=== PATIENT | female | born 1965 | race Caucasian/White ===

== ENCOUNTER 2018-01-09 17:49 | Inpatient (IN) | payer OTHER ==
--- NOTE | 2018-01-09 17:59 | PDOC ---
Rapid Medical Evaluation Chief Complaint: Dialysis Shunt Problem Time Seen by Provider: 01/09/18 17:56 Medical Evaluation: 01/09/18 17:56 patient came from [facility] yesterday on dialysis there reports missing one day of dialysis. patient reports feels dizzy and nausea, chest pain. history CRF, HTN, diabetes. PE: patient alert ox3. breath sounds clear, b/l pedal edema A: missed dialysis; chest pain P; labs EKG patient to the Er for further management of care. 01/09/18 18:00 Discharge Disposition - Diagnosis Missed dialysis Chest pain Qualifiers: Chest pain type: unspecified Qualified Code(s): R07.9 - Chest pain, unspecified - Referrals - Patient Instructions - Post Discharge Activity
[2018-01-09 18:49] LABS: BASO % 0.5 % (0-2.0); EOS % 0.8 % (0-4.5); HEMOGLOBIN 9.2 GM/dL (10.7-15.3); LYMPH % 12.5 % (8-40); MCH 27.2 pg (25.7-33.7); MCHC 32.7 g/dl (32.0-36.0); MEAN PLT VOLUME 9.1 fl (7.5-11.1); MONO % 5.4 % (3.8-10.2); NEUT % 80.8 % (42.8-82.8); PLATELET COUNT 187 K/MM3 (134-434); RBC 3.37 M/mm3 (3.60-5.2); RDW 16.2 % (11.6-15.6); WHITE BLOOD COUNT 7.3 K/mm3 (4.0-10.0)
--- NOTE | 2018-01-09 19:00 | PDOC ---
History of Present Illness - General Chief Complaint: Blood Pressure Problem Stated Complaint: Weakness Time Seen by Provider: 01/09/18 17:56 - History of Present Illness Initial Comments: 01/09/18 18:48 52 yo F with h/o HTN, ESRD ( dialysis M, ), CAD, who p/w fatigue, and chest tightness. Patient reports non pleuritic, chest tightness at rest, SOB, non productive cough, fatigue, and wheezing beginning this AM. Patient recently arrives from [facility] yesterday following 8 year residence. States that she missed dialysis yesterday, and is concerned because her symptoms are typical of her missed dialysis. Able to produce urine. Patient denies N/V, F,C, Leg pain/swelling, Palpitations, Orthopnea, PND, urinary complaints, abdominal pain, diarrhea, constipation, lightheadedness, sensory changes. PMHx: as noted above ROS: as noted SHx: 1/2 ppd x 20 years. Denies Etoh, IVDA. Allergies: NKDA PMD: None Past History - Past Medical History Allergies/Adverse Reactions: Allergies Allergy/AdvReac Type Severity Reaction Status Date / Time No Known Allergies Allergy Verified 01/09/18 18:00 Home Medications: Ambulatory Orders Calcium Carbonate/Vitamin D3 [Calcium 500 + Vit D3 400 Tab] 1 each PO DAILY 03/17 Esomeprazole Magnesium 40 mg PO ASDIR 01/09/18 Folic Acid 5 mg PO DAILY 01/09/18 Isosorbide Mononitrate [Ismo -] 20 mg PO ASDIR 01/09/18 COPD: No Dialysis: Yes (friday and ) HTN: Yes - Suicide/Smoking/Psychosocial Hx Smoking History: Never smoked Review of Systems - Review of Systems Comments:: 01/09/18 19:00 GENERAL/CONSTITUTIONAL: No fever or chills. No weakness. HEAD, EYES, EARS, NOSE AND THROAT: No change in vision. No ear pain or discharge. No sore throat. CARDIOVASCULAR: +chest pain and shortness of breath RESPIRATORY: + cough, wheezing. No hemoptysis. GASTROINTESTINAL: No nausea, vomiting, diarrhea or constipation. GENITOURINARY: No dysuria, frequency, or change in urination. MUSCULOSKELETAL: No joint or muscle swelling or pain. No neck or back pain. SKIN: No rash NEUROLOGIC: No headache, vertigo, loss of consciousness, or change in strength/ sensation. ENDOCRINE: No increased thirst. No abnormal weight change HEMATOLOGIC/LYMPHATIC: No anemia, easy bleeding, or history of blood clots. ALLERGIC/IMMUNOLOGIC: No hives or skin allergy. *Physical Exam - Vital Signs Last Vital Signs Temp Pulse Resp BP Pulse Ox 98.5 F 91 H 22 H 201/102 H 99 01/09/18 18:06 10 18:06 01/09/18 18:06 01/09/18 18:06 01/09/18 18:06 - Physical Exam Comments: 01/09/18 19:00 GENERAL: Awake, alert, and fully oriented, in no acute distress HEAD: No signs of trauma, normocephalic, atraumatic EYES: PERRLA, EOMI, sclera anicteric, conjunctiva clear ENT: + Dry mucous membranes. Hearing grossly normal, nares patent, oropharynx clear without exudates. Moist mucosa NECK: Normal ROM, supple, no lymphadenopathy, JVD, or masses LUNGS: No distress, speaks full sentences, clear to auscultation bilaterally HEART: Regular rate and rhythm, normal S1 and S2, no murmurs, rubs or gallops, peripheral pulses normal and equal bilaterally. ABDOMEN: Soft, nontender, normoactive bowel sounds. No guarding, no rebound. No masses EXTREMITIES : Normal inspection, Normal range of motion, no edema. No clubbing or cyanosis. NEUROLOGICAL: Cranial nerves II through XII grossly intact. Normal speech, normal gait, no focal sensorimotor deficits SKIN: Warm, Dry, normal turgor, no rashes or lesions noted Heart Score/ECG Review - History History: Slightly suspicious - Electrocardiogram EKG: Non specific repolarization disturbance - Age Age: 45-65 - Risk Factors Risk Factors Heart Score: Yes Hx Hypercholesterolemia, Yes Hx Hypertension, Yes Smoking History, Yes Positive family hx of cardiac disease Based on the list above the patient has:: >/=3 risk factors or Hx atherosclerotic disease - Troponin Troponin: 1-3x normal limit - Score Heart Score - Total: 5 ED Treatment Course - LABORATORY CBC & Chemistry Diagram: 01/09/18 18:24 01/09/18 18:24 Medical Decision Making - Medical Decision Making 01/09/18 19:38 52 yo F with h/o HTN, ESRD ( dialysis M, Th), CAD, who p/w fatigue, and chest tightness. BP 201/102, Hr 91, RR 22, AF. ACS/VT r/o. Missed dialysis. Will evaluate for volume overload, cardiac dyssarythmias, electrolyte abnml, metabolic and toxic derangements, acid-base disturbances, infection. ED Course: 01/09/18 19:43 BUN/Cr: 70/8.2 Glu: 392 01/09/18 19:44 Trop: 0.08 01/09/18 19:49 EKG: Ectopic atrial rhythm, LVH. TWI lateral leads. Absent TERESA. Elevated heart score: 5 Plan to admit to inpt. 01/09/18 19:[address] Garcia. 01/09/18 21:[address] Banuelos. Agrees with dispo. Patient to receive dialysis in AM. *DC/Admit/Observation/Transfer Diagnosis at time of Disposition: Missed dialysis Chest pain Qualifiers: Chest pain type: unspecified Qualified Code(s): R07.9 - Chest pain, unspecified HTN (hypertension) Qualifiers: Hypertension type: unspecified secondary hypertension Qualified Code(s): I15.9 - Secondary hypertension, unspecified - Discharge Dispostion Decision to Admit order: Yes - Referrals - Patient Instructions - Post Discharge Activity
[2018-01-09 19:07] LABS: INR 1.14 (0.83-1.09); PROTHROMBIN TIME (PATIENT) 13.5 SEC (9.7-13.0)
[2018-01-09 19:30] LABS: ALBUMIN 2.8 g/dl (3.4-5.0); ALK PHOS 280 U/L (45-117); ANION GAP 13 MMOL/L (8-16); BILIRUBIN,TOTAL 0.4 mg/dL (0.2-1); BLOOD UREA NITROGEN 70 mg/dL (7-18); CALCIUM 8.9 mg/dL (8.5-10.1); CHLORIDE 100 mmol/L (98-107); CO2 22 mmol/L (21-32); MAGNESIUM 2.4 mg/dL (1.8-2.4); POTASSIUM 4.5 mmol/L (3.5-5.1); SGOT/AST 17 U/L (15-37); SGPT/ALT 21 U/L (13-61); SODIUM 134 mmol/L (136-145); TOT PROT 6.1 g/dl (6.4-8.2)
[2018-01-09 19:32] LABS: CREATININE 8.2 mg/dL (0.55-1.3); GLUCOSE,RANDOM 392 mg/dL (74-106)
--- NOTE | 2018-01-09 20:01 | PDOC ---
Attending Attestation - Resident Resident Name: JostinAndrewMiguel - ED Attending Attestation I have performed the following: I have examined & evaluated the patient, The case was reviewed & discussed with the resident, I agree w/resident's findings & plan, Exceptions are as noted - HPI HPI: 52y F hx of IDDM, CAD, htn, ESRD, CAD, presents with malaise and chest tightness. pt endorses some sob, nonprodctive cough, generalized weakness. Recent travel for [facility], had missed dialysis yesterday. PT notes her sx is cw her sypmtoms when she misses dialysis. pt noted hypertensive on arrival - Physicial Exam PE: 01/10/18 02:47 GENERAL: Awake, alert, and fully oriented, in no acute distress. HEAD: Normal with no signs of trauma. LUNGS: Breath sounds equal, clear to auscultation bilaterally. No wheezes, and no crackles. No accessory muscle use. HEART: Regular rate and rhythm, normal S1 and S2 with diastolic decrescendo murmur. ABDOMEN: Soft, nondistended EXT: b/l le edema - Medical Decision Making 01/10/18 02:48 esrd, kenny llikely need dialysis trop 0.08 will admit for further mangaement Heart Score/ECG Review - ECG Impressions Comment:: 01/09/18 22:23 Twelve-lead EKG was performed and reviewed by me. There is normal sinus rhythm with a normal rate. rate of 83 LVH, TWI in lateral leads
--- NOTE | 2018-01-09 21:18 | PN ---
Teaching Attending Note Name of Resident: Vincent Camara ATTENDING PHYSICIAN STATEMENT I saw and evaluated the patient. I reviewed the resident's note and discussed the case with the resident. I agree with the resident's findings and plan as documented. SUBJECTIVE: Patient is 52 year old woman with history of HTN, ESRD (dialysis M, Th), insulin -treated DM, CAD, who p/w fatigue, and chest tightness. Patient reports non pleuritic, chest tightness at rest, SOB, non productive cough, fatigue, and wheezing beginning this AM. Patient recently arrived on a long airline flight from [facility] yesterday following 8 year residence. States that she missed dialysis yesterday, and is concerned because her symptoms are typical of her missed dialysis. Able to produce urine. She vomited twice but had no diarrhea. Patient denies leg pain, palpitations, orthopnea, PND, urinary complaints or lightheadedness. OBJECTIVE: Alert, Pale and Weak Vital Signs Period Temp Pulse Resp BP Sys/Shields Pulse Ox Last 24 Hr 98.5 F 88-91 17-22 176-201/90-102 95-99 HEENT: No Jaundice, eye redness or discharge, PERRLA, EOMI. Normocephalic, atraumatic. External ears are normal and hearing is grossly intact. No nasal discharge. Neck: Supple, nontender. No palpable adenopathy or thyromegaly. No JVD Chest: Good effort. Clear to auscultation and percussion. Heart: Regular. No S3, rub or murmur Abdomen: Not distended, soft, nontender and no HSM. No rebound or guarding. Normoactive bowel sounds. Ext: Peripheral pulses intact. Leg edema. Left forearm AVF. Skin: Warm and dry. No petechiae, rash or ecchymosis. Neuro: Alert. Oriented x3. CN 2-12 grossly intact. Sensation grossly intact in all four extremities and DTR are symmetric. Home Medications Medication Instructions Recorded Calcium Carbonate/Vitamin D3 1 each PO DAILY 01/09/18 [Calcium 500 + Vit D3 400 Tab] Esomeprazole Magnesium 40 mg PO ASDIR 01/09/18 Folic Acid 5 mg PO DAILY 01/09/18 Isosorbide Mononitrate [Ismo -] 20 mg PO ASDIR 01/09/18 Abnormal Lab Results 01/09/18 01/09/1801/09/18 18:24 18:24 18:24 RBC 3.37 L Hgb 9.2 L Hct 28.0 L RDW 16.2 H PT with INR 13.50 H INR 1.14 H Sodium 134 L BUN 70 H Creatinine 8.2 H* Random Glucose 392 H* Alkaline Phosphatase 280 H Troponin I 0.08 H Total Protein 6.1 L Albumin 2.8 L ASSESSMENT AND PLAN: 1. Chest pain - Mildly elevated troponin may be due to demand ischemia but she also has T wave inversion in lateral leads. Repeat troponin is unchanged and EKG changes are fixed. Admit to telemetry. Get ECHO. Will rule out PE/DVT with ( VQ scan, doppler scan) in view of long flight from [facility]. Abdominal findings may be due to uremic gastritis. Will get CT scan of chest, abd/pelvis and treat with IV protonix. ESRD - consult nephrology for dialysis. Check HbA1c. Restart home antihypertensive drugs. 2. Hypoalbuminemia - Possibly due to combined effects of malnutrition and inflammation associated with comorbid chronic conditions. Will ensure adequate dietary protein intake and also consult strategic analyst. Ensure adequate dialysis. 3. Anemia - Likely chiefly due to ESRD. Do basic anemia work up including serial stool guaiacs, reticulocyte count and iron studies. Would benefit from Procrit therapy once iron replete. 4. Tobacco Use We will provide patient all the necessary assistance to facilitate smoking cessation and prescribe Nicotine patch. 5. DVT prophylaxis - Heparin 5000u sq tid. 6. Advance directives - Full code
--- NOTE | 2018-01-09 21:37 | HP ---
CHIEF COMPLAINT: chest pain, abdominal pain PCP: HISTORY OF PRESENT ILLNESS: Patient is a 52 year old female history of ESRD (HD ) hypertension, CAD, diabetes mellitus, presents with complaint of chest pain and abdominal pain. States this is due to her missing last hemodialysis appointment due to recent travel (over 13 hour flight) from [facility] yesterday. Last HD this Friday. Chest pain described as constant, sharp, and pressure-like over center of chest, nonradiating to back, arm, or jaw. Worsened when lying flat. Denies palliative features. Abdominal pain is diffuse, but worst at epigastrum, nonradiating. Also described as sharp, and associated with two episodes of nonbloody, nonbillious vomiting. Today she ate half a can of corn, and slice of wheat bread. Denies fevers, chills, shortness of breath, cough, palpitations, lightheadedness, trauma, fall, loss of consciousness. ER course was notable for: (1) Troponins 0.08 X2. EKG shows normal sinus rhythm at 83 bpm. (2) CT chest, abdomen, pelvis. Duplex US lower extremities negative for DVT (3) BUN 70, Creatinine 8.2 Recent Travel: Arrived to [facility] from [facility] earlier this week. PAST MEDICAL HISTORY: ESRD (HD Fri, ) hypertension, CAD, diabetes mellitus PAST SURGICAL HISTORY: Cholecystectomy approx. 15 years ago Social History: Smoking: smokes 1/2 pack a day for past 20 years Alcohol: denies Drugs: denies Family History: Allergies No Known Allergies Allergy (Verified 01/09/18 18:00) HOME MEDICATIONS: Home Medications Medication Instructions Recorded Calcium Carbonate/Vitamin D3 1 each PO DAILY 01/09/18 [Calcium 500 + Vit D3 400 Tab] Esomeprazole Magnesium 40 mg PO ASDIR 01/09/18 Folic Acid 5 mg PO DAILY 01/09/18 Isosorbide Mononitrate [Ismo -] 20 mg PO ASDIR 01/09/18 REVIEW OF SYSTEMS CONSTITUTIONAL: Admits: generalized weakness. Absent: fever, chills, diaphoresis HEENT: Absent: rhinorrhea, nasal congestion, throat pain, throat swelling, difficulty swallowing, CARDIOVASCULAR: Admits: chest pain. Denies: syncope, palpitations, irregular heart rate, lightheadedness RESPIRATORY: Absent: cough, shortness of breath, dyspnea with exertion, orthopnea, wheezing, GASTROINTESTINAL: Admits: abdominal pain, abdominal distension, nausea, vomiting Denies: diarrhea , constipation, melena, hematochezia GENITOURINARY: Absent: dysuria, frequency, urgency, hesitancy, hematuria, NEUROLOGIC: Absent: headache, focal weakness or paresthesias, dizziness, unsteady gait, bladder or bowel incontinence PHYSICAL EXAMINATION Vital Signs - 24 hr 01/09/18 01/09/18 18:06 20:02 Temperature 98.5 F Pulse Rate 91 H 88 Pulse Rate [ 88 Right Radial] Respiratory 22 H 17 Rate Blood Pressure 201/102 H Blood Pressure 176/90 H [Right Arm] O2 Sat by Pulse 99 95 Oximetry (%) GENERAL: Awake, alert, and fully oriented, in no acute distress. HEAD: Normal with no signs of trauma. EYES: Pupils equal, round and reactive to light, extraocular movements intact, sclera anicteric, conjunctiva clear. EARS, NOSE, THROAT: Ears normal, nares patent, oropharynx clear without exudates. Moist mucous membranes. NECK: Normal range of motion, supple without lymphadenopathy, JVD. LUNGS: Breath sounds equal, clear to auscultation bilaterally. No wheezes, and no crackles. No accessory muscle use. HEART: Regular rate and rhythm, normal S1 and S2 with diastolic decrescendo murmur. ABDOMEN: Soft, diffusely tender to palpation, worst in epigastrum and RUQ not distended. Normoactive bowel sounds X4 quadrants. No guarding, no rebound tendernes. No hepatomegaly or splenomegaly. MUSCULOSKELETAL: Normal range of motion at all joints. No bony deformities or tenderness. UPPER EXTREMITIES: 2+ radial pulses b/l, warm, well-perfused. No cyanosis. LOWER EXTREMITIES: 2+ dorsalis pedis pulses. B/L calf tenderness (patient states this is not new finding), nonpitting edema of b/l lower extremeties. NEUROLOGICAL: Cranial nerves II-XII intact. Normal speech. Normal gait. PSYCHIATRIC: Cooperative. Good eye contact. Appropriate mood and affect. SKIN: Warm, dry, normal turgor, no rashes or lesions noted, normal capillary refill. Laboratory Results - last 24 hr 01/09/18 01/09/18 01/09/18 18:24 18:24 18:24 WBC 7.3 RBC 3.37 L Hgb 9.2 L Hct 28.0 L MCV 83.0 MCH 27.2 MCHC 32.7 RDW 16.2 H Plt Count 187 MPV 9.1 Absolute Neuts (auto) 5.9 Neutrophils % 80.8 Lymphocytes % 12.5 Monocytes % 5.4 Eosinophils % 0.8 Basophils % 0.5 Nucleated RBC % 0 PT with INR 13.50 H INR 1.14 H Sodium 134 L Potassium 4.5 Chloride 100 Carbon Dioxide 22 Anion Gap 13 BUN 70 H Creatinine 8.2 H* Creat Clearance w eGFR 5.12 Random Glucose 392 H* Calcium 8.9 Magnesium 2.4 Total Bilirubin 0.4 AST 17 ALT 21 Alkaline Phosphatase 280 H Creatine Kinase 129 Troponin I 0.08 H Total Protein 6.1 L Albumin 2.8 L ASSESSMENT/PLAN: Patient is a 52 year old female history of ESRD (HD Fri, ) hypertension, CAD, diabetes mellitus, presents with complaint of chest pain and abdominal pain that began today. Chest pain -May be secondary to myocardial infarction vs pulmonary embolism -EKG shows normal sinus rhythm at 83 bpm. Repeat EKG is unchanged. -Troponins 0.08 X2. Will continue to trend. -F/U noncontrast CT chest. Unable to perform CTA to rule out PE as her Creatinine is 8.2 -Duplex lower extremities negative for DVT b/l -F/U cardiac echo -F/U cardiology consult Abdominal pain -Unclear etiology. Potentially uremic gastritis -F/U CT abdomen, pelvis without contrast -IV protonix 40mg IV stat -Protonix 40mg PO daily -F/U GI consult (Dr. Gonzalez) ESRD -Patient's last HD was Friday01/05/2018 -Nephrology consult (Dr. Banuelos). ED has discussed with Dr. Banuelos, patient for HD tomorrow HTN -Reinstate home dosage Carvedilol 6.25mg daily DM -ISS ACHS -BGM ACHS -F/U A1c FEN -No IV fluids -Follow CMP -Diabetic, salt controlled diet Prophylaxis -Heparin 500usubq TID Disposition -Admit to telemetry Visit type - Emergency Visit Emergency Visit: Yes ED Registration Date: 01/09/18 Care time: The patient presented to the Emergency Department on the above date and was hospitalized for further evaluation of their emergent condition. - New Patient This patient is new to me today: Yes Date on this admission: 01/10/18 - Critical Care Critical Care patient: No
[2018-01-09] MEDS ORDERED: PANTOPRAZOLE SODIUM 40 MG VIAL IVPUSH ONE (21:59)
[2018-01-09] MEDS ORDERED: CARVEDILOL 6.25 MG TABLET (FP) PO SCH (22:00)
[2018-01-09] MEDS ORDERED: PANTOPRAZOLE SODIUM 40 MG/100 ML BAG IVPB ONE (22:07)
[2018-01-09] MEDS ORDERED: CARVEDILOL 3.125 MG TABLET (FP) ONE (22:27)
[2018-01-09] MEDS ORDERED: HEPARIN NA (PORCINE) 5,000 UNITS/ML 1ML VIAL ONE (22:27)
[2018-01-09] MEDS: HEPARIN NA (PORCINE) 5,000 UNITS/ML 1ML VIAL SQ SCH (22:30)
[2018-01-10] MEDS: HEPARIN NA (PORCINE) 5,000 UNITS/ML 1ML VIAL SQ SCH ×3 (07:20→21:13)
[2018-01-10] MEDS: INSULIN SLIDING SCALE (NOVOLOG) 1 VIAL SQ SCH ×4 (07:21→21:14)
[2018-01-10] MEDS ORDERED: SODIUM CHLORIDE 250 ML IV PRN (08:45)
[2018-01-10] MEDS ORDERED: EPOETIN ALFA 20,000 UNIT/1 ML VIAL IVPUSH ONE (08:45)
--- NOTE | 2018-01-10 08:45 | CONSULT ---
Consult - text type - Consultation Consultation Note: Renal Consult for ESRD on HD This is a 52 year old woman with history of ESRD on HD (x 7 months), Hypertension, CAD, DM who presented with complaints of abd pain and weakness. Last dialysis was Friday. Pt was getting dialysis twice a week in [facility]. History obtained from nephew who is unsure of the etiology of her ESRD. [place] any sob, or cp at the present time. No N/V/D. No fever or chills. PMhx: as above Allergies: NKDA Family Hx: NC Social Hx: No T/A/D ROS: as per HPI, limited because of language barrier Home Medications Medication Instructions Recorded Calcium Carbonate/Vitamin D3 1 each PO DAILY 01/09/18 [Calcium 500 + Vit D3 400 Tab] Esomeprazole Magnesium 40 mg PO ASDIR 01/09/18 Folic Acid 5 mg PO DAILY 01/09/18 Isosorbide Mononitrate [Ismo -] 20 mg PO ASDIR 01/09/18 Vital Signs Temperature 97.9 F 01/10/18 05:32 Pulse Rate 79 01/10/18 05:32 Respiratory Rate 18 01/10/18 05:32 Blood Pressure 159/82 01/10/18 05:32 O2 Sat by Pulse Oximetry (%) 98 01/10/18 05:32 Intake & Output 01/07/18 01/08/18 01/09/18 01/10/18 23:59 23:59 23:59 23:59 Weight 57.606 kg 58.287 kg NAD, appears uncomfortable Neck supple no JVD, MMM RRR, no M/R CTA, dec bs at lung bases soft NT/ND trace LE edema, no clubbing or cyanosis Left arm AVF CBC, BMP 01/09/18 18:24 01/09/18 18:24 Current Medications Carvedilol (Coreg -) 6.25 mg PO BID [facility] Heparin Sodium (Porcine) (Heparin -) 5,000 unit SQ TID [facility] Last Admin: 01/10/18 07:20 Dose: Not Given Insulin Aspart (Novolog Vial Sliding Scale -) 1 vial SQ ACHS [facility]; Protocol Last Admin: 01/10/18 07:21 Dose: Not Given Pantoprazole Sodium (Protonix -) 40 mg PO DAILY [facility] 52 year old woman with history of ESRD on HD (x 7 months), Hypertension, CAD, DM who presented with complaints of abd pain and weakness. #ESRD on HD with missed treatment #Abd pain #Hypertension #Anemia #Hypertension #DM Will plan for HD today as inpatient, 3.5 hour hd with 2-2.5L UF as tolerated informed conset obtained from nephew and is in the chart as per family pt is going to move to [place] to live with her son, outpatient dialysis would be needed in [place] continue work up for Abd pain continue coreg, trend BP following HD and fluid removal Will give EMMA with HD, check iron profile continue insulin sliding scale Thank you Will follow Joshua Banuelos DO
[2018-01-10] MEDS ORDERED: NICOTINE 21 MG/24 HOURS TOPICAL PATCH TD STA (11:12)
--- NOTE | 2018-01-10 13:08 | PN ---
Progress Note (short form) - Note Progress Note: patient is doing well she has no issues overnight, her chest discomfort is atypical in nature. Chest pain - resolved -Duplex lower extremities negative for DVT b/l -F/U echocardiogram friday -F/U cardiology consult Abdominal pain -Unclear etiology. Potentially uremic gastritis -F/U CT abdomen, pelvis without contrast -protonix 40mg po daily -F/U GI consult (Dr. Gonzalez) ESRD -Patient's last HD was Friday01/05/2018 -Nephrology consult (Dr. Banuelos). ED has discussed with Dr. Banuelos, patient for HD tomorrow - social work on board for the evaluation of the patient for dialysis, HTN -Reinstate home dosage Carvedilol 6.25mg daily DM -ISS ACHS -BGM ACHS -F/U A1c FEN -No IV fluids -Follow CMP -Diabetic, salt controlled diet Prophylaxis -Heparin 500usubq TID
[2018-01-10 13:09] LABS: HEMATOCRIT 25.9 % (32.4-45.2); HEMOGLOBIN 8.7 GM/dL (10.7-15.3); MCH 27.7 pg (25.7-33.7); MCHC 33.5 g/dl (32.0-36.0); MEAN CELL VOLUME 82.7 fl (80-96); MEAN PLT VOLUME 9.2 fl (7.5-11.1); PLATELET COUNT 178 K/MM3 (134-434); RBC 3.13 M/mm3 (3.60-5.2); RDW 16.8 % (11.6-15.6); WHITE BLOOD COUNT 5.9 K/mm3 (4.0-10.0)
[2018-01-10 14:26] LABS: ALBUMIN 2.5 g/dl (3.4-5.0); ALK PHOS 257 U/L (45-117); ANION GAP 12 MMOL/L (8-16); BILIRUBIN,TOTAL 0.4 mg/dL (0.2-1); BLOOD UREA NITROGEN 74 mg/dL (7-18); CALCIUM 8.1 mg/dL (8.5-10.1); CHLORIDE 103 mmol/L (98-107); CO2 19 mmol/L (21-32); MAGNESIUM 2.4 mg/dL (1.8-2.4); PHOSPHOROUS 5.5 mg/dL (2.5-4.9); POTASSIUM 4.3 mmol/L (3.5-5.1); SGOT/AST 19 U/L (15-37); SGPT/ALT 19 U/L (13-61); SODIUM 134 mmol/L (136-145); TOT PROT 5.6 g/dl (6.4-8.2)
[2018-01-10 14:30] LABS: CREATININE 8.4 mg/dL (0.55-1.3); GLUCOSE,RANDOM 372 mg/dL (74-106)
[2018-01-10] MEDS: PANTOPRAZOLE 40 MG TABLET (FP) PO SCH (14:31)
[2018-01-10] MEDS: CARVEDILOL 6.25 MG TABLET (FP) PO SCH ×2 (14:31→21:13)
--- NOTE | 2018-01-10 15:14 | CON.CARD ---
Consult Consult Specialty:: Cardiology Referred by:: Hospitalist Reason for Consultation:: Chest pain, elevated troponin - History of Present Illness Chief Complaint: chest pain, sob History of Present Illness: 52 year old woman pmh HTN, ESRD on HD, DMII, CAD unknown details admitted with chest pain and abdominal pain and a missed HD session after traveling from [facility]. Pts brother acted as refinery operator helper cracking unit. pt was seen and examined today in [facility]. she is currently on HD. denies any current complaints. denies any chest pain, sob, palpitations. no pnd, orthopnea, or LE edema. - History Source History Provided By: Patient, Family Member Limitations to Obtaining History: Language Barrier - Past Medical History Cardio/Vascular: Yes: HTN Renal/: Yes: Renal Failure, Hemodialysis ...: No - Alcohol/Substance Use Hx Alcohol Use: No - Smoking History Smoking history: Current every day smoker Have you smoked in the past 12 months: Yes Aproximately how many cigarettes per day: 20 - Social History ADL: Independent History of Recent Travel: No Home Medications - Allergies Allergies/Adverse Reactions: Allergies Allergy/AdvReac Type Severity Reaction Status Date / Time No Known Allergies Allergy Verified 01/09/18 18:00 - Home Medications Home Medications: Ambulatory Orders Calcium Carbonate/Vitamin D3 [Calcium 500 + Vit D3 400 Tab] 1 each PO DAILY 03/17 Esomeprazole Magnesium 40 mg PO ASDIR 01/09/18 Folic Acid 5 mg PO DAILY 01/09/18 Isosorbide Mononitrate [Ismo -] 20 mg PO ASDIR 01/09/18 Family Disease History - Family Disease History Family History: Denies Review of Systems - Review of Systems Constitutional: denies: No Symptoms, Chills, Diaphoresis, Fever, Lethargy, Loss of Appetite, Malaise, Night Sweats, Unintentional Wgt. Loss, Weakness, Other Eyes: denies: No Symptoms, Blind Spots, Blurred Vision, Double Vision, Eye Pain , Floaters, Photophobia, Recent Change in Vision, Other HENT: denies: No Symptoms, Difficult Swallowing, Ear Discharge, Ear Pain, Epistaxis, Gingival Bleeding, Hearing Loss, Mouth Swelling, Nasal Congestion, Ocular Prosthesis, Throat Pain, Toothache, Ringing in Ears, Other Neck: denies: No Symptoms, Decreased ROM, Lumps, Pain on Movement, Stiffness, Swollen Glands, Tenderness, Other Cardiovascular: reports: Chest Pain. denies: No Symptoms, Edema, Palpitations, Shortness of Breath, Other Respiratory: denies: No Symptoms, Cough, Exercise Intolerance, Hemoptysis, Orthopnea, PND, Snoring, SOB, SOB on Exertion, Wheezing, Other Gastrointestinal: reports: Abdominal Pain. denies: No Symptoms, Bloating, Constipation, Diarrhea, Dysphagia, Indigestion, Melena, Nausea, Rectal Bleeding , Vomiting, Vomiting Blood, Other Genitourinary: denies: No Symptoms, Burning, Discharge, Dysuria, Flank Pain, Frequency, Hematuria, Incontinence, Lesions, Menses, Pain, Testicular Mass, Testicular Pain, Testicular Swelling, Urgency, Vaginal Bleeding, Other Breasts: denies: No Symptoms Reported, See HPI, Breast Implants, Discharge from Nipple, Lumps, Pain, Skin Changes, Other Musculoskeletal: denies: No Symptoms, Back Pain, Crepitus, Decreased ROM, Extremity Pain, Joint Pain, Joint Swelling, Muscle Pain, Muscle Cramps, Muscle Weakness, Other Integumentary: denies: No Symptoms, Blister, Bruising, Change in Color, Eczema, Erythema, Incision, Lesions, Lump, Pallor, Pruritis, Rash, Wound, Other Neurological: denies: No Symptoms, Change in LOC, Change in Speech, Confusion, Dizziness, Headache, Incoordination, Numbness, Parasthesia, Pre-Existing Deficit , Seizure, Syncope, Tremors, Unsteady Gait, Weakness, Other Endocrine: denies: No Symptoms, Excessive Sweating, Flushing, Increased Hunger, Increased Thirst, Intolerance to Cold, Intolerance to Heat, Unexplained Weight Gain, Unexplained Weight Loss, Other Hematology/Lymphatic: denies: No Symptoms, Easily Bruised, Excessive Bleeding, Swollen Glands, Other Psychiatric: denies: No Symptoms, Altered Sleep Pattern, Anxiety, Depression, Hallucinations, Panic, Paranoia, Suicidal, Other Vital Signs: Vital Signs Temperature 98.8 F 01/10/18 12:15 Pulse Rate 80 01/10/18 14:50 Respiratory Rate 18 01/10/18 14:50 Blood Pressure 172/105 H 01/10/18 14:50 O2 Sat by Pulse Oximetry (%) 98 01/10/18 09:00 Constitutional: Yes: Well Nourished, No Distress, Calm Eyes: Yes: WNL, Conjunctiva Clear, EOM Intact HENT: Yes: WNL, Atraumatic, Normocephalic Neck: Yes: WNL, Supple, Trachea Midline Respiratory: Yes: WNL, Regular, CTA Bilaterally. No: Rales, Rhonchi, Wheezes Gastrointestinal: Yes: Normal Bowel Sounds, Soft. No: Distention, Tenderness Cardiovascular: Yes: Regular Rate and Rhythm. No: Bradycardia, Tachycardia, Pulse Irregular, Gallop, Rub, Varicosities JVD: No Carotid Bruit: No PMI: Non-Displaced Heart Sounds: Yes: S1, S2. No: Split S2, S3, S4, Clicks, Gallop, Rub, Bruit Murmur: No: Systolic Murmur, Diastolic Murmur Musculoskeletal: Yes: WNL Extremities: Yes: WNL Edema: No Peripheral Pulses WNL: Yes Peripheral Pulses: 2+ Left Doralis Pedis, 2+ Right Dorsalis Pedis Integumentary: Yes: WNL Neurological: Yes: WNL, Alert, Oriented Psychiatric: Yes: Alert, Oriented - Other Data Labs, Other Data: CBC, BMP 01/10/18 12:20 01/10/18 12:20 INR, PTT INR 1.14 (0.83-1.09) H 01/09/18 18:24 Troponin, BNP 01/09/18 01/09/18 01/10/18 18:24 21:20 01:11 Troponin I 0.08 H 0.08 H 0.08 H Troponin, BNP 01/09/18 01/09/18 01/10/18 18:24 21:20 01:11 Troponin I 0.08 H 0.08 H 0.08 H ekg-nsr, lvh 83bpm, possible lateral ischemia Echo: Pending Imaging - Results Chest X-ray: Report Reviewed, Image Reviewed EKG: Report Reviewed, Image Reviewed Other: Report Reviewed, Image Reviewed (tele-nsr, sinus tach) Assessment/Plan 52 year old woman pmh HTN, ESRD on HD, DMII, CAD unknown details admitted with chest pain and abdominal pain and a missed HD session after traveling from [facility]. Pts brother acted as refinery operator helper cracking unit. pt was seen and examined today in [facility]. she is currently on HD. denies any current complaints. denies any chest pain, sob, palpitations. no pnd, orthopnea, or LE edema. Chest pain-atypical but with multiple cardiac risk factors, chest discomfort may be related to volume overload due to missing HD -ischemia on ekg -cardiac enzymes mildly elevated but did not trend up -cont tele for now -recc echo and pharm nuclear stress test to further evaluate for ischemia -cont coreg -start ASA if no contraindication -cont volume removal with HD as needed
--- NOTE | 2018-01-10 16:05 | CONS ---
DATE OF CONSULTATION: DATE OF DICTATION: 01/10/2018 HISTORY OF PRESENT ILLNESS: The patient is a 52-year-old female with a past medical history of end-stage renal disease on hemodialysis, hypertension, coronary artery disease, diabetes. She presented to the hospital with complaints of chest and abdominal pain which began suddenly, has been constant and sharp; also, with associated pressure-like chest pain. She states her pain is located in the epigastrium. She admits to two episodes of vomiting earlier. She was recently in [facility] earlier this week. She denies any melena, hematochezia, hematemesis, fevers, chills, culprit foods. She has not had a recent endoscopic evaluation. PAST MEDICAL HISTORY AND SURGICAL HISTORY: As listed in the HPI with the addition of a cholecystectomy 15 years ago. ALLERGIES: No known drug allergies. SOCIAL HISTORY: Smoked cigarettes for 20 years. Does not drink or use drugs. REVIEW OF SYSTEMS: Negative, except for pertinent positives listed in the HPI. HOME MEDICATIONS: Include calcium, esomeprazole, folic acid, and isosorbide. PHYSICAL EXAMINATION: Vital signs: Temperature is not recorded, pulse 80, blood pressure 170/105, respiratory rate 18. General: In no acute distress. HEENT: Anicteric sclerae. Cardiovascular: S1, S2. Regular rate and rhythm. Lungs: Bilaterally clear to auscultation. Abdomen: Soft. Her abdominal exam was significant for tenderness in the epigastrium and right upper quadrant without any rebound or guarding. Bowel sounds were present. EXT: edema LABORATORIES: White blood cell count 5.9, hemoglobin and hematocrit 8.7 over 25 , MCV 82, platelet count 178. INR 1.1. Sodium 134, potassium 4.3, BUN over creatinine 74 over 8.4, glucose 372. Hemoglobin A1c 8.4. Troponin 0.08. Total bilirubin 0.4 , AST 19, ALT 19, alkaline phosphatase 257. Hepatitis panel is pending. CT results of the abdomen are pending at this time. IMPRESSION: Nausea, vomiting, and epigastric abdominal pain. Differential diagnosis includes abdominal pathology/ peptic ulcer disease/ biliary etiology/ infectious / uremia. However, considering her multiple risk factors for coronary artery disease, cardiac etiology cannot be completely excluded at this time. PLAN: Clear liquid diet. Follow up CT scan of the abdomen and pelvis results. Start her on Protonix 40 mg IV daily. Followup Cardiology consultation. Trend troponin. Further recommendations pending CT scan findings. Would also recommend a Nephrology consultation on this patient. DO ZIYAD HARVEY/[id number] MTDD
[2018-01-10] MEDS: NICOTINE 21 MG/24 HOURS TOPICAL PATCH TD SCH (18:39)
[2018-01-11] MEDS: HEPARIN NA (PORCINE) 5,000 UNITS/ML 1ML VIAL SQ SCH ×3 (06:14→21:10)
[2018-01-11] MEDS: INSULIN SLIDING SCALE (NOVOLOG) 1 VIAL SQ SCH ×4 (06:14→21:10)
[2018-01-11 06:37] LABS: SERUM IRON SATURATION 14 % (15-55); TOTAL IRON BINDING CAPACITY 250 ug/dL (250-450); UIBC 215 ug/dL (131-425)
--- NOTE | 2018-01-11 07:32 | PN ---
Progress Note, Physician Chief Complaint: pt states she is feeling much better today - (eating doritos with her family ) ( brewing technician was used during the visit) - Current Medication List Current Medications: Active Medications Carvedilol (Coreg -) 6.25 mg PO BID [facility] Last Admin: 01/10/18 21:13 Dose: 6.25 mg Heparin Sodium (Porcine) (Heparin -) 5,000 unit SQ TID [facility] Last Admin: 01/11/18 06:14 Dose: 5,000 unit Sodium Chloride (Normal Saline -) 250 mls @ 3,000 mls/hr IV PRN PRN PRN Reason: Hypotension during Dialysis Stop: 01/11/18 08:45 Insulin Aspart (Novolog Vial Sliding Scale -) 1 vial SQ ACHS [facility]; Protocol Last Admin: 01/11/18 06:14 Dose: 4 units Nicotine (Nicoderm Patch -) 21 mg TD DAILY [facility] Last Admin: 01/10/18 18:39 Dose: 21 mg Pantoprazole Sodium (Protonix -) 40 mg PO DAILY [facility] Last Admin: 01/10/18 14:31 Dose: 40 mg - Objective Vital Signs: Vital Signs Temperature 98.5 F 01/11/18 05:00 Pulse Rate 71 01/11/18 05:00 Respiratory Rate 18 01/11/18 05:00 Blood Pressure 154/75 01/11/18 05:00 O2 Sat by Pulse Oximetry (%) 98 01/10/18 21:00 Constitutional: Yes: Well Nourished, No Distress, Calm Eyes: Yes: WNL HENT: Yes: WNL Neck: Yes: WNL Cardiovascular: Yes: WNL Respiratory: Yes: WNL (epigastric tenderness without rebound or guarding , nml bs,) Musculoskeletal: Yes: WNL Extremities: Yes: WNL Edema: No Labs: CBC, BMP 01/10/18 12:20 01/10/18 12:20 INR, PTT INR 1.14 (0.83-1.09) H 01/09/18 18:24 Problem List - Problems (1) Abdominal pain Assessment/Plan: CT scan reviewed (non- contrast ) ? nodular liver and some nonspecific lymph notes - advance diet as tolerated - PPI therapy - cardiac evaluation in progress - Once she is cleared from a cardiac perspective she would benefit from an endoscopic evaluation to exclude PUD as an etiology of her discomfort. I will order a mri to further evaluate the biliary tree as well as the lymphadenopathy . Code(s): R10.9 - UNSPECIFIED ABDOMINAL PAIN (2) Chest pain Code(s): R07.9 - CHEST PAIN, UNSPECIFIED Qualifiers: Chest pain type: unspecified Qualified Code(s): R07.9 - Chest pain, unspecified
[2018-01-11] MEDS: PANTOPRAZOLE 40 MG TABLET (FP) PO SCH (09:18)
[2018-01-11] MEDS: CARVEDILOL 6.25 MG TABLET (FP) PO SCH ×2 (09:18→21:15)
[2018-01-11] MEDS: NICOTINE 21 MG/24 HOURS TOPICAL PATCH TD SCH (09:19)
--- NOTE | 2018-01-11 09:27 | PN ---
Progress Note (short form) - Note Progress Note: patient is doing well she has no issues overnight, her chest discomfort is atypical in nature. PE: AAOx3 s1 and S2 rrr abdomen soft non-tender no edema Chest pain - resolved -Duplex lower extremities negative for DVT b/l -F/U echocardiogram friday -F/U cardiology consult - nuclear stress test friday due to ST segment depression in the lateral leads Abdominal pain -Unclear etiology. Potentially uremic gastritis -F/U CT abdomen, pelvis without contrast -protonix 40mg po daily -F/U GI consult (Dr. Gonzalez) ESRD -Patient's last HD was Friday01/05/2018 -Nephrology consult (Dr. Banuelos). ED has discussed with Dr. Banuelos, patient for HD tomorrow - social work on board for the evaluation of the patient for dialysis, HTN -Reinstate home dosage Carvedilol 6.25mg daily DM -ISS ACHS -BGM ACHS -F/U A1c FEN -No IV fluids -Follow CMP -Diabetic, salt controlled diet Prophylaxis -Heparin 500usubq TID
--- NOTE | 2018-01-11 10:58 | EKG ---
Test Reason : Blood Pressure : / mmHG Vent. Rate : 083 BPM Atrial Rate : 083 BPM P-R Int : 152 ms QRS Dur : 098 ms QT Int : 402 ms P-R-T Axes : 055 -18 141 degrees QTc Int : 472 ms NORMAL SINUS RHYTHM POSSIBLE LEFT ATRIAL ENLARGEMENT LEFT VENTRICULAR HYPERTROPHY PROLONGED QT ABNORMAL ECG WHEN COMPARED WITH ECG OF 09-JAN-2018 18:24, SINUS RHYTHM HAS REPLACED ECTOPIC ATRIAL RHYTHM Confirmed by HUNG WEBSTER MD ([id number]) on 01/11/2018 10:58:18 AM Referred By: Confirmed By:HUNG WEBSTER MD
--- NOTE | 2018-01-11 10:59 | EKG ---
Test Reason : Blood Pressure : / mmHG Vent. Rate : 085 BPM Atrial Rate : 085 BPM P-R Int : 142 ms QRS Dur : 096 ms QT Int : 398 ms P-R-T Axes : 147 -18 180 degrees QTc Int : 473 ms NORMAL SINUS RHYTHM VOLTAGE CRITERIA FOR LEFT VENTRICULAR HYPERTROPHY PROLONGED QT ABNORMAL ECG NO PREVIOUS ECGS AVAILABLE Confirmed by HUNG WEBSTER MD ([id number]) on 01/11/2018 10:59:07 AM Referred By: Confirmed By:HUNG WEBSTER MD
[2018-01-11 14:12] VITALS: BMI 20.6
--- NOTE | 2018-01-11 15:00 | PN ---
Progress Note, Physician History of Present Illness: seen and examined today in [facility]. no overnight events. no new complaints. - Current Medication List Current Medications: Active Medications Carvedilol (Coreg -) 6.25 mg PO BID [facility] Last Admin: 01/11/18 09:18 Dose: 6.25 mg Heparin Sodium (Porcine) (Heparin -) 5,000 unit SQ TID [facility] Last Admin: 01/11/18 06:14 Dose: 5,000 unit Insulin Aspart (Novolog Vial Sliding Scale -) 1 vial SQ ACHS [facility]; Protocol Last Admin: 01/11/18 11:54 Dose: 4 units Nicotine (Nicoderm Patch -) 21 mg TD DAILY [facility] Last Admin: 01/11/18 09:19 Dose: 21 mg Pantoprazole Sodium (Protonix -) 40 mg PO DAILY [facility] Last Admin: 01/11/18 09:18 Dose: 40 mg - Objective Vital Signs: Vital Signs Temperature 99.2 F 01/11/18 10:00 Pulse Rate 75 01/11/18 10:00 Respiratory Rate 20 01/11/18 10:00 Blood Pressure 158/79 01/11/18 10:00 O2 Sat by Pulse Oximetry (%) 98 01/11/18 09:00 Constitutional: Yes: Well Nourished, No Distress, Calm Eyes: Yes: WNL, Conjunctiva Clear, EOM Intact, PERRL HENT: Yes: WNL, Atraumatic, Normocephalic Neck: Yes: WNL, Supple, Trachea Midline Cardiovascular: Yes: WNL, Regular Rate and Rhythm, S1, S2. No: Bradycardia, Tachycardia, Pulse Irregular, Bruit, JVD, Gallop, Murmur, Rub, S3, S4, Varicosities Respiratory: Yes: Regular, CTA Bilaterally. No: Rales, Rhonchi, SOB, Wheezes Gastrointestinal: Yes: Normal Bowel Sounds, Soft. No: Distention, Tenderness Musculoskeletal: Yes: WNL Extremities: Yes: WNL Edema: No Peripheral Pulses WNL: Yes Neurological: Yes: Alert, Oriented Psychiatric: Yes: Alert, Oriented Labs: CBC, BMP 01/10/18 12:20 01/10/18 12:20 INR, PTT INR 1.14 (0.83-1.09) H 01/09/18 18:24 - ....Imaging Chest X-ray: Report Reviewed, Image Reviewed EKG: Report Reviewed, Image Reviewed Other: Report Reviewed, Image Reviewed (tele-nsr, sinus tach) Assessment/Plan 52 year old woman pmh HTN, ESRD on HD, DMII, CAD unknown details admitted with chest pain and abdominal pain and a missed HD session after traveling from [facility]. Chest pain-atypical but with multiple cardiac risk factors, chest discomfort may be related to volume overload due to missing HD -no further chest pain -ischemia on ekg -cardiac enzymes mildly elevated but did not trend up -cont tele for now -echo and nuclear stress test friday01/12/18 to further evaluate for ischemia, keep npo except meds after midnight tonight for stress test -cont coreg -start ASA if no contraindication -cont volume removal with HD as needed
[2018-01-11] MEDS ORDERED: INSULIN (NOVOLOG) ASPART 100 UNITS/ML 10ML VIAL ONE (20:32)
[2018-01-12] MEDS: INSULIN SLIDING SCALE (NOVOLOG) 1 VIAL SQ SCH ×4 (06:15→22:29)
[2018-01-12] MEDS: HEPARIN NA (PORCINE) 5,000 UNITS/ML 1ML VIAL SQ SCH ×3 (07:17→22:28)
--- NOTE | 2018-01-12 10:07 | ECHO ---
Name: NARCISO CUTLER Exam:Adult Echocardiogram Study Date: 01/12/2018 08:54 AM Age: 52 yrs Reason For Study: Chest pain Height: 65 in Weight: 127 lb BSA: 1.6 m2 MMode/2D Measurements & Calculations IVSd: 1.1 cm Ao root diam: 2.6 cm LVIDd: 5.7 cm LA dimension: 3.5 cm LVIDs: 4.9 cm LVPWd: 0.97 cm EDV(Teich): 160.1 ml MV Diam: 2.4 cm ESV(Teich): 115.4 ml LVOT diam: 2.0 cm TAPSE: 1.6 cm RV S Marco A: 11.1 cm/sec Doppler Measurements & Calculations MV E max marco a: 103.0 cm/sec MV area (1 diam): 4.7 cm2 MV A max marco a: 34.0 cm/sec MV Flow area(1diam): 4.7 cm2 MV E/A: 3.0 MV dec time: 0.18 sec AI P1/2t: 491.9 msec AI max marco a: 464.0 cm/sec AI max P.1 mmHg AI dec slope: 276.3 cm/sec2 MR max marco a: 499.5 cm/sec TR max marco a: 315.7 cm/sec MR max P.8 mmHg TR max P.9 mmHg PI end-d marco a: 153.4 cm/sec Med Peak E' Marco A: 4.5 cm/sec Med E/e': 23.1 Lat Peak E' Marco A: 5.1 cm/sec Lat E/e': 20.3 Procedure A complete two-dimensional transthoracic echocardiogram was performed (2D, M-mode, Doppler and color flow Doppler). Left Ventricle The left ventricle is normal in size. Left ventricular systolic function is severely reduced. Ejectio n Fraction = 25-30%. Mitral inflow reveals restrictive physiology with elevated filling pressure on TDI (E/E' 23). There is severe global hypokinesis of the left ventricle. Right Ventricle The right ventricle is normal size. The right ventricular systolic function is normal. RV systolic TD I is 11 cm/s. Atria The left atrial size is normal. Right atrial size is normal. Mitral Valve There is mild mitral annular calcification. There is mild to moderate mitral regurgitation. Tricuspid Valve The tricuspid valve is normal in structure and function. There is moderate to severe tricuspid regurg itation. The tricuspid regurgitant jet is eccentrically directed. Pulmonary artery systolic pressure is at elena st 55 mmHg assuming RA pressure of 15 mmHg (dilated IVC with <50% collapse). Aortic Valve There is mild aortic sclerosis.;. Mild aortic regurgitation. Pulmonic Valve The pulmonic valve is not well visualized. Mild pulmonic valvular regurgitation. Great Vessels The aortic root is normal size. Pericardium/Pleura There is no pericardial effusion. Interpretation Summary The left ventricle is normal in size. Left ventricular systolic function is severely reduced. There is severe global hypokinesis of the left ventricle. Ejection Fraction = 25-30%. Mitral inflow reveals restrictive physiology with elevated filling pressure on TDI (E/E' 23) The right ventricular systolic function is normal. The left atrial size is normal. Right atrial size is normal. There is mild mitral annular calcification. There is mild to moderate mitral regurgitation. There is moderate to severe tricuspid regurgitation. The tricuspid regurgitant jet is eccentrically directed. Pulmonary artery systolic pressure is at least 55 mmHg assuming RA pressure of 15 mmHg (dilated IVC w ith <50% collapse) There is mild aortic sclerosis. Mild aortic regurgitation. Mild pulmonic valvular regurgitation. There is no pericardial effusion. Previous study is not available for comparison Jcaky Mejia MD 01/12/2018 10:06 AM
[2018-01-12] MEDS ORDERED: REGADENOSON 0.4 MG/5 ML PRE-FILLED SYRINGE IVPUSH ONE ×2 (10:33→10:45)
[2018-01-12] MEDS: ASPIRIN COATED 81 MG TABLET.EC PO SCH (13:11)
[2018-01-12] MEDS: CARVEDILOL 6.25 MG TABLET (FP) PO SCH ×2 (13:12→22:29)
[2018-01-12] MEDS: PANTOPRAZOLE 40 MG TABLET (FP) PO SCH (13:12)
[2018-01-12] MEDS: NICOTINE 21 MG/24 HOURS TOPICAL PATCH TD SCH (13:13)
--- NOTE | 2018-01-12 13:53 | PN ---
GI Progress Note Subjective: No acute events Denies abdominal pain and states that she wants to go home "right now" - Objective Vital Signs: Vital Signs Temperature 98.2 F 01/12/18 11:00 Pulse Rate 78 01/12/18 11:00 Respiratory Rate 18 01/12/18 11:00 Blood Pressure 176/81 H 01/12/18 11:00 O2 Sat by Pulse Oximetry (%) 99 01/12/18 08:15 Constitutional: Calm Eyes: No: Sclera Icterus Cardiovascular: Yes: Regular Rate and Rhythm Respiratory: Yes: CTA Bilaterally Gastrointestinal Inspection: No: Distention ...Auscultate: Yes: Normoactive Bowel Sounds ...Palpate: No: Hepatomegaly, Splenomegaly, Tenderness ...Percussion: No: Tympanitic Edema: No (No LE edema) Neurological: Yes: Alert Labs: CBC, BMP 01/10/18 12:20 INR, PTT INR 1.14 (0.83-1.09) H 01/09/18 18:24 Hepatic Panel Total Bilirubin 0.4 mg/dL (0.2-1) 01/10/18 12:20 AST 19 U/L (15-37) 01/10/18 12:20 ALT 19 U/L (13-61) 01/10/18 12:20 Alkaline Phosphatase 257 U/L (45-117) H 01/10/18 12:20 Albumin 2.5 g/dl (3.4-5.0) L 01/10/18 12:20 Problem List - Problems (1) Abdominal pain Assessment/Plan: Resolved and tolerating PO.? if related to uncontrolled diabetes leading to gastroparesis: Renal/Diabetic diet: small portioned meals Elevated ALP: can f/u with MRCP: already ordered. check GGT F/U with Dr. Gonzalez as outpatient Code(s): R10.9 - UNSPECIFIED ABDOMINAL PAIN
[2018-01-12] MEDS ORDERED: EPOETIN ALFA 10,000 UNIT/1 ML VIAL IVPUSH ONE ×2 (14:30→16:00)
[2018-01-12 14:55] LABS: ALBUMIN 2.6 g/dl (3.4-5.0); ALK PHOS 247 U/L (45-117); ANION GAP 10 MMOL/L (8-16); BILIRUBIN,TOTAL 0.4 mg/dL (0.2-1); BLOOD UREA NITROGEN 42 mg/dL (7-18); CHLORIDE 103 mmol/L (98-107); CO2 27 mmol/L (21-32); CREATININE 5.9 mg/dL (0.55-1.3); GLUCOSE,RANDOM 153 mg/dL (74-106); MAGNESIUM 2.2 mg/dL (1.8-2.4); PHOSPHOROUS 4.4 mg/dL (2.5-4.9); POTASSIUM 3.7 mmol/L (3.5-5.1); SGOT/AST 14 U/L (15-37); SGPT/ALT 17 U/L (13-61); SODIUM 141 mmol/L (136-145); TOT PROT 5.9 g/dl (6.4-8.2)
[2018-01-12] MEDS ORDERED: SODIUM CHLORIDE 250 ML IV PRN (15:00)
--- NOTE | 2018-01-12 16:10 | PN ---
Physical Exam: SUBJECTIVE: Patient seen and examined at bedside this morning. Tolerating potato chips and sips of water without abdominal pain, nausea, or vomiting. Denies headaches, fevers, chills, shortness of breath, chest pain, palpitations. OBJECTIVE: Vital Signs Temperature 98.2 F 01/12/18 11:00 Pulse Rate 78 01/12/18 11:00 Respiratory Rate 18 01/12/18 11:00 Blood Pressure 176/81 H 01/12/18 11:00 O2 Sat by Pulse Oximetry (%) 99 01/12/18 08:15 GENERAL: Awake, alert, and fully oriented, in no acute distress. HEAD: Normal with no signs of trauma. EYES: Pupils equal, round and reactive to light, extraocular movements intact without nystagmus b/l, sclera anicteric, conjunctiva clear. EARS, NOSE, THROAT: Oropharynx clear without exudates. Moist mucous membranes. NECK: Normal range of motion, supple without lymphadenopathy, JVD. LUNGS: Breath sounds equal, clear to auscultation bilaterally. No wheezes, and no crackles. No accessory muscle use. HEART: Regular rate and rhythm, normal S1 and S2 with diastolic decrescendo murmur. ABDOMEN: Soft, nontender to palpation, not distended. Normoactive bowel sounds X4 quadrants. No guarding, no rebound tendernes. No hepatomegaly or splenomegaly appreciated. MUSCULOSKELETAL: Normal range of motion at all joints. No bony deformities or tenderness. UPPER EXTREMITIES: 2+ radial pulses b/l, warm, well-perfused. No cyanosis. Left upper extremity AVF noted. LOWER EXTREMITIES: 2+ dorsalis pedis pulses. B/L calf tenderness (patient states this is not new finding), nonpitting edema of b/l lower extremeties. NEUROLOGICAL: Cranial nerves II-XII intact. Normal speech. Normal gait. PSYCHIATRIC: Cooperative. Appropriate mood and affect upon my encounter today. SKIN: Warm, dry, Laboratory Results - last 24 hr 01/12/18 01/12/18 12:48 12:50 Sodium 141 Potassium 3.7 Chloride 103 Carbon Dioxide 27 Anion Gap 10 BUN 42 H Creatinine 5.9 H Creat Clearance w eGFR 7.48 POC Glucometer 156 Random Glucose 153 H Calcium 9.0 Phosphorus 4.4 Magnesium 2.2 Total Bilirubin 0.4 AST 14 L ALT 17 Alkaline Phosphatase 247 H Total Protein 5.9 L Albumin 2.6 L Active Medications Generic Name Dose Route Start Last Admin Trade Name Freq PRN Reason Stop Dose Admin Aspirin 81 mg 01/12/18 12:15 01/12/18 13:11 Ecotrin - PO 81 mg DAILY [facility]EN Administration Carvedilol 6.25 mg 01/10/18 10:00 01/12/18 13:12 Coreg - PO 6.25 mg BID CHEN Administration Epoetin Jordan 10,000 unit 01/12/18 16:00 Procrit - IVPUSH 01/12/18 16:01 ONCE ONE Heparin Sodium (Porcine) 5,000 unit 01/09/18 22:00 01/12/18 13:11 Heparin - SQ 5,000 unit TID [facility] Administration Sodium Chloride 250 mls @ 3,000 mls/hr 01/12/18 15:00 Normal Saline - IV 01/13/18 14:59 PRN PRN Hypotension during Dialysis Insulin Aspart 1 vial 01/10/18 07:00 01/12/18 13:12 Novolog Vial Sliding Scale - SQ Not Given ACHS [facility] Protocol Nicotine 21 mg 01/10/18 16:30 01/12/18 13:13 Nicoderm Patch - TD 21 mg DAILY [facility] Administration Pantoprazole Sodium 40 mg 01/10/18 10:00 01/12/18 13:12 Protonix - PO 40 mg DAILY [facility]EN Administration ASSESSMENT/PLAN: Patient is a 52 year old female history of ESRD (HD ) hypertension, CAD, diabetes mellitus, presents with complaint of chest pain and abdominal pain that began today. Chest pain -May be due to volume overload secondary to missed hemodialysis. -Cardiac echo: LV normal in size, global hypokinesis left ventricle. Systolic function severely reduced EF 25-30%. Mitral inflow restrictive physiology. -Nuclear stress test: Overall negative pharmacologic nuclear stress test. Small apical fixed defect (small tissue attenuation). Severely reduced left ventricular EF 22% -Cardiology consult (Dr. Crane) appreciated. Abdominal pain -Unclear etiology. Potentially uremic gastritis -CT abdomen, pelvis without contrast noted distended inferior vena cava (likely secondary to cardiac dysfunction), hepatic surface irregularity, likely cirrhosis with mild heptomegaly and splenomegaly. She is s/p cholecsytectomy. Prominent retroperitoneal lymph nodes to be followed up with future CT scan outpatient. -Protonix 40mg PO daily -GI consult (Dr. Gonzalez, [facility]) appreciated: Will advance diet (small portions) as tolerated. F/U MRCP, GGT for elevated alkaline phosphatase ESRD -Patient's last HD was Friday01/05/2018 -Nephrology consult (Dr. Banuelos). Patient had last HD 01/10/2018. 2.5kg weight removed. For HD today. HTN -Reinstate home dosage Carvedilol 6.25mg daily DM -ISS ACHS -BGM ACHS -A1c 8.4% FEN -No IV fluids -Follow CMP -Diabetic, salt controlled diet Prophylaxis -Heparin 500usubq TID -Pantoprazole 40mg PO daily Disposition -Continue care in telemetry floor. Visit type - Emergency Visit Emergency Visit: Yes ED Registration Date: 01/09/18 Care time: The patient presented to the Emergency Department on the above date and was hospitalized for further evaluation of their emergent condition. - New Patient This patient is new to me today: No - Critical Care Critical Care patient: No - Discharge Referral Referred to [facility] Med P.C.: No
--- NOTE | 2018-01-12 17:18 | PN ---
Progress Note (short form) - Note Progress Note: Came to see pt at the bedside earlier today. Away at stress test. For dialysis today with UF as tolerated. Joshua Banuelos DO
--- NOTE | 2018-01-12 19:30 | PN ---
Teaching Attending Note Name of Resident: Vannesa Reardon ATTENDING PHYSICIAN STATEMENT I saw and evaluated the patient. I reviewed the resident's note and discussed the case with the resident. I agree with the resident's findings and plan as documented. SUBJECTIVE: No complaints; seen with resident during HD and attempted to see earlier in day. No complaints. Doing well. 2.5 taken off last session. No CP, SOB. No edema. Negative stress test today, echo 25-30% LVEF with global LV hypokinesis , severe TR and other less severe valvular pathology noted. PAP at least 55mmHg OBJECTIVE: No edema, no JVD/HJR VSS, labs reviewed RRR, S1/2 Minor scattered crackles ASSESSMENT AND PLAN: 1) ESRD on HD: per nephrology with fluid removal, etc. 2) Severe cardiomyopathy (EF <30%): Followup with CV, fluid removal in HD, continue current meds. Eval if device would be appropriate. No cardiogenic shock, etc. Etiology is unclear 3) Severe TR 4) Chest Pain: negative stress test. 5) DMII 6) HTN 7) Pulmonary HTN: No [facility] records Full Code
--- NOTE | 2018-01-12 21:20 | PN ---
Progress Note, Physician Chief Complaint: Patient appears comfortable. She reports no SOB at rest, chest pain or palpitation. Tele shows sinus rhythm at 75 BPM with rare VPCs. History of Present Illness: 52 year old woman pmh HTN, ESRD on HD, DMII, CAD unknown details admitted with chest pain and abdominal pain and a missed HD session after traveling from [facility]. Echocardiogram 01/12/2018: Normal LV size with severe global LV systolic dysfunction. LVEF = 25-30%. Normal RV. Mild to moderate MR. Moderate to severe TR. Mild AI. Moderate pulm HTN. PASP = 55 mmHg. Regadenoson nuclear stress test 01/12/2018: Fixed apical defect, likely soft tissue attenuation. Severe LV systolic dysfunction. LVEF = 22%. - Current Medication List Current Medications: Active Medications Aspirin (Ecotrin -) 81 mg PO DAILY [facility] Last Admin: 01/12/18 13:11 Dose: 81 mg Carvedilol (Coreg -) 6.25 mg PO BID [facility] Last Admin: 01/12/18 13:12 Dose: 6.25 mg Heparin Sodium (Porcine) (Heparin -) 5,000 unit SQ TID [facility] Last Admin: 01/12/18 13:11 Dose: 5,000 unit Sodium Chloride (Normal Saline -) 250 mls @ 3,000 mls/hr IV PRN PRN PRN Reason: Hypotension during Dialysis Stop: 01/13/18 14:59 Insulin Aspart (Novolog Vial Sliding Scale -) 1 vial SQ ACHS [facility]; Protocol Last Admin: 01/12/18 16:49 Dose: 10 units Nicotine (Nicoderm Patch -) 21 mg TD DAILY [facility] Last Admin: 01/12/18 13:13 Dose: 21 mg Pantoprazole Sodium (Protonix -) 40 mg PO DAILY [facility] Last Admin: 01/12/18 13:12 Dose: 40 mg - Objective Vital Signs: Vital Signs Temperature 97.5 F L 01/12/18 17:00 Pulse Rate 62 01/12/18 21:00 Respiratory Rate 18 01/12/18 21:00 Blood Pressure 148/72 01/12/18 21:00 O2 Sat by Pulse Oximetry (%) 99 01/12/18 08:15 General: Well developed. Well nourished. No acute distress. Head: Normocephalic. Atraumatic, Eyes: PERRLA, EOMI. Sclerae anicteric. Conjunctivae clear. Neck: Supple. No JVD. No bruits. Heart: Normal S1, S2: Regular rhythm and rate. No murmur. No gallop or rub. Lungs: Symmetrical air entry. Clear to auscultation. No crackle. No wheezing or rhonchi. Abdomen: Soft. Bowel sound positive. Non tender. No masses. Extremities: No edema. No clubbing or cyanosis. PD 2+, equal bilaterally. Labs: CBC, BMP 01/10/18 12:20 01/12/18 12:48 INR, PTT INR 1.14 (0.83-1.09) H 01/09/18 18:24 Assessment/Plan 52 year old woman pmh HTN, ESRD on HD, DMII, CAD unknown details admitted with chest pain and abdominal pain and a missed HD session after traveling from [facility]. Echocardiogram 01/12/2018: Normal LV size with severe global LV systolic dysfunction. LVEF = 25-30%. Normal RV. Mild to moderate MR. Moderate to severe TR. Mild AI. Moderate pulm HTN. PASP = 55 mmHg. Regadenoson nuclear stress test 01/12/2018: Fixed apical defect, likely soft tissue attenuation. Severe LV systolic dysfunction. LVEF = 22%. 1) Systolic CHF, non-ischemic cardiomyopathy, chronic. No physical signs of fluid overload. -Continue carvedilol 6.25 mg BID. -Start Losartan 50 mg daily. -Start Aldactone 25 mg daily. -Hemodialysis to prevent fluid overload. -May need AICD if LV systolic function remains poor in 2-3 months. 2) Chest pain-atypical. Regadenoson nuclear stress test 01/12/2018 showed no evidence of stress induced ischemia. -Continue aspirin 81 mg daily. Close out-patient cardiac follow up. Please call us for reconsult as needed.
[2018-01-12] MEDS ORDERED: INSULIN (NOVOLOG) ASPART 100 UNITS/ML 10ML VIAL ONE (22:22)
[2018-01-13] MEDS: HEPARIN NA (PORCINE) 5,000 UNITS/ML 1ML VIAL SQ SCH ×3 (05:34→21:08)
[2018-01-13 06:06] LABS: HBSAG SCREEN Negative (Negative); HEP A AB, IGM Negative (Negative); HEP B CORE AB, TOT Positive (Negative)
[2018-01-13] MEDS: INSULIN SLIDING SCALE (NOVOLOG) 1 VIAL SQ SCH ×4 (06:10→21:12)
[2018-01-13 06:54] LABS: BASO % 0.6 % (0-2.0); EOS % 1.2 % (0-4.5); HEMATOCRIT 26.4 % (32.4-45.2); HEMOGLOBIN 8.7 GM/dL (10.7-15.3); LYMPH % 19.8 % (8-40); MCH 27.5 pg (25.7-33.7); MCHC 33.2 g/dl (32.0-36.0); MEAN PLT VOLUME 9.3 fl (7.5-11.1); MONO % 8.7 % (3.8-10.2); NEUT % 69.7 % (42.8-82.8); PLATELET COUNT 151 K/MM3 (134-434); RBC 3.18 M/mm3 (3.60-5.2); RDW 16.9 % (11.6-15.6); WHITE BLOOD COUNT 4.3 K/mm3 (4.0-10.0)
[2018-01-13 07:24] LABS: ALBUMIN 2.3 g/dl (3.4-5.0); ALK PHOS 245 U/L (45-117); ANION GAP 8 MMOL/L (8-16); BILIRUBIN,TOTAL 0.4 mg/dL (0.2-1); BLOOD UREA NITROGEN 19 mg/dL (7-18); CALCIUM 8.2 mg/dL (8.5-10.1); CHLORIDE 103 mmol/L (98-107); CO2 30 mmol/L (21-32); CREATININE 3.4 mg/dL (0.55-1.3); GAMMA GLUTAMYL TRANSPEPTIDASE 52 U/L (5-85); GLUCOSE,RANDOM 233 mg/dL (74-106); MAGNESIUM 1.8 mg/dL (1.8-2.4); PHOSPHOROUS 3.2 mg/dL (2.5-4.9); POTASSIUM 3.7 mmol/L (3.5-5.1); SGOT/AST 32 U/L (15-37); SGPT/ALT 27 U/L (13-61); SODIUM 142 mmol/L (136-145); TOT PROT 5.3 g/dl (6.4-8.2)
[2018-01-13] MEDS: NICOTINE 21 MG/24 HOURS TOPICAL PATCH TD SCH (10:18)
[2018-01-13] MEDS: ASPIRIN COATED 81 MG TABLET.EC PO SCH (10:19)
[2018-01-13] MEDS: CARVEDILOL 6.25 MG TABLET (FP) PO SCH ×2 (10:19→21:08)
[2018-01-13] MEDS: PANTOPRAZOLE 40 MG TABLET (FP) PO SCH (10:19)
--- NOTE | 2018-01-13 15:20 | PN ---
Progress Note (short form) - Note Progress Note: Renal follow up for ESRD on HD Pt seen and examined at the bedside no acute complaints no sob, cp,abd pain, N/V/D s/p HD yesterday s/p stress test yesterday Vital Signs Temperature 98.9 F 01/13/18 14:08 Pulse Rate 71 01/13/18 14:08 Respiratory Rate 20 01/13/18 14:08 Blood Pressure 150/74 01/13/18 14:08 O2 Sat by Pulse Oximetry (%) 96 01/13/18 09:00 Intake & Output 01/10/18 01/11/18 01/12/18 01/13/18 23:59 23:59 23:59 23:59 Intake Total 750 610 850 120 Balance 750 610 850 120 Weight 58.287 kg 56.245 kg 57.606 kg 57.425 kg NAD, appears uncomfortable Neck supple no JVD, MMM RRR, no M/R CTA, dec bs at lung bases soft NT/ND trace LE edema, no clubbing or cyanosis Left arm AVF CBC, BMP 01/13/18 05:30 01/13/18 05:30 Current Medications Aspirin (Ecotrin -) 81 mg PO DAILY [facility] Last Admin: 01/13/18 10:19 Dose: 81 mg Carvedilol (Coreg -) 6.25 mg PO BID [facility] Last Admin: 01/13/18 10:19 Dose: 6.25 mg Heparin Sodium (Porcine) (Heparin -) 5,000 unit SQ TID [facility] Last Admin: 01/13/18 05:34 Dose: 5,000 unit Insulin Aspart (Novolog Vial Sliding Scale -) 1 vial SQ ACHS [facility]; Protocol Last Admin: 01/13/18 14:47 Dose: Not Given Nicotine (Nicoderm Patch -) 21 mg TD DAILY [facility] Last Admin: 01/13/18 10:18 Dose: 21 mg Pantoprazole Sodium (Protonix -) 40 mg PO DAILY [facility] Last Admin: 01/13/18 10:19 Dose: 40 mg 52 year old woman with history of ESRD on HD (x 7 months), Hypertension, CAD, DM who presented with complaints of abd pain and weakness. #ESRD on HD with missed treatment #Abd pain #Hypertension #Anemia #Hypertension #DM no acute indication for [employer] today next treatment planned for tomorrow continue coreg as per cardiology can start ARB if needed per cardiology renal diet, 1.2L fluid restriction social work regarding outpatient HD placement Joshua Banuelos DO
--- NOTE | 2018-01-13 16:35 | PN ---
GI Progress Note Subjective: Laying in bed in no distress Denies abdominal pain - Objective Vital Signs: Vital Signs Temperature 98.9 F 01/13/18 14:08 Pulse Rate 71 01/13/18 14:08 Respiratory Rate 20 01/13/18 14:08 Blood Pressure 150/74 01/13/18 14:08 O2 Sat by Pulse Oximetry (%) 96 01/13/18 09:00 Constitutional: Calm Eyes: No: Sclera Icterus Cardiovascular: Yes: Regular Rate and Rhythm, Murmur Respiratory: Yes: CTA Bilaterally Gastrointestinal Inspection: No: Distention ...Auscultate: Yes: Normoactive Bowel Sounds ...Palpate: No: Tenderness Edema: No (No LE edema) Neurological: Yes: Alert Labs: CBC, BMP 01/13/18 05:30 01/13/18 05:30 INR, PTT INR 1.14 (0.83-1.09) H 01/09/18 18:24 Laboratory Tests 01/13/18 05:30 GGT 52 Problem List - Problems (1) Abdominal pain Assessment/Plan: Resolved Await MRCP to evaluate elevated ALP. ? secondary to pasive congestion from cardiac dysfunction ? if alternate source as GGT is wnl. W/U of alternate source of elevated ALP per primary team Code(s): R10.9 - UNSPECIFIED ABDOMINAL PAIN
--- NOTE | 2018-01-13 18:50 | PN ---
Teaching Attending Note Name of Resident: Vannesa Reardon ATTENDING PHYSICIAN STATEMENT I saw and evaluated the patient. I reviewed the resident's note and discussed the case with the resident. I agree with the resident's findings and plan as documented. SUBJECTIVE: Seen and examined; no new complaints. Denies abdominal pain, bone pain, diarrheal sx. She is hemodynamically stable. 1.8 off yesterday at HD. CV added ARB due to underlying issues with heart. HD per nephrology. Will need to plan for OP HD but she may be moving to [place]. Awaiting MRCP OBJECTIVE: VSS, labs reviewed AAOx3, NAD, spoke to using family to translate RRR s1/2; no change in murmur Lungs without acute findings, sym expansion NT ND +BS no HSM ASSESSMENT AND PLAN: 1) ESRD on HD: Continue management as per nephrology; scheduled HD with followup to be arranged. Monitor lytes. 2) CHF: Added ARB; severe systolic and some diastolic dysfn with some valvular abnormalities. Likely needs further OP workup. Potential for device eval in future. 3) Elevated Alkaline Phosphatase: GGT wnl, MRCP pending. Etiology unclear; can likely be worked up as outpatient. Ddx is broad. 4) Severe TR: Followup with CV regarding ongoing management; no new issues 5) Chest Pain: negative stress test. 6) DMII: Continue current management 7) HTN: Added ARB today watching pressures 8) Pulmonary HTN: No [facility] records
--- NOTE | 2018-01-13 19:02 | PN ---
Physical Exam: SUBJECTIVE: Patient seen and examined at bedside this morning. Denies any acute complaints. Tolerating renal diet without abdominal pain, nausea, vomiting. Denies headaches, fevers, chills, shortness of breath, chest pain, palpitations. OBJECTIVE: Vital Signs Temperature 98.9 F 01/13/18 14:08 Pulse Rate 71 01/13/18 14:08 Respiratory Rate 20 01/13/18 14:08 Blood Pressure 150/74 01/13/18 14:08 O2 Sat by Pulse Oximetry (%) 96 01/13/18 09:00 GENERAL: Awake, alert, and fully oriented, in no acute distress. HEAD: Normal with no signs of trauma. EYES: Pupils equal, round and reactive to light, extraocular movements intact without nystagmus b/l, sclera anicteric, conjunctiva clear. EARS, NOSE, THROAT: Oropharynx clear without exudates. Moist mucous membranes. NECK: Normal range of motion, supple without lymphadenopathy, JVD. LUNGS: Breath sounds equal, clear to auscultation bilaterally. No wheezes, and no crackles. No accessory muscle use. HEART: Regular rate and rhythm, normal S1 and S2 with diastolic decrescendo murmur. ABDOMEN: Soft, nontender to palpation, not distended. Normoactive bowel sounds X4 quadrants. No guarding, no rebound tendernes. No hepatomegaly or splenomegaly appreciated. MUSCULOSKELETAL: Normal range of motion at all joints. No bony deformities or tenderness. UPPER EXTREMITIES: 2+ radial pulses b/l, warm, well-perfused. No cyanosis. Left upper extremity AVF noted. LOWER EXTREMITIES: 2+ dorsalis pedis pulses. B/L calf tenderness (patient states this is not new finding), nonpitting edema of b/l lower extremeties. NEUROLOGICAL: Cranial nerves II-XII intact. Normal speech. Normal gait. PSYCHIATRIC: Cooperative. Appropriate mood and affect upon my encounter today. SKIN: Warm, dry, Laboratory Results - last 24 hr 01/13/18 01/13/18 01/13/18 05:30 05:30 05:36 WBC 4.3 RBC 3.18 L Hgb 8.7 L Hct 26.4 L MCV 83.0 MCH 27.5 MCHC 33.2 RDW 16.9 H Plt Count 151 MPV 9.3 Absolute Neuts (auto) 3.0 Neutrophils % 69.7 Lymphocytes % 19.8 D Monocytes % 8.7 Eosinophils % 1.2 Basophils % 0.6 Nucleated RBC % 1 H Sodium 142 Potassium 3.7 Chloride 103 Carbon Dioxide 30 Anion Gap 8 BUN 19 H Creatinine 3.4 H Creat Clearance w eGFR 14.13 POC Glucometer 248 Random Glucose 233 H Calcium 8.2 L Phosphorus 3.2 Magnesium 1.8 Total Bilirubin 0.4 GGT 52 AST 32 ALT 27 Alkaline Phosphatase 245 H Total Protein 5.3 L Albumin 2.3 L Hep A IgM Ab Confirm Hepatitis A Ab Total Hep Bs Antigen Hep Bs Antibody Hep B Core Total Ab Hep C Ab Diagnostic Liver Fibrosis Interp Active Medications Generic Name Dose Route Start Last Admin Trade Name Freq PRN Reason Stop Dose Admin Aspirin 81 mg 01/12/18 12:15 01/13/18 10:19 Ecotrin - PO 81 mg DAILY [facility] Administration Carvedilol 6.25 mg 01/10/18 10:00 01/13/18 10:19 Coreg - PO 6.25 mg BID [facility]EN Administration Heparin Sodium (Porcine) 5,000 unit 01/09/18 22:00 01/13/18 16:06 Heparin - SQ Not Given TID [facility]EN Insulin Aspart 1 vial 01/10/18 07:00 01/13/18 18:28 Novolog Vial Sliding Scale - SQ 6 units ACHS [facility] Administration Protocol Nicotine 21 mg 01/10/18 16:30 01/13/18 10:18 Nicoderm Patch - TD 21 mg DAILY [facility] Administration Pantoprazole Sodium 40 mg 01/10/18 10:00 01/13/18 10:19 Protonix - PO 40 mg DAILY [facility] Administration ASSESSMENT/PLAN: Patient is a 52 year old female history of ESRD (HD ) hypertension, CAD, diabetes mellitus, presents with complaint of chest pain and abdominal pain that began today. Chest pain -May be due to volume overload secondary to missed hemodialysis. -Cardiac echo: LV normal in size, global hypokinesis left ventricle. Systolic function severely reduced EF 25-30%. Mitral inflow restrictive physiology. -Nuclear stress test: Overall negative pharmacologic nuclear stress test. Small apical fixed defect (small tissue attenuation). Severely reduced left ventricular EF 22% -Cardiology consult (Dr. Crane) appreciated. Abdominal pain -Unclear etiology. Potentially uremic gastritis -CT abdomen, pelvis without contrast noted distended inferior vena cava (likely secondary to cardiac dysfunction), hepatic surface irregularity, likely cirrhosis with mild heptomegaly and splenomegaly. She is s/p cholecsytectomy. Prominent retroperitoneal lymph nodes to be followed up with future CT scan outpatient. -Protonix 40mg PO daily -GI consult (Dr. Gonzalez, [facility]) appreciated: Will advance diet (small portions) as tolerated. F/U MRCP, GGT for elevated alkaline phosphatase ESRD -Patient's last HD was Friday01/05/2018 -Nephrology consult (Dr. Banuelos). Patient had last HD 01/12/2018. 1.8kg fluid weight removed. HTN -Reinstate home dosage Carvedilol 6.25mg daily DM -ISS ACHS -BGM ACHS -A1c 8.4% FEN -No IV fluids -Follow CMP -Diabetic, salt controlled diet Prophylaxis -Heparin 500usubq TID -Pantoprazole 40mg PO daily Disposition -Continue care in telemetry floor. Visit type - Emergency Visit Emergency Visit: Yes ED Registration Date: 01/09/18 Care time: The patient presented to the Emergency Department on the above date and was hospitalized for further evaluation of their emergent condition. - New Patient This patient is new to me today: No - Critical Care Critical Care patient: No - Discharge Referral Referred to [facility] Med [facility].C.: No
[2018-01-14] MEDS ORDERED: INSULIN (NOVOLOG) ASPART 100 UNITS/ML 10ML VIAL ONE (05:59)
[2018-01-14] MEDS: INSULIN SLIDING SCALE (NOVOLOG) 1 VIAL SQ SCH ×4 (06:02→22:40)
[2018-01-14] MEDS: HEPARIN NA (PORCINE) 5,000 UNITS/ML 1ML VIAL SQ SCH ×3 (06:02→22:35)
[2018-01-14] MEDS: NICOTINE 21 MG/24 HOURS TOPICAL PATCH TD SCH (09:43)
[2018-01-14] MEDS: PANTOPRAZOLE 40 MG TABLET (FP) PO SCH (09:43)
[2018-01-14] MEDS: CARVEDILOL 6.25 MG TABLET (FP) PO SCH ×2 (09:43→22:35)
[2018-01-14] MEDS: ASPIRIN COATED 81 MG TABLET.EC PO SCH (09:43)
[2018-01-14] MEDS ORDERED: EPOETIN ALFA 10,000 UNIT/1 ML VIAL IVPUSH ONE (10:15)
[2018-01-14] MEDS ORDERED: SODIUM CHLORIDE 250 ML IV PRN (10:16)
[2018-01-14] MEDS ORDERED: LOSARTAN POTASSIUM 50 MG TABLET (FP) PO SCH (14:30)
--- NOTE | 2018-01-14 14:47 | PN ---
Teaching Attending Note Name of Resident: Vincent Camara ATTENDING PHYSICIAN STATEMENT I saw and evaluated the patient. I reviewed the resident's note and discussed the case with the resident. I agree with the resident's findings and plan as documented with exceptions below. SUBJECTIVE: Patient seen and examined, no complaints, eager to go home. OBJECTIVE: Vital Signs Period Temp Pulse Resp BP Sys/Shields Pulse Ox Last 24 Hr 98 F-98.7 F 70-73 16-20 152-169/60-82 98-98 Intake & Output 01/11/18 01/12/18 01/13/18 01/14/18 23:59 23:59 23:59 23:59 Intake Total 610 850 600 130 Balance 610 850 600 130 Weight 124 lb 127 lb 126 lb 9.6 oz 129 lb 12.8 oz General: sitting in bed in no acute distress Chest: no rales or wheezing, good air entry Abdomen:soft, NT, ND, positive bowel sounds Extremities: no edema Home Medications Medication Instructions Recorded Calcium Carbonate/Vitamin D3 1 each PO DAILY 01/09/18 [Calcium 500-Vit D3 400 Tablet] Esomeprazole Magnesium 40 mg PO ASDIR 01/09/18 Folic Acid 5 mg PO DAILY 01/09/18 Isosorbide Mononitrate [Monoket -] 20 mg PO ASDIR 01/09/18 Aspirin Coated [Ecotrin -] 81 mg PO DAILY tablet.ec 01/13/18 Carvedilol [Coreg -] 6.25 mg PO BID tablet 01/13/18 Active Medications Aspirin (Ecotrin -) 81 mg PO DAILY [facility] Last Admin: 01/14/18 09:43 Dose: 81 mg Carvedilol (Coreg -) 6.25 mg PO BID [facility] Last Admin: 01/14/18 09:43 Dose: 6.25 mg Glipizide (Glucotrol -) 2.5 mg PO DAILY@0700 [facility] Heparin Sodium (Porcine) (Heparin -) 5,000 unit SQ TID [facility] Last Admin: 01/14/18 14:07 Dose: Not Given Sodium Chloride (Normal Saline -) 250 mls @ 3,000 mls/hr IV PRN PRN PRN Reason: Hypotension during Dialysis Stop: 01/15/18 10:15 Insulin Aspart (Novolog Vial Sliding Scale -) 1 vial SQ ACHS [facility]; Protocol Last Admin: 01/14/18 11:08 Dose: 2 units Losartan Potassium (Cozaar -) 50 mg PO DAILY [facility] Nicotine (Nicoderm Patch -) 21 mg TD DAILY [facility] Last Admin: 01/14/18 09:43 Dose: 21 mg Pantoprazole Sodium (Protonix -) 40 mg PO DAILY [facility] Last Admin: 01/14/18 09:43 Dose: 40 mg Laboratory Results - last 24 hr 01/13/18 01/13/18 01/14/18 17:27 21:07 05:58 POC Glucometer 277 151 208 01/14/18 10:50 POC Glucometer 186 ASSESSMENT AND PLAN: 52 yof with PMhx of ESRD (HD Fri, ) hypertension, CAD, diabetes mellitus admitted with chest/abdominal pain, found with acute on chronic systolic heart failure exacerbation from missing her HD. -Chest pain -Acute on chronic systolic heart failure exacerbation -Cardiomyopathy, likely ischemia -ESRD on HD -CAD -NIDDM, A1c 8.4 -Elevated Alk phos Plan: ACS ruled out, no events on telemetry. 2D echo/stress test noted. Cardiology input noted. Continue ASA/coreg/losartan. Fluid management with HD. Salt/fluid restriction, strict I/os, daily weights. Start low dose glipizide 2.5 mg daily, short acting. DVTPPX with heparin Transfer to med surg. D/c home when clinically improved and disposition arranged.
--- NOTE | 2018-01-14 15:14 | PN ---
Physical Exam: SUBJECTIVE: Patient seen and examined at bedside this morning. Denies any acute complaints. Her last hemodialysis was 01/12/2018. She is tolerating renal diet, in addition to meat with rice that her family has brought in without abdominal pain, nausea, vomiting. Denies headaches, fevers, chills, shortness of breath, chest pain, palpitations. OBJECTIVE: Vital Signs Temperature 98.7 F 01/14/18 14:12 Pulse Rate 73 01/14/18 14:12 Respiratory Rate 20 01/14/18 14:12 Blood Pressure 155/73 01/14/18 14:12 O2 Sat by Pulse Oximetry (%) 98 01/14/18 08:43 GENERAL: Awake, alert, and fully oriented, in no acute distress. HEAD: Normal with no signs of trauma. EYES: Pupils equal, round and reactive to light, extraocular movements intact without nystagmus b/l, sclera anicteric, conjunctiva clear. EARS, NOSE, THROAT: Oropharynx clear without exudates. Moist mucous membranes. NECK: Normal range of motion, supple without lymphadenopathy, JVD. LUNGS: Breath sounds equal, clear to auscultation bilaterally. No wheezes, and no crackles. No accessory muscle use. HEART: Regular rate and rhythm, normal S1 and S2 with diastolic decrescendo murmur. ABDOMEN: Soft, nontender to palpation, not distended. Normoactive bowel sounds X4 quadrants. No guarding, no rebound tendernes. No hepatomegaly or splenomegaly appreciated. MUSCULOSKELETAL: Normal range of motion at all joints. No bony deformities or tenderness. UPPER EXTREMITIES: 2+ radial pulses b/l, warm, well-perfused. No cyanosis. Left upper extremity AVF noted. LOWER EXTREMITIES: 2+ dorsalis pedis pulses. B/L calf tenderness (patient states this is not new finding), nonpitting edema of b/l lower extremeties. NEUROLOGICAL: Cranial nerves II-XII intact. Normal speech. Normal gait. PSYCHIATRIC: Cooperative. Appropriate mood and affect upon my encounter today. SKIN: Warm, dry, Laboratory Results - last 24 hr Laboratory Last Values WBC 4.3 K/mm3 (4.0-10.0) 01/13/18 05:30 RBC 3.18 M/mm3 (3.60-5.2) L 01/13/18 05:30 Hgb 8.7 GM/dL (10.7-15.3) L 01/13/18 05:30 Hct 26.4 % (32.4-45.2) L 01/13/18 05:30 MCV 83.0 fl (80-96) 01/13/18 05:30 MCH 27.5 pg (25.7-33.7) 01/13/18 05:30 MCHC 33.2 g/dl (32.0-36.0) 01/13/18 05:30 RDW 16.9 % (11.6-15.6) H 01/13/18 05:30 Plt Count 151 K/MM3 (134-434) 01/13/18 05:30 MPV 9.3 fl (7.5-11.1) 01/13/18 05:30 Absolute Neuts (auto) 3.0 K/mm3 (1.5-8.0) 01/13/18 05:30 Neutrophils % 69.7 % (42.8-82.8) 01/13/18 05:30 Lymphocytes % 19.8 % (8-40) D 01/13/18 05:30 Monocytes % 8.7 % (3.8-10.2) 01/13/18 05:30 Eosinophils % 1.2 % (0-4.5) 01/13/18 05:30 Basophils % 0.6 % (0-2.0) 01/13/18 05:30 Nucleated RBC % 1 % (0-0) H 01/13/18 05:30 Retic Count 3.08 % (0.5-1.5) H 01/10/18 12:20 PT with INR 13.50 SEC (9.7-13.0) H 01/09/18 18:24 INR 1.14 (0.83-1.09) H 01/09/18 18:24 Sodium 142 mmol/L (136-145) 01/13/18 05:30 Potassium 3.7 mmol/L (3.5-5.1) 01/13/18 05:30 Chloride 103 mmol/L (98-107) 01/13/18 05:30 Carbon Dioxide 30 mmol/L (21-32) 01/13/18 05:30 Anion Gap 8 MMOL/L (8-16) 01/13/18 05:30 BUN 19 mg/dL (7-18) H 01/13/18 05:30 Creatinine 3.4 mg/dL (0.55-1.3) H 01/13/18 05:30 Creat Clearance w eGFR 14.13 (>60) 01/13/18 05:30 POC Glucometer 186 UNITS (80-120) 01/14/18 10:50 Random Glucose 233 mg/dL (74-106) H 01/13/18 05:30 Hemoglobin A1c % 8.4 % (4.2-6.3) H 01/10/18 12:20 Calcium 8.2 mg/dL (8.5-10.1) L 01/13/18 05:30 Phosphorus 3.2 mg/dL (2.5-4.9) 01/13/18 05:30 Magnesium 1.8 mg/dL (1.8-2.4) 01/13/18 05:30 Iron 35 ug/dL (27-159) 01/10/18 12:20 TIBC 250 ug/dL (250-450) 01/10/18 12:20 Iron Saturation 14 % (15-55) L 01/10/18 12:20 Transferrin 191 mg/dL (200-370) L 01/10/18 12:20 Ferritin 127.7 ng/ml (8-388) 01/10/18 12:20 Total Bilirubin 0.4 mg/dL (0.2-1) 01/13/18 05:30 GGT 52 U/L (5-85) 01/13/18 05:30 AST 32 U/L (15-37) 01/13/18 05:30 ALT 27 U/L (13-61) 01/13/18 05:30 Alkaline Phosphatase 245 U/L (45-117) H 01/13/18 05:30 Creatine Kinase 129 IU/L (26-192) 01/09/18 18:24 Troponin I 0.08 ng/ml (0.00-0.05) H 01/10/18 01:11 Total Protein 5.3 g/dl (6.4-8.2) L 01/13/18 05:30 Albumin 2.3 g/dl (3.4-5.0) L 01/13/18 05:30 Hep A IgM Ab Confirm Negative (Negative) 01/10/18 12:20 Hepatitis A Ab Total Positive (Negative) H 01/10/18 12:20 Hep Bs Antigen Negative (Negative) 01/10/18 12:20 Hep Bs Antibody Non reactive (.) 01/10/18 12:20 Hep B Core Total Ab Positive (Negative) H 01/10/18 12:20 Hep C Ab Diagnostic <0.1 s/co ratio (0.0-0.9) 01/10/18 10:48 Liver Fibrosis Interp (.) 01/10/18 10:48 Active Medications Generic Name Dose Route Start Last Admin Trade Name Freq PRN Reason Stop Dose Admin Aspirin 81 mg 01/12/18 12:15 01/14/18 09:43 Ecotrin - PO 81 mg DAILY CHEN Administration Carvedilol 6.25 mg 01/10/18 10:00 01/14/18 09:43 Coreg - PO 6.25 mg BID CHEN Administration Glipizide 2.5 mg 01/15/18 07:00 Glucotrol - PO DAILY@0700 [facility] Heparin Sodium (Porcine) 5,000 unit 01/09/18 22:00 01/14/18 14:07 Heparin - SQ Not Given TID [facility] Sodium Chloride 250 mls @ 3,000 mls/hr 01/14/18 10:16 Normal Saline - IV 01/15/18 10:15 PRN PRN Hypotension during Dialysis Insulin Aspart 1 vial 01/10/18 07:00 01/14/18 11:08 Novolog Vial Sliding Scale - SQ 2 units ACHS CHEN Administration Protocol Losartan Potassium 50 mg 01/14/18 14:30 Cozaar - PO DAILY [facility]EN Nicotine 21 mg 01/10/18 16:30 01/14/18 09:43 Nicoderm Patch - TD 21 mg DAILY [facility] Administration Pantoprazole Sodium 40 mg 01/10/18 10:00 01/14/18 09:43 Protonix - PO 40 mg DAILY CHEN Administration ASSESSMENT/PLAN: Patient is a 52 year old female history of ESRD (HD ) hypertension, CAD, diabetes mellitus, presents with complaint of chest pain and abdominal pain that began today. Chest pain -May be due to volume overload secondary to missed hemodialysis. -Cardiac echo: LV normal in size, global hypokinesis left ventricle. Systolic function severely reduced EF 25-30%. Mitral inflow restrictive physiology. -Nuclear stress test: Overall negative pharmacologic nuclear stress test. Small apical fixed defect (small tissue attenuation). Severely reduced left ventricular EF 22% -Cardiology consult (Dr. Crane) appreciated. Abdominal pain -Unclear etiology. Potentially uremic gastritis -CT abdomen, pelvis without contrast noted distended inferior vena cava (likely secondary to cardiac dysfunction), hepatic surface irregularity, likely cirrhosis with mild heptomegaly and splenomegaly. She is s/p cholecsytectomy. Prominent retroperitoneal lymph nodes to be followed up with future CT scan outpatient. -Protonix 40mg PO daily -GI consult (Dr. Gonzalez, [facility]) appreciated: Will advance diet (small portions) as tolerated. -MRCP shows no choledocholithiasis, or pancreaticobiliary ductal dilation. Enlarged right hepatic lobe noted at 22.5cm length. Atrophic kidneys b/l. Peritoneal lymph nodes will need outpatient follow up. -Alkaline phosphatase trending down. GGT 52. No transaminitis. Uncertain etiology. ESRD Patient had last HD 01/12/2018. 1.8kg fluid weight removed. -Nephrology consult (Dr. Banuelos) appreciated. -Patient for HD today HTN -Reinstate home dosage Carvedilol 6.25mg daily DM -ISS ACHS -BGM ACHS -HbA1c 8.4% FEN -No IV fluids -Follow CMP -Diabetic, salt controlled diet Prophylaxis -Heparin 500usubq TID -Pantoprazole 40mg PO daily Disposition -Continue care in medical-surgical floor. Patient is pending medical insurance for outpatient hemodialysis. Visit type - Emergency Visit Emergency Visit: Yes ED Registration Date: 01/09/18 Care time: The patient presented to the Emergency Department on the above date and was hospitalized for further evaluation of their emergent condition. - New Patient This patient is new to me today: No - Critical Care Critical Care patient: No - Discharge Referral Referred to [facility] Med P.C.: No
[2018-01-14 16:10] LABS: HEMATOCRIT 26.7 % (32.4-45.2); HEMOGLOBIN 8.5 GM/dL (10.7-15.3); MCHC 32.1 g/dl (32.0-36.0); MEAN CELL VOLUME 84.2 fl (80-96); MEAN PLT VOLUME 9.3 fl (7.5-11.1); PLATELET COUNT 176 K/MM3 (134-434); RBC 3.17 M/mm3 (3.60-5.2); RDW 17.8 % (11.6-15.6); WHITE BLOOD COUNT 3.5 K/mm3 (4.0-10.0)
[2018-01-14 16:33] LABS: ALBUMIN 2.3 g/dl (3.4-5.0); ALK PHOS 242 U/L (45-117); ANION GAP 6 MMOL/L (8-16); BILIRUBIN,TOTAL 0.3 mg/dL (0.2-1); BLOOD UREA NITROGEN 23 mg/dL (7-18); CALCIUM 8.5 mg/dL (8.5-10.1); CHLORIDE 107 mmol/L (98-107); CO2 29 mmol/L (21-32); CREATININE 3.7 mg/dL (0.55-1.3); GLUCOSE,RANDOM 194 mg/dL (74-106); PHOSPHOROUS 2.5 mg/dL (2.5-4.9); POTASSIUM 3.3 mmol/L (3.5-5.1); SGOT/AST 22 U/L (15-37); SGPT/ALT 27 U/L (13-61); SODIUM 142 mmol/L (136-145); TOT PROT 5.2 g/dl (6.4-8.2)
--- NOTE | 2018-01-14 17:47 | PN ---
Progress Note (short form) - Note Progress Note: Renal follow up for ESRD on HD Pt seen and examined at the bedside feels good and wants to go home denies any sob, cp, abd pain for dialysis today Vital Signs Temperature 98.2 F 01/14/18 15:10 Pulse Rate 70 01/14/18 17:15 Respiratory Rate 18 01/14/18 17:15 Blood Pressure 166/77 01/14/18 17:15 O2 Sat by Pulse Oximetry (%) 98 01/14/18 08:43 Intake & Output 01/11/18 01/12/18 01/13/18 01/14/18 23:59 23:59 23:59 23:59 Intake Total 610 850 600 140 Balance 610 850 600 140 Weight 56.245 kg 57.606 kg 57.425 kg 58.876 kg NAD, appears uncomfortable Neck supple no JVD, MMM RRR, no M/R CTA, dec bs at lung bases soft NT/ND trace LE edema, no clubbing or cyanosis Left arm AVF CBC, BMP 01/14/18 15:15 01/14/18 15:15 Current Medications Aspirin (Ecotrin -) 81 mg PO DAILY [facility] Last Admin: 01/14/18 09:43 Dose: 81 mg Carvedilol (Coreg -) 6.25 mg PO BID [facility] Last Admin: 01/14/18 09:43 Dose: 6.25 mg Glipizide (Glucotrol -) 2.5 mg PO DAILY@0700 [facility] Heparin Sodium (Porcine) (Heparin -) 5,000 unit SQ TID [facility] Last Admin: 01/14/18 14:07 Dose: Not Given Sodium Chloride (Normal Saline -) 250 mls @ 3,000 mls/hr IV PRN PRN PRN Reason: Hypotension during Dialysis Stop: 01/15/18 10:15 Insulin Aspart (Novolog Vial Sliding Scale -) 1 vial SQ ACHS [facility]; Protocol Last Admin: 01/14/18 11:08 Dose: 2 units Losartan Potassium (Cozaar -) 50 mg PO DAILY [facility] Nicotine (Nicoderm Patch -) 21 mg TD DAILY [facility] Last Admin: 01/14/18 09:43 Dose: 21 mg Pantoprazole Sodium (Protonix -) 40 mg PO DAILY [facility] Last Admin: 01/14/18 09:43 Dose: 40 mg 52 year old woman with history of ESRD on HD (x 7 months), Hypertension, CAD, DM who presented with complaints of abd pain and weakness. #ESRD on HD with missed treatment #Abd pain #Hypertension #Anemia #Hypertension #DM for HD today with UF as tolerated will need outpatient dialysis arranged but insurance situation is unclear at this time will give EMMA with HD for anemia Renal diet Joshua Banuelos DO
[2018-01-15] MEDS: HEPARIN NA (PORCINE) 5,000 UNITS/ML 1ML VIAL SQ SCH ×3 (05:44→21:29)
[2018-01-15] MEDS: glipiZIDE 5 MG TABLET (FP) PO SCH (06:02)
[2018-01-15] MEDS: INSULIN SLIDING SCALE (NOVOLOG) 1 VIAL SQ SCH ×4 (06:02→21:30)
[2018-01-15] MEDS ORDERED: LOSARTAN POTASSIUM 50 MG TABLET (FP) PO SCH (07:33)
--- NOTE | 2018-01-15 07:35 | PN ---
Teaching Attending Note Name of Resident: Vincent Camara ATTENDING PHYSICIAN STATEMENT I saw and evaluated the patient. I reviewed the resident's note and discussed the case with the resident. I agree with the resident's findings and plan as documented with exceptions below. SUBJECTIVE: Patient seen and examined. No complaints. OBJECTIVE: Vital Signs Period Temp Pulse Resp BP Sys/Shields Pulse Ox Last 24 Hr 98.2 F-98.8 F 62-77 15-20 148-179/60-80 98-98 Intake & Output 01/12/18 01/13/18 01/14/18 01/15/18 23:59 23:59 23:59 23:59 Intake Total 850 600 500 120 Balance 850 600 500 120 Weight 127 lb 126 lb 9.6 oz 129 lb 12.8 oz General: sitting in bed in no acute distress Chest: CTAB, no rales or wheezing Abdomen: soft, NT, ND Extremities: no edema Active Medications Aspirin (Ecotrin -) 81 mg PO DAILY [facility] Last Admin: 01/14/18 09:43 Dose: 81 mg Carvedilol (Coreg -) 6.25 mg PO BID [facility] Last Admin: 01/14/18 22:35 Dose: 6.25 mg Glipizide (Glucotrol -) 2.5 mg PO DAILY@0700 [facility] Last Admin: 01/15/18 06:02 Dose: 2.5 mg Heparin Sodium (Porcine) (Heparin -) 5,000 unit SQ TID [facility] Last Admin: 01/15/18 05:44 Dose: Not Given Sodium Chloride (Normal Saline -) 250 mls @ 3,000 mls/hr IV PRN PRN PRN Reason: Hypotension during Dialysis Stop: 01/15/18 10:15 Insulin Aspart (Novolog Vial Sliding Scale -) 1 vial SQ ACHS [facility]; Protocol Last Admin: 01/15/18 06:02 Dose: Not Given Losartan Potassium (Cozaar -) 100 mg PO DAILY [facility] Nicotine (Nicoderm Patch -) 21 mg TD DAILY [facility] Last Admin: 01/14/18 09:43 Dose: 21 mg Pantoprazole Sodium (Protonix -) 40 mg PO DAILY [facility] Last Admin: 01/14/18 09:43 Dose: 40 mg Laboratory Results - last 24 hr 01/14/18 01/14/18 01/14/18 15:15 15:15 16:32 WBC 3.5 L RBC 3.17 L Hgb 8.5 L Hct 26.7 L MCV 84.2 MCH 27.0 MCHC 32.1 RDW 17.8 H Plt Count 176 MPV 9.3 Sodium 142 Potassium 3.3 L Chloride 107 Carbon Dioxide 29 Anion Gap 6 L BUN 23 H Creatinine 3.7 H Creat Clearance w eGFR 12.81 POC Glucometer 194 Random Glucose 194 H Calcium 8.5 Phosphorus 2.5 Magnesium 2.0 Total Bilirubin 0.3 AST 22 ALT 27 Alkaline Phosphatase 242 H Total Protein 5.2 L Albumin 2.3 L 01/14/18 01/15/18 01/15/18 22:39 06:35 06:35 WBC 4.6 RBC 3.40 L Hgb 9.1 L Hct 28.8 L MCV 84.6 MCH 26.7 MCHC 31.6 L RDW 18.4 H Plt Count 160 MPV 9.3 Sodium 142 Potassium 3.9 Chloride 104 Carbon Dioxide 30 Anion Gap 7 L BUN 18 Creatinine 3.3 H Creat Clearance w eGFR 14.62 POC Glucometer 320 Random Glucose 186 H Calcium 8.5 Phosphorus 3.6 Magnesium 1.9 Total Bilirubin 0.3 AST 25 ALT 24 Alkaline Phosphatase 243 H Total Protein 5.3 L Albumin 2.2 L ASSESSMENT AND PLAN: 52 yof with PMhx of ESRD (HD Fri, ) hypertension, CAD, diabetes mellitus admitted with chest/abdominal pain, found with acute on chronic systolic heart failure exacerbation from missing her HD. -Chest pain -Acute on chronic systolic heart failure exacerbation -Cardiomyopathy, likely ischemia -ESRD on HD -CAD -NIDDM, A1c 8.4 -Elevated Alk phos Plan: ACS ruled out, no events on telemetry. 2D echo/stress test noted. Cardiology input noted. Continue ASA/coreg. Increase losartan 100 mg daily. Fluid management with HD. Salt/fluid restriction, strict I/os, daily weights. Start low dose glipizide 2.5 mg daily, short acting today, monitor blood sugars. MRCP noted, outpatient follow up. DVTPPX with heparin Transfer to med surg. D/c home when clinically improved and disposition arranged. Discuss with social work.
[2018-01-15 07:51] LABS: HEMATOCRIT 28.8 % (32.4-45.2); HEMOGLOBIN 9.1 GM/dL (10.7-15.3); MCH 26.7 pg (25.7-33.7); MCHC 31.6 g/dl (32.0-36.0); MEAN CELL VOLUME 84.6 fl (80-96); MEAN PLT VOLUME 9.3 fl (7.5-11.1); PLATELET COUNT 160 K/MM3 (134-434); RDW 18.4 % (11.6-15.6); WHITE BLOOD COUNT 4.6 K/mm3 (4.0-10.0)
[2018-01-15 08:16] LABS: ALBUMIN 2.2 g/dl (3.4-5.0); ALK PHOS 243 U/L (45-117); ANION GAP 7 MMOL/L (8-16); BILIRUBIN,TOTAL 0.3 mg/dL (0.2-1); BLOOD UREA NITROGEN 18 mg/dL (7-18); CALCIUM 8.5 mg/dL (8.5-10.1); CHLORIDE 104 mmol/L (98-107); CO2 30 mmol/L (21-32); CREATININE 3.3 mg/dL (0.55-1.3); GLUCOSE,RANDOM 186 mg/dL (74-106); MAGNESIUM 1.9 mg/dL (1.8-2.4); PHOSPHOROUS 3.6 mg/dL (2.5-4.9); POTASSIUM 3.9 mmol/L (3.5-5.1); SGOT/AST 25 U/L (15-37); SGPT/ALT 24 U/L (13-61); SODIUM 142 mmol/L (136-145); TOT PROT 5.3 g/dl (6.4-8.2)
[2018-01-15] MEDS: PANTOPRAZOLE 40 MG TABLET (FP) PO SCH (11:05)
[2018-01-15] MEDS: NICOTINE 21 MG/24 HOURS TOPICAL PATCH TD SCH (11:05)
[2018-01-15] MEDS: ASPIRIN COATED 81 MG TABLET.EC PO SCH (11:05)
[2018-01-15] MEDS: CARVEDILOL 6.25 MG TABLET (FP) PO SCH ×2 (11:06→21:29)
--- NOTE | 2018-01-15 16:45 | PN ---
Physical Exam: SUBJECTIVE: Patient seen and examined at bedside. Denies any acute complaints. Her last hemodialysis was 01/14/2018. She is tolerating renal diet, in addition to [employer] her family has brought in,without abdominal pain, nausea, vomiting. Denies headaches, fevers, chills, shortness of breath, chest pain, palpitations. Patient insists on going home, and AMA was discussed with patient at bedside with raw material planner (ID [id number]). Discussed risks of leaving without obtaining dialysis could lead to worsening condition, headache, lightheadedness, fall, loss of consciousness, trauma, . Discussed importance of her following up with primary care physician as well as field crew chief for her dialysis in [place]. Patient exhibits understanding, and still wants to leave tomorrow after one more round of dialysis. OBJECTIVE: Vital Signs Temperature 98.0 F 01/15/18 14:49 Pulse Rate 97 H 01/15/18 14:49 Respiratory Rate 20 01/15/18 11:46 Blood Pressure 141/55 L 01/15/18 14:49 O2 Sat by Pulse Oximetry (%) 98 01/15/18 09:00 GENERAL: Awake, alert, and fully oriented, in no acute distress. HEAD: Normal with no signs of trauma. EYES: Pupils equal, round and reactive to light, extraocular movements intact without nystagmus b/l, sclera anicteric, conjunctiva clear. EARS, NOSE, THROAT: Oropharynx clear without exudates. Moist mucous membranes. NECK: Normal range of motion, supple without lymphadenopathy, JVD. LUNGS: Breath sounds equal, clear to auscultation bilaterally. No wheezes, and no crackles. No accessory muscle use. HEART: Regular rate and rhythm, normal S1 and S2 with diastolic decrescendo murmur. ABDOMEN: Soft, nontender to palpation, not distended. Normoactive bowel sounds X4 quadrants. No guarding, no rebound tendernes. No hepatomegaly or splenomegaly appreciated. MUSCULOSKELETAL: Normal range of motion at all joints. No bony deformities or tenderness. UPPER EXTREMITIES: 2+ radial pulses b/l, warm, well-perfused. No cyanosis. Left upper extremity AVF noted. LOWER EXTREMITIES: 2+ dorsalis pedis pulses. B/L calf tenderness (patient states this is not new finding), nonpitting edema of b/l lower extremeties. NEUROLOGICAL: Cranial nerves II-XII intact. Normal speech. Normal gait. PSYCHIATRIC: Cooperative. Appropriate mood and affect upon my encounter today. SKIN: Warm, dry, Laboratory Results - last 24 hr 01/14/18 01/14/18 01/15/18 16:32 22:39 06:35 WBC 4.6 RBC 3.40 L Hgb 9.1 L Hct 28.8 L MCV 84.6 MCH 26.7 MCHC 31.6 L RDW 18.4 H Plt Count 160 MPV 9.3 Sodium Potassium Chloride Carbon Dioxide Anion Gap BUN Creatinine Creat Clearance w eGFR POC Glucometer 194 320 Random Glucose Calcium Phosphorus Magnesium Total Bilirubin AST ALT Alkaline Phosphatase Total Protein Albumin 01/15/18 01/15/18 06:35 11:23 WBC RBC Hgb Hct MCV MCH MCHC RDW Plt Count MPV Sodium 142 Potassium 3.9 Chloride 104 Carbon Dioxide 30 Anion Gap 7 L BUN 18 Creatinine 3.3 H Creat Clearance w eGFR 14.62 POC Glucometer 201 Random Glucose 186 H Calcium 8.5 Phosphorus 3.6 Magnesium 1.9 Total Bilirubin 0.3 AST 25 ALT 24 Alkaline Phosphatase 243 H Total Protein 5.3 L Albumin 2.2 L Active Medications Generic Name Dose Route Start Last Admin Trade Name Freq PRN Reason Stop Dose Admin Aspirin 81 mg 01/12/18 12:15 01/15/18 11:05 Ecotrin - PO 81 mg DAILY [facility] Administration Carvedilol 6.25 mg 01/10/18 10:00 01/15/18 11:06 Coreg - PO 6.25 mg BID [facility] Administration Glipizide 2.5 mg 01/15/18 07:00 01/15/18 06:02 Glucotrol - PO 2.5 mg DAILY@0700 [facility] Administration Heparin Sodium (Porcine) 5,000 unit 01/09/18 22:00 01/15/18 13:23 Heparin - SQ Not Given TID [facility] Insulin Aspart 1 vial 01/10/18 07:00 01/15/18 12:10 Novolog Vial Sliding Scale - SQ Not Given ACHS [facility] Protocol Losartan Potassium 100 mg 01/15/18 07:33 01/15/18 11:06 Cozaar - PO 100 mg DAILY [facility] Administration Nicotine 21 mg 01/10/18 16:30 01/15/18 11:05 Nicoderm Patch - TD 21 mg DAILY [facility] Administration Pantoprazole Sodium 40 mg 01/10/18 10:00 01/15/18 11:05 Protonix - PO 40 mg DAILY [facility] Administration ASSESSMENT/PLAN: Patient is a 52 year old female history of ESRD (HD Fri, ) hypertension, CAD, diabetes mellitus, presents with complaint of chest pain and abdominal pain. Chest pain -May be due to volume overload secondary to missed hemodialysis. -Cardiac echo: LV normal in size, global hypokinesis left ventricle. Systolic function severely reduced EF 25-30%. Mitral inflow restrictive physiology. -Nuclear stress test: Overall negative pharmacologic nuclear stress test. Small apical fixed defect (small tissue attenuation). Severely reduced left ventricular EF 22% -Cardiology consult (Dr. Crane) appreciated. Abdominal pain -Unclear etiology. Potentially uremic gastritis -CT abdomen, pelvis without contrast noted distended inferior vena cava (likely secondary to cardiac dysfunction), hepatic surface irregularity, likely cirrhosis with mild heptomegaly and splenomegaly. She is s/p cholecsytectomy. Prominent retroperitoneal lymph nodes to be followed up with future CT scan outpatient. -Protonix 40mg PO daily -GI consult (Dr. Gonzalez, [facility]) appreciated: Will advance diet (small portions) as tolerated. -MRCP shows no choledocholithiasis, or pancreaticobiliary ductal dilation. Enlarged right hepatic lobe noted at 22.5cm length. Atrophic kidneys b/l. Peritoneal lymph nodes will need outpatient follow up. -Alkaline phosphatase trending down. GGT 52. No transaminitis. Uncertain etiology. ESRD Patient had last HD 01/14/2018. 2.5kg fluid weight removed. -Nephrology consult (Dr. Banuelos) appreciated. HTN -Reinstate home dosage Carvedilol 6.25mg daily -Losartan 100mg PO daily CAD -Aspirin 81mg PO daily DM -ISS ACHS -BGM ACHS -Begin Glipizide 2.5mg PO daily -HbA1c 8.4% FEN -No IV fluids -Follow CMP -Diabetic, salt controlled diet Prophylaxis -Heparin 5000usubq TID -Pantoprazole 40mg PO daily Disposition -Continue care in medical-surgical floor. Patient is pending medical insurance for outpatient hemodialysis. Visit type - Emergency Visit Emergency Visit: Yes ED Registration Date: 01/09/18 Care time: The patient presented to the Emergency Department on the above date and was hospitalized for further evaluation of their emergent condition. - New Patient This patient is new to me today: No - Critical Care Critical Care patient: No - Discharge Referral Referred to [facility] Med P.C.: No
--- NOTE | 2018-01-15 19:10 | PN ---
Progress Note (short form) - Note Progress Note: Renal follow up for ESRD on HD Pt seen and examined at the bedside wants to go home no sob, cp, abd pain, N/V/D s/p dialysis yesterday Vital Signs Temperature 98.0 F 01/15/18 14:49 Pulse Rate 97 H 01/15/18 14:49 Respiratory Rate 20 01/15/18 11:46 Blood Pressure 141/55 L 01/15/18 14:49 O2 Sat by Pulse Oximetry (%) 98 01/15/18 09:00 Intake & Output 01/12/18 01/13/18 01/14/18 01/15/18 23:59 23:59 23:59 23:59 Intake Total 850 600 500 120 Balance 850 600 500 120 Weight 57.606 kg 57.425 kg 58.876 kg 56.336 kg NAD, appears uncomfortable Neck supple no JVD, MMM RRR, no M/R CTA, dec bs at lung bases soft NT/ND trace LE edema, no clubbing or cyanosis Left arm AVF CBC, BMP 01/15/18 06:35 01/15/18 06:35 Current Medications Aspirin (Ecotrin -) 81 mg PO DAILY [facility] Last Admin: 01/15/18 11:05 Dose: 81 mg Carvedilol (Coreg -) 6.25 mg PO BID [facility] Last Admin: 01/15/18 11:06 Dose: 6.25 mg Glipizide (Glucotrol -) 2.5 mg PO DAILY@0700 [facility] Last Admin: 01/15/18 06:02 Dose: 2.5 mg Heparin Sodium (Porcine) (Heparin -) 5,000 unit SQ TID [facility] Last Admin: 01/15/18 13:23 Dose: Not Given Insulin Aspart (Novolog Vial Sliding Scale -) 1 vial SQ ACHS [facility]; Protocol Last Admin: 01/15/18 17:23 Dose: Not Given Losartan Potassium (Cozaar -) 100 mg PO DAILY [facility] Last Admin: 01/15/18 11:06 Dose: 100 mg Nicotine (Nicoderm Patch -) 21 mg TD DAILY [facility] Last Admin: 01/15/18 11:05 Dose: 21 mg Pantoprazole Sodium (Protonix -) 40 mg PO DAILY [facility] Last Admin: 01/15/18 11:05 Dose: 40 mg 52 year old woman with history of ESRD on HD (x 7 months), Hypertension, CAD, DM who presented with complaints of abd pain and weakness. #ESRD on HD with missed treatment #Abd pain #Hypertension #Anemia #Hypertension #DM no indication for POLYTECHNIC REGISTRAR today next HD tomorrow if pt is going to levae JANNAA would not continue Losartan as it could potentiate hyperkalemia renal diet Joshua Banuelos DO
[2018-01-16] MEDS: HEPARIN NA (PORCINE) 5,000 UNITS/ML 1ML VIAL SQ SCH ×2 (06:42→13:05)
[2018-01-16] MEDS: INSULIN SLIDING SCALE (NOVOLOG) 1 VIAL SQ SCH ×2 (06:42→13:12)
[2018-01-16] MEDS: glipiZIDE 5 MG TABLET (FP) PO SCH (06:42)
[2018-01-16] MEDS ORDERED: EPOETIN ALFA 20,000 UNIT/1 ML VIAL IVPUSH ONE (09:15)
[2018-01-16] MEDS ORDERED: SODIUM CHLORIDE 250 ML IV PRN (09:25)
[2018-01-16 09:36] LABS: ANION GAP 9 MMOL/L (8-16); BLOOD UREA NITROGEN 24 mg/dL (7-18); CALCIUM 8.1 mg/dL (8.5-10.1); CHLORIDE 105 mmol/L (98-107); CO2 28 mmol/L (21-32); CREATININE 3.4 mg/dL (0.55-1.3); GLUCOSE,RANDOM 210 mg/dL (74-106); POTASSIUM 3.5 mmol/L (3.5-5.1); SODIUM 142 mmol/L (136-145)
[2018-01-16 09:37] VITALS: TEMP 98.2
[2018-01-16] MEDS ORDERED: ISOSORBIDE MONONITRATE 30 MG TAB.SR.24H (FP) PO SCH (12:45)
--- NOTE | 2018-01-16 12:48 | PN ---
Teaching Attending Note Name of Resident: Vincent Camara ATTENDING PHYSICIAN STATEMENT I saw and evaluated the patient. I reviewed the resident's note and discussed the case with the resident. I agree with the resident's findings and plan as documented with exceptions below. SUBJECTIVE: Patient seen and examined. no complaints. Getting HD. OBJECTIVE: Vital Signs Period Temp Pulse Resp BP Sys/Shields Pulse Ox Last 24 Hr 97.8 F-98.8 F 68-97 -18 141-173/55-87 98 Intake & Output 01/13/18 01/14/18 01/15/18 01/16/18 23:59 23:59 23:59 23:59 Intake Total 600 500 730 Balance 600 500 730 Weight 126 lb 9.6 oz 129 lb 12.8 oz 124 lb 3.2 oz 127 lb General: Sitting in bed in no acute distress chest: CTAB, no rales or wheezing Abdomen:Soft, NT, ND, positive bowel sounds Extremities: no edema Active Medications Aspirin (Ecotrin -) 81 mg PO DAILY [facility] Last Admin: 01/15/18 11:05 Dose: 81 mg Carvedilol (Coreg -) 6.25 mg PO BID [facility] Last Admin: 01/15/18 21:29 Dose: 6.25 mg Glipizide (Glucotrol -) 2.5 mg PO DAILY@0700 [facility] Last Admin: 01/16/18 06:42 Dose: Not Given Heparin Sodium (Porcine) (Heparin -) 5,000 unit SQ TID [facility] Last Admin: 01/16/18 06:42 Dose: Not Given Insulin Aspart (Novolog Vial Sliding Scale -) 1 vial SQ ACHS [facility]; Protocol Last Admin: 01/16/18 06:42 Dose: Not Given Isosorbide Mononitrate (Imdur -) 30 mg PO DAILY [facility] Nicotine (Nicoderm Patch -) 21 mg TD DAILY [facility] Last Admin: 01/15/18 11:05 Dose: 21 mg Pantoprazole Sodium (Protonix -) 40 mg PO DAILY [facility] Last Admin: 01/15/18 11:05 Dose: 40 mg Laboratory Results - last 24 hr 01/15/18 01/15/18 01/16/18 17:22 21:28 06:09 Sodium Potassium Chloride Carbon Dioxide Anion Gap BUN Creatinine Creat Clearance w eGFR POC Glucometer 192 311 169 Random Glucose Calcium 01/16/18 08:20 Sodium 142 Potassium 3.5 Chloride 105 Carbon Dioxide 28 Anion Gap 9 BUN 24 H Creatinine 3.4 H Creat Clearance w eGFR 14.13 POC Glucometer Random Glucose 210 H Calcium 8.1 L ASSESSMENT AND PLAN: 52 yof with PMhx of ESRD (HD Mon, ) hypertension, CAD, diabetes mellitus admitted with chest/abdominal pain, found with acute on chronic systolic heart failure exacerbation from missing her HD. -Chest pain -Acute on chronic systolic heart failure exacerbation -Cardiomyopathy, likely ischemia -ESRD on HD -CAD -NIDDM, A1c 8.4 -Elevated Alk phos Plan: ACS ruled out, no events on telemetry. 2D echo/stress test noted. Cardiology input noted. Continue ASA/coreg. Patient planning to leave AMA and go to [place]. Would avoid losartan/glipizide in that case given high risk of hyperkalemia/ hypoglycemic in unmonitored setting. Stressed the need for home BP and blood glucose monitoring and ongoing need for HD and risks of respiratory failure, and in the absence to do so. Resume home isosorbide mononitrate. Salt/fluid restriction, strict I/os, daily weights. MRCP noted, outpatient follow up. DVTPPX with heparin Transfer to med surg. D/c home when clinically improved and disposition arranged, social work addressing outpatient HD arrangements.
[2018-01-16 13:00] VITALS: BP 180/68; PULSE 62
[2018-01-16] MEDS: CARVEDILOL 6.25 MG TABLET (FP) PO SCH (13:12)
[2018-01-16] MEDS: PANTOPRAZOLE 40 MG TABLET (FP) PO SCH (13:12)
[2018-01-16] MEDS: NICOTINE 21 MG/24 HOURS TOPICAL PATCH TD SCH (13:12)
[2018-01-16] MEDS: ASPIRIN COATED 81 MG TABLET.EC PO SCH (13:12)
--- NOTE | 2018-01-16 13:17 | PN ---
Progress Note (short form) - Note Progress Note: Renal follow up for ESRD on HD Pt seen and examined during dialysis no acute complaints no sob, cp, abd pain BP stable, UF goal is 2L Vital Signs Temperature 98.2 F 01/16/18 08:25 Pulse Rate 62 01/16/18 13:00 Respiratory Rate 18 01/16/18 13:00 Blood Pressure 180/68 H 01/16/18 13:00 O2 Sat by Pulse Oximetry (%) 98 01/16/18 08:00 NAD awake and alert RRR CTA no LE edema CBC, BMP 01/15/18 06:35 01/16/18 08:20 Current Medications Aspirin (Ecotrin -) 81 mg PO DAILY [facility] Last Admin: 01/16/18 13:12 Dose: 81 mg Carvedilol (Coreg -) 6.25 mg PO BID [facility] Last Admin: 01/16/18 13:12 Dose: 6.25 mg Glipizide (Glucotrol -) 2.5 mg PO DAILY@0700 [facility] Last Admin: 01/16/18 06:42 Dose: Not Given Heparin Sodium (Porcine) (Heparin -) 5,000 unit SQ TID [facility] Last Admin: 01/16/18 13:05 Dose: Not Given Insulin Aspart (Novolog Vial Sliding Scale -) 1 vial SQ ACHS [facility]; Protocol Last Admin: 01/16/18 13:12 Dose: Not Given Isosorbide Mononitrate (Imdur -) 30 mg PO DAILY [facility] Nicotine (Nicoderm Patch -) 21 mg TD DAILY [facility] Last Admin: 01/16/18 13:12 Dose: 21 mg Pantoprazole Sodium (Protonix -) 40 mg PO DAILY [facility] Last Admin: 01/16/18 13:12 Dose: 40 mg 52 year old woman with history of ESRD on HD (x 7 months), Hypertension, CAD, DM who presented with complaints of abd pain and weakness. #ESRD on HD with missed treatment #Abd pain #Hypertension #Anemia #Hypertension #DM tolerating Hd well UF as tolerated getting EMMA with HD Joshua Banuelos DO
--- NOTE | 2018-01-16 14:35 | DS ---
Physical Exam: SUBJECTIVE: Patient seen and examined at bedside. Denies any acute complaints. Her last hemodialysis was today. Patient insists on going home today. OBJECTIVE: Vital Signs Period Temp Pulse Resp BP Sys/Shields Pulse Ox Last 24 Hr 97.8 F-98.8 F 60-97 18-18 141-183/55-87 98-98 PHYSICAL EXAM GENERAL: Awake, alert, and fully oriented, in no acute distress. HEAD: Normal with no signs of trauma. EYES: Pupils equal, round and reactive to light, extraocular movements intact without nystagmus b/l, sclera anicteric, conjunctiva clear. EARS, NOSE, THROAT: Oropharynx clear without exudates. Moist mucous membranes. NECK: Normal range of motion, supple without lymphadenopathy, JVD. LUNGS: Breath sounds equal, clear to auscultation bilaterally. No wheezes, and no crackles. No accessory muscle use. HEART: Regular rate and rhythm, normal S1 and S2 with diastolic decrescendo murmur. ABDOMEN: Soft, nontender to palpation, not distended. Normoactive bowel sounds X4 quadrants. No guarding, no rebound tendernes. No hepatomegaly or splenomegaly appreciated. MUSCULOSKELETAL: Normal range of motion at all joints. No bony deformities or tenderness. UPPER EXTREMITIES: 2+ radial pulses b/l, warm, well-perfused. No cyanosis. Left upper extremity AVF noted. LOWER EXTREMITIES: 2+ dorsalis pedis pulses. Trace nonpitting edema of b/l lower extremeties. NEUROLOGICAL: Cranial nerves II-XII intact. Normal speech. Normal gait. PSYCHIATRIC: Appropriate mood and affect upon my encounter today. SKIN: Warm, dry. LABS Laboratory Results - last 24 hr 01/15/18 01/15/18 01/16/18 17:22 21:28 06:09 Sodium Potassium Chloride Carbon Dioxide Anion Gap BUN Creatinine Creat Clearance w eGFR POC Glucometer 192 311 169 Random Glucose Calcium 01/16/18 08:20 Sodium 142 Potassium 3.5 Chloride 105 Carbon Dioxide 28 Anion Gap 9 BUN 24 H Creatinine 3.4 H Creat Clearance w eGFR 14.13 POC Glucometer Random Glucose 210 H Calcium 8.1 L HOSPITAL COURSE: Date of Admission:01/09/18 Date of Discharge: 01/16/18 Patient is a 52 year old female recently arrived from [facility], with history of ESRD (HD Fri, ) hypertension, CAD, diabetes mellitus, presented with complaint of chest pain and abdominal pain. Cardiology consult discussed chest pain may be due to volume overload secondary to missed hemodialysis. Troponins remained at 0.08 X3. Cardiac echo showed LV normal in size, global hypokinesis left ventricle. Systolic function severely reduced EF 25-30%. Mitral inflow restrictive physiology. Nuclear stress test showed small apical fixed defect ( small tissue attenuation). Severely reduced left ventricular EF 22%. Abdominal pain was unclear in etiology, likely uremic gastritis. CT abdomen, pelvis without contrast noted distended inferior vena cava (likely secondary to cardiac dysfunction), hepatic surface irregularity, likely cirrhosis with mild heptomegaly and splenomegaly. MRCP showed no choledocholithiasis, or pancreaticobiliary ductal dilation. Enlarged right hepatic lobe noted at 22.5cm length. Patient underwent 4 rounds of hemodialysis and symptoms significantly improved. Patient insisted on leaving to [place] to be with her family. She chose to leave against medical advice. Discussed risks of leaving with park interpreter ([id number]), included missing further dialysis treatments, worsening of symptoms, lightheadedness, fall, loss of consciousness, trauma, . Discussed importance of her following up with primary care physician as well as collating machine operator for her dialysis in [place]. Patient demonstrated understanding, and persisted insistence on leaving the hospital. Minutes to complete discharge: 37 Discharge Summary Reason For Visit: MISSED DIALYSIS,ELEVATED TROPONIN I LEVEL Condition: Stable - Instructions Diet, Activity, Other Instructions: Hospital course: You were admitted for chest and abdominal pain. You had dialysis on January 09, 2018, January 12, 2019 and January 14 2018. You will follow up with collating machine operator Dr. Banuelos for dialysis on December. You had an echocardiogram that showed poor function of your heart and but normal stress test during the hospitalization, and you will follow up with supervisor winding department Dr. Crane within one week of discharge. Medications: Continue taking your home medications as directed. Your Carvedilol has been increased to twice a day (one tablet every 12 hours). We have also added Glipizide 2.5mg daily for your diabetes. Recommend home blood glucose monitoring. Check before meals and at bedtime and maintain a diary. Notify your doctor if < 75 or persistently > 200 noted. Please note that the medication can cause low blood sugar and permanent brain damage. So it is very important that your monitor your blood sugars closely. Low blood sugar education and interventions have been advised to you. Advise daily weights and notify your doctor if weight gain > 3 lbs in 2 days. Follow up referrals: You will follow up with your primary care provider. A referral has been made with Dr. Robb if you would like to continue follow up with [facility]. You will require a repeat CAT scan of your abdomen/pelvis in 3 months to assess retroperitoneal lymphadenopathy. You will discuss this with your primary care physician. Follow up with supervisor winding department Dr. Crane within one week of discharge You will follow up with Dr. Gonzalez for the abdominal pain within one week of discharge. Return to the nearest emergency department if you experience fevers, chills, shortness of breath, chest pain, palpitations, abdominal pain, vomiting, diarrhea, worsening of symptoms. Referrals: Demian Robb MD [Staff Physician] - 1 Week Princess Gonzalez DO [Staff Physician] - 1 Week Kasi Crane MD [Staff Physician] - 1 Week Joshua Banuelos MD [Staff Physician] - 01/15/18 Disposition: AGAINST MEDICAL ADVICE - Home Medications Comprehensive Discharge Medication List: Ambulatory Orders Calcium Carbonate/Vitamin D3 [Calcium 500-Vit D3 400 Tablet] 1 each PO DAILY 03/17 Esomeprazole Magnesium 40 mg PO ASDIR 01/09/18 Folic Acid 5 mg PO DAILY 01/09/18 Isosorbide Mononitrate [Monoket -] 20 mg PO ASDIR 01/09/18 Aspirin Coated [Ecotrin -] 81 mg PO DAILY tablet.ec 01/13/18 Carvedilol [Coreg -] 6.25 mg PO BID tablet 01/13/18 This patient is new to me today: No Emergency Visit: Yes ED Registration Date: 01/09/18 Care time: The patient presented to the Emergency Department on the above date and was hospitalized for further evaluation of their emergent condition. Critical Care patient: No - Discharge Referral Referred to [facility] No
== END 2018-01-16 13:56 | disposition left against medical advice (07) | DRG 194 ==
LOC: JER 17:49 → JERBED 19:47 → J4W 01-10 05:16
PROVIDERS: ADMIT Internal Medicine; ATTEND Hospitalist
PROC: 5A1D70Z Performance of Urinary Filtration, Intermittent, Less than 6 Hours Per Day (ICD-10-PCS; principal; 2018-01-10)
DX: I13.2 Hypertensive heart and chronic kidney disease with heart failure and with stage 5 chronic kidney disease, or end stage renal disease (principal); I50.23 Acute on chronic systolic (congestive) heart failure; E11.22 Type 2 diabetes mellitus with diabetic chronic kidney disease; N18.6 End stage renal disease; I27.20 Pulmonary hypertension, unspecified; E88.09 Other disorders of plasma-protein metabolism, not elsewhere classified; I36.1 Nonrheumatic tricuspid (valve) insufficiency; I15.9 Secondary hypertension, unspecified; I25.5 Ischemic cardiomyopathy; I34.0 Nonrheumatic mitral (valve) insufficiency; Z99.2 Dependence on renal dialysis; Z79.4 Long term (current) use of insulin; K29.60 Other gastritis without bleeding; D63.1 Anemia in chronic kidney disease; I25.10 Atherosclerotic heart disease of native coronary artery without angina pectoris; Z82.49 Family history of ischemic heart disease and other diseases of the circulatory system; R59.0 Localized enlarged lymph nodes; F17.210 Nicotine dependence, cigarettes, uncomplicated
CPT/HCPCS: 36415; 71045-TC-FY; 71250-TC; 72192-TC; 74150-TC; 74181-TC; 78452-TC; 80048; 80053; 82550; 82728; 82962; 82977; 83036; 83540; 83550; 83735; 84100; 84466; 84484; 85025; 85027; 85044; 85610; 86704; 86706; 86708; 86803; 87340; 93005; 93010; 93017; 93306-TC; 93970-TC; 99284-25; A9502; J0885; J1644; J2785

== ENCOUNTER 2020-02-17 18:02 | Inpatient (IN) | payer OTHER ==
[2020-02-17 20:50] LABS: BASO % 0.4 % (0-2.0); EOS % 1.6 % (0-4.5); HEMATOCRIT 31.3 % (32.4-45.2); HEMOGLOBIN 10.3 GM/dL (10.7-15.3); LYMPH % 11.5 % (8-40); MCH 30.9 pg (25.7-33.7); MEAN CELL VOLUME 93.5 fl (80-96); MEAN PLT VOLUME 8.4 fl (7.5-11.1); MONO % 8.7 % (3.8-10.2); NEUT % 77.8 % (42.8-82.8); PLATELET COUNT 182 K/MM3 (134-434); RBC 3.35 M/mm3 (3.60-5.2); RDW 15.8 % (11.6-15.6); WHITE BLOOD COUNT 6.8 K/mm3 (4.0-10.0)
[2020-02-17 20:57] LABS: INR 1.05 (0.83-1.09); PROTHROMBIN TIME (PATIENT) 12.9 SEC (9.7-13.0)
[2020-02-17 21:00] LABS: ACTIVATED PTT 33.2 SECONDS (25.2-36.5)
[2020-02-17 21:17] LABS: CHLORIDE 107 mmol/L (98-107); POTASSIUM 5.1 mmol/L (3.5-5.1); SODIUM 141 mmol/L (136-145)
[2020-02-17 21:20] LABS: ALBUMIN 3.4 g/dl (3.4-5.0); ANION GAP 12 MMOL/L (8-16); BLOOD UREA NITROGEN 71.7 mg/dL (7-18); CO2 22 mmol/L (21-32); GLUCOSE,RANDOM 129 mg/dL (74-106); LIPASE 133 U/L (73-393); MAGNESIUM 2.8 mg/dL (1.8-2.4)
[2020-02-17 21:22] LABS: SGOT/AST 20 U/L (15-37); SGPT/ALT 21 U/L (13-61)
[2020-02-17 21:23] LABS: BILIRUBIN,TOTAL 0.7 mg/dL (0.2-1); TOT PROT 6.5 g/dl (6.4-8.2)
[2020-02-17 21:24] LABS: ALK PHOS 126 U/L (45-117)
[2020-02-17 21:44] LABS: CREATININE 8.7 mg/dL (0.55-1.3)
[2020-02-17] MEDS ORDERED: SODIUM CHLORIDE 250 ML IV PRN (22:06)
[2020-02-18] MEDS ORDERED: LABETALOL HCL 100 MG TABLET (FP) PO ONE (04:48)
[2020-02-18] MEDS ORDERED: LABETALOL HCL 100 MG TABLET (FP) ONE ×2 (06:12→09:48)
[2020-02-18] MEDS: HEPARIN NA (PORCINE) 5,000 UNITS/ML 1ML VIAL SQ SCH ×3 (06:17→21:48)
[2020-02-18] MEDS: INSULIN SLIDING SCALE (NOVOLOG) 1 VIAL SQ SCH ×4 (08:27→21:48)
[2020-02-18] MEDS ORDERED: ASPIRIN COATED 81 MG TABLET.EC ONE (09:47)
[2020-02-18] MEDS ORDERED: amLODIPine BESYLATE 5 MG TABLET (FP) ONE (09:48)
[2020-02-18] MEDS: ASPIRIN COATED 81 MG TABLET.EC PO SCH (09:55)
[2020-02-18] MEDS: amLODIPine BESYLATE 10 MG TABLET (FP) PO SCH (09:55)
[2020-02-18] MEDS: LABETALOL HCL 100 MG TABLET (FP) PO SCH ×2 (09:55→21:47)
[2020-02-18] MEDS: LISINOPRIL 10 MG TABLET PO SCH (09:55)
[2020-02-18] MEDS ORDERED: HYDROCHLOROTHIAZIDE 12.5 MG CAPSULE (FP) PO SCH (10:00)
[2020-02-18] MEDS ORDERED: HEPARIN NA (PORCINE) 5,000 UNITS/ML 1ML VIAL ONE (13:49)
[2020-02-18] MEDS ORDERED: INSULIN (NOVOLOG) ASPART 100 UNITS/ML 10ML VIAL ONE (21:44)
[2020-02-18] MEDS: ATORVASTATIN CA 40 MG TABLET (FP) PO SCH (21:48)
[2020-02-18] MEDS ORDERED: ACETAMINOPHEN 325 MG TABLET (FP) PO ONE (22:14)
[2020-02-19] MEDS ORDERED: LABETALOL HCL 100 MG TABLET (FP) PO ONE (04:45)
[2020-02-19] MEDS: INSULIN SLIDING SCALE (NOVOLOG) 1 VIAL SQ SCH ×4 (06:54→21:35)
[2020-02-19] MEDS ORDERED: cloNIDine HCL 0.1 MG TABLET PO ONE (08:55)
[2020-02-19] MEDS: ASPIRIN COATED 81 MG TABLET.EC PO SCH (09:30)
[2020-02-19] MEDS: LISINOPRIL 10 MG TABLET PO SCH (09:31)
[2020-02-19] MEDS: LABETALOL HCL 100 MG TABLET (FP) PO SCH ×2 (09:31→21:37)
[2020-02-19] MEDS: amLODIPine BESYLATE 10 MG TABLET (FP) PO SCH (09:31)
[2020-02-19] MEDS: HEPARIN NA (PORCINE) 5,000 UNITS/ML 1ML VIAL SQ SCH ×2 (09:32→21:37)
[2020-02-19] MEDS ORDERED: cloNIDine HCL 0.1 MG TABLET PO SCH (10:00)
[2020-02-19 10:51] LABS: BASO % 0.6 % (0-2.0); EOS % 1.8 % (0-4.5); HEMATOCRIT 28.9 % (32.4-45.2); HEMOGLOBIN 9.7 GM/dL (10.7-15.3); LYMPH % 13.8 % (8-40); MCH 31.3 pg (25.7-33.7); MCHC 33.6 g/dl (32.0-36.0); MEAN PLT VOLUME 7.7 fl (7.5-11.1); MONO % 9.1 % (3.8-10.2); NEUT % 74.7 % (42.8-82.8); PLATELET COUNT 165 K/MM3 (134-434); RBC 3.11 M/mm3 (3.60-5.2); RDW 15.4 % (11.6-15.6); WHITE BLOOD COUNT 4.4 K/mm3 (4.0-10.0)
[2020-02-19 12:01] LABS: POTASSIUM 4.1 mmol/L (3.5-5.1)
[2020-02-19 12:04] LABS: ALBUMIN 3.1 g/dl (3.4-5.0)
[2020-02-19 12:08] LABS: CREATININE 4.7 mg/dL (0.55-1.3); PHOSPHOROUS 6.6 mg/dL (2.5-4.9)
[2020-02-19 12:09] LABS: BILIRUBIN,TOTAL 0.9 mg/dL (0.2-1)
[2020-02-19 12:14] LABS: BLOOD UREA NITROGEN 27.8 mg/dL (7-18)
[2020-02-19] MEDS: CALCIUM ACETATE 667 MG CAPSULE (FP) PO SCH (18:56)
[2020-02-19] MEDS: cloNIDine HCL 0.1 MG TABLET PO SCH (21:37)
[2020-02-19] MEDS: ATORVASTATIN CA 40 MG TABLET (FP) PO SCH (21:37)
[2020-02-19] MEDS ORDERED: ACETAMINOPHEN 325 MG TABLET (FP) PO ONE (21:51)
[2020-02-20] MEDS ORDERED: amLODIPine BESYLATE 10 MG TABLET (FP) PO ONE (05:06)
[2020-02-20] MEDS: LABETALOL HCL 100 MG TABLET (FP) PO SCH ×2 (09:37→21:57)
[2020-02-20] MEDS: ASPIRIN COATED 81 MG TABLET.EC PO SCH (09:38)
[2020-02-20] MEDS: HEPARIN NA (PORCINE) 5,000 UNITS/ML 1ML VIAL SQ SCH ×2 (09:38→21:57)
[2020-02-20] MEDS: cloNIDine HCL 0.1 MG TABLET PO SCH ×2 (09:38→21:57)
[2020-02-20] MEDS: CALCIUM ACETATE 667 MG CAPSULE (FP) PO SCH (09:38)
[2020-02-20] MEDS: LISINOPRIL 10 MG TABLET PO SCH (09:46)
[2020-02-20] MEDS: ATORVASTATIN CA 40 MG TABLET (FP) PO SCH (21:57)
[2020-02-21] MEDS ORDERED: amLODIPine BESYLATE 10 MG TABLET (FP) PO ONE (05:08)
[2020-02-21] MEDS ORDERED: SODIUM CHLORIDE 250 ML IV PRN (10:31)
[2020-02-21 11:24] LABS: HEMATOCRIT 27.8 % (32.4-45.2); HEMOGLOBIN 9.2 GM/dL (10.7-15.3); MCH 30.8 pg (25.7-33.7); MEAN CELL VOLUME 93.4 fl (80-96); MEAN PLT VOLUME 8.3 fl (7.5-11.1); PLATELET COUNT 151 K/MM3 (134-434); RBC 2.98 M/mm3 (3.60-5.2); RDW 14.7 % (11.6-15.6); WHITE BLOOD COUNT 5.1 K/mm3 (4.0-10.0)
[2020-02-21] MEDS: cloNIDine HCL 0.1 MG TABLET PO SCH ×3 (11:24→21:50)
[2020-02-21] MEDS: ASPIRIN COATED 81 MG TABLET.EC PO SCH ×2 (11:25→13:11)
[2020-02-21] MEDS: HEPARIN NA (PORCINE) 5,000 UNITS/ML 1ML VIAL SQ SCH ×3 (11:27→21:51)
[2020-02-21] MEDS: LISINOPRIL 10 MG TABLET PO SCH ×2 (11:28→13:11)
[2020-02-21] MEDS: EPOETIN ALFA-EPBX 2,000 UNIT/ML VIAL SQ ONE ×3 (11:28→13:08)
[2020-02-21] MEDS: LABETALOL HCL 100 MG TABLET (FP) PO SCH ×3 (11:28→21:50)
[2020-02-21 11:46] LABS: POTASSIUM 4.4 mmol/L (3.5-5.1)
[2020-02-21 11:49] LABS: CALCIUM 8.6 mg/dL (8.5-10.1)
[2020-02-21 11:56] LABS: BLOOD UREA NITROGEN 59.2 mg/dL (7-18)
[2020-02-21 12:00] LABS: CREATININE 8.1 mg/dL (0.55-1.3)
[2020-02-21] MEDS: ATORVASTATIN CA 40 MG TABLET (FP) PO SCH (21:50)
[2020-02-22] MEDS: cloNIDine HCL 0.1 MG TABLET PO SCH ×2 (10:26→21:43)
[2020-02-22] MEDS: amLODIPine BESYLATE 10 MG TABLET (FP) PO SCH (10:26)
[2020-02-22] MEDS: ASPIRIN COATED 81 MG TABLET.EC PO SCH (10:26)
[2020-02-22] MEDS: LABETALOL HCL 100 MG TABLET (FP) PO SCH ×2 (10:27→21:43)
[2020-02-22] MEDS: LISINOPRIL 20 MG TABLET PO SCH (10:27)
[2020-02-22] MEDS: HEPARIN NA (PORCINE) 5,000 UNITS/ML 1ML VIAL SQ SCH ×3 (10:40→22:11)
[2020-02-22] MEDS ORDERED: FUROSEMIDE 20 MG TABLET (FP) PO SCH (11:00)
[2020-02-22] MEDS: ATORVASTATIN CA 40 MG TABLET (FP) PO SCH (21:43)
[2020-02-23] MEDS ORDERED: SODIUM CHLORIDE 250 ML IV PRN (07:39)
[2020-02-23] MEDS: amLODIPine BESYLATE 10 MG TABLET (FP) PO SCH (13:07)
[2020-02-23] MEDS: cloNIDine HCL 0.1 MG TABLET PO SCH ×2 (13:08→21:25)
[2020-02-23] MEDS: LABETALOL HCL 100 MG TABLET (FP) PO SCH ×2 (13:08→21:26)
[2020-02-23] MEDS: LISINOPRIL 20 MG TABLET PO SCH (13:09)
[2020-02-23] MEDS: HEPARIN NA (PORCINE) 5,000 UNITS/ML 1ML VIAL SQ SCH ×2 (13:09→21:26)
[2020-02-23] MEDS: ASPIRIN COATED 81 MG TABLET.EC PO SCH (13:09)
[2020-02-23] MEDS ORDERED: FUROSEMIDE 40 MG TABLET (FP) PO ONE (13:33)
[2020-02-23] MEDS: ATORVASTATIN CA 40 MG TABLET (FP) PO SCH (21:26)
[2020-02-24] MEDS: LABETALOL HCL 100 MG TABLET (FP) PO SCH ×2 (09:18→21:28)
[2020-02-24] MEDS: amLODIPine BESYLATE 10 MG TABLET (FP) PO SCH (09:19)
[2020-02-24] MEDS: FUROSEMIDE 40 MG TABLET (FP) PO SCH (09:19)
[2020-02-24] MEDS: LISINOPRIL 20 MG TABLET PO SCH (09:19)
[2020-02-24] MEDS: HEPARIN NA (PORCINE) 5,000 UNITS/ML 1ML VIAL SQ SCH ×2 (09:19→21:28)
[2020-02-24] MEDS: ASPIRIN COATED 81 MG TABLET.EC PO SCH (09:19)
[2020-02-24] MEDS: cloNIDine HCL 0.1 MG TABLET PO SCH ×2 (09:19→21:28)
[2020-02-24] MEDS ORDERED: ACETAMINOPHEN 325 MG TABLET (FP) PO PRN (15:16)
[2020-02-24] MEDS ORDERED: SODIUM CHLORIDE 250 ML IV PRN (15:32)
[2020-02-24] MEDS: ATORVASTATIN CA 40 MG TABLET (FP) PO SCH (21:28)
[2020-02-25] MEDS: HEPARIN NA (PORCINE) 5,000 UNITS/ML 1ML VIAL IVPUSH ONE ×2 (08:25→14:55)
[2020-02-25 09:24] LABS: HEMATOCRIT 29.5 % (32.4-45.2); HEMOGLOBIN 9.9 GM/dL (10.7-15.3); MCHC 33.3 g/dl (32.0-36.0); MEAN PLT VOLUME 8.4 fl (7.5-11.1); PLATELET COUNT 169 K/MM3 (134-434); RBC 3.18 M/mm3 (3.60-5.2); RDW 13.6 % (11.6-15.6); WHITE BLOOD COUNT 6.4 K/mm3 (4.0-10.0)
[2020-02-25 09:42] LABS: POTASSIUM 4.2 mmol/L (3.5-5.1)
[2020-02-25 09:53] LABS: BLOOD UREA NITROGEN 48.3 mg/dL (7-18); CALCIUM 9.2 mg/dL (8.5-10.1)
[2020-02-25 09:56] LABS: CREATININE 6.2 mg/dL (0.55-1.3)
[2020-02-25] MEDS: EPOETIN ALFA-EPBX 4,000 UNIT/ML VIAL IVPUSH ONE ×2 (11:04→14:55)
[2020-02-25] MEDS: HEPARIN NA (PORCINE) 5,000 UNITS/ML 1ML VIAL SQ SCH (12:07)
[2020-02-25] MEDS: LABETALOL HCL 100 MG TABLET (FP) PO SCH ×2 (12:12→22:13)
[2020-02-25] MEDS: LISINOPRIL 20 MG TABLET PO SCH (12:12)
[2020-02-25] MEDS: ASPIRIN COATED 81 MG TABLET.EC PO SCH (12:13)
[2020-02-25] MEDS: cloNIDine HCL 0.1 MG TABLET PO SCH ×2 (12:13→22:14)
[2020-02-25] MEDS: FUROSEMIDE 40 MG TABLET (FP) PO SCH (12:14)
[2020-02-25] MEDS: amLODIPine BESYLATE 10 MG TABLET (FP) PO SCH (12:14)
[2020-02-25] MEDS ORDERED: NITROGLYCERIN 2% OINTMENT - 1GM PACKET TD PRN (15:07)
[2020-02-25] MEDS ORDERED: NITROGLYCERIN 0.1 MG/HOUR TD PATCH TD SCH (15:15)
[2020-02-25] MEDS: hydrALAZINE HCL 25 MG TABLET (FP) PO SCH ×2 (16:00→22:13)
[2020-02-25 16:05] VITALS: BMI 21.4
[2020-02-25] MEDS: INSULIN SLIDING SCALE (NOVOLOG) 1 VIAL SQ SCH (16:40)
[2020-02-25] MEDS ORDERED: INSULIN (NOVOLOG) ASPART 100 UNITS/ML 10ML VIAL ONE (21:59)
[2020-02-25] MEDS: ATORVASTATIN CA 40 MG TABLET (FP) PO SCH (22:14)
[2020-02-26] MEDS: INSULIN SLIDING SCALE (NOVOLOG) 1 VIAL SQ SCH ×5 (00:42→22:14)
[2020-02-26] MEDS: hydrALAZINE HCL 25 MG TABLET (FP) PO SCH ×3 (06:39→21:51)
[2020-02-26] MEDS: cloNIDine HCL 0.1 MG TABLET PO SCH ×2 (10:19→21:51)
[2020-02-26] MEDS: LISINOPRIL 20 MG TABLET PO SCH (10:19)
[2020-02-26] MEDS: FUROSEMIDE 40 MG TABLET (FP) PO SCH (10:19)
[2020-02-26] MEDS: ASPIRIN COATED 81 MG TABLET.EC PO SCH (10:19)
[2020-02-26] MEDS: amLODIPine BESYLATE 10 MG TABLET (FP) PO SCH (10:19)
[2020-02-26] MEDS: LABETALOL HCL 100 MG TABLET (FP) PO SCH ×2 (10:19→21:51)
[2020-02-26] MEDS ORDERED: INSULIN (NOVOLOG) ASPART 100 UNITS/ML 10ML VIAL ONE (21:24)
[2020-02-26] MEDS: ATORVASTATIN CA 40 MG TABLET (FP) PO SCH (21:52)
[2020-02-27] MEDS ORDERED: PT OWN MED DRAWER 7, Y5N ONE (01:26)
[2020-02-27] MEDS: hydrALAZINE HCL 25 MG TABLET (FP) PO SCH ×3 (06:18→21:59)
[2020-02-27] MEDS: INSULIN SLIDING SCALE (NOVOLOG) 1 VIAL SQ SCH ×4 (06:18→21:58)
[2020-02-27] MEDS: LISINOPRIL 20 MG TABLET PO SCH (09:42)
[2020-02-27] MEDS: cloNIDine HCL 0.1 MG TABLET PO SCH ×2 (09:42→21:59)
[2020-02-27] MEDS: amLODIPine BESYLATE 10 MG TABLET (FP) PO SCH (09:43)
[2020-02-27] MEDS: LABETALOL HCL 100 MG TABLET (FP) PO SCH ×2 (09:43→21:59)
[2020-02-27] MEDS: ASPIRIN COATED 81 MG TABLET.EC PO SCH (09:43)
[2020-02-27] MEDS: FUROSEMIDE 40 MG TABLET (FP) PO SCH (09:43)
[2020-02-27] MEDS: HEPARIN NA (PORCINE) 5,000 UNITS/ML 1ML VIAL SQ SCH ×2 (13:51→21:57)
[2020-02-27] MEDS: ATORVASTATIN CA 40 MG TABLET (FP) PO SCH (21:59)
[2020-02-28] MEDS: hydrALAZINE HCL 25 MG TABLET (FP) PO SCH ×2 (06:20→13:09)
[2020-02-28] MEDS: HEPARIN NA (PORCINE) 5,000 UNITS/ML 1ML VIAL SQ SCH ×2 (06:24→13:26)
[2020-02-28] MEDS: INSULIN SLIDING SCALE (NOVOLOG) 1 VIAL SQ SCH ×3 (06:27→17:44)
[2020-02-28] MEDS ORDERED: SODIUM CHLORIDE 250 ML IV PRN (07:47)
[2020-02-28 10:41] VITALS: TEMP 98.1
[2020-02-28 10:41] LABS: POTASSIUM 4.1 mmol/L (3.5-5.1)
[2020-02-28 10:45] LABS: BLOOD UREA NITROGEN 59.8 mg/dL (7-18)
[2020-02-28 10:48] LABS: CALCIUM 8.9 mg/dL (8.5-10.1); MAGNESIUM 2.1 mg/dL (1.8-2.4)
[2020-02-28 10:49] LABS: PHOSPHOROUS 8.4 mg/dL (2.5-4.9)
[2020-02-28 10:57] LABS: CREATININE 7.7 mg/dL (0.55-1.3)
[2020-02-28 12:37] VITALS: BP 161/84; PULSE 60
[2020-02-28] MEDS: LABETALOL HCL 100 MG TABLET (FP) PO SCH (13:08)
[2020-02-28] MEDS: FUROSEMIDE 40 MG TABLET (FP) PO SCH (13:09)
[2020-02-28] MEDS: ASPIRIN COATED 81 MG TABLET.EC PO SCH (13:09)
[2020-02-28] MEDS: LISINOPRIL 20 MG TABLET PO SCH (13:10)
[2020-02-28] MEDS: cloNIDine HCL 0.1 MG TABLET PO SCH (13:10)
[2020-02-28] MEDS: amLODIPine BESYLATE 10 MG TABLET (FP) PO SCH (13:10)
== END 2020-02-28 17:44 | disposition home or self-care (01) | DRG 470 ==
LOC: JER 18:02 → JERBED 22:12 → J6S 02-18 15:51
PROVIDERS: ADMIT Internal Medicine; ATTEND Student in an Organized Health Care Education/Training Program
PROC: 5A1D70Z Performance of Urinary Filtration, Intermittent, Less than 6 Hours Per Day (ICD-10-PCS; principal; 2020-02-28)
DX: I13.11 Hypertensive heart and chronic kidney disease without heart failure, with stage 5 chronic kidney disease, or end stage renal disease (principal); I69.391 Dysphagia following cerebral infarction; E78.5 Hyperlipidemia, unspecified; D63.1 Anemia in chronic kidney disease; N18.6 End stage renal disease; I42.9 Cardiomyopathy, unspecified; E11.22 Type 2 diabetes mellitus with diabetic chronic kidney disease; I69.354 Hemiplegia and hemiparesis following cerebral infarction affecting left non-dominant side; Z99.2 Dependence on renal dialysis; E11.65 Type 2 diabetes mellitus with hyperglycemia; Z91.14 Patient's other noncompliance with medication regimen; I25.10 Atherosclerotic heart disease of native coronary artery without angina pectoris
CPT/HCPCS: 36415; 71045-TC-FY; 80048; 80053; 80074; 82550; 82607; 82746; 82962; 83036; 83605; 83690; 83735; 84100; 84484; 85025; 85027; 85610; 85730; 93005; 93010; 97116-GP; 97161-GP; 99285-25; C9803; J0735; J1644; Q5106; U0003

== ENCOUNTER 2021-01-18 18:23 | Inpatient (IN) | payer OTHER ==
[2021-01-18 18:49] VITALS: BMI 23.0
[2021-01-18 20:21] LABS: BASO % 0.6 % (0-2.0); EOS % 1.6 % (0-4.5); HEMATOCRIT 30.3 % (32.4-45.2); HEMOGLOBIN 10.2 GM/dL (10.7-15.3); LYMPH % 16.1 % (8-40); MCH 29.3 pg (25.7-33.7); MCHC 33.5 g/dl (32.0-36.0); MEAN CELL VOLUME 87.3 fl (80-96); MEAN PLT VOLUME 8.2 fl (7.5-11.1); MONO % 7.6 % (3.8-10.2); NEUT % 74.1 % (42.8-82.8); PLATELET COUNT 124 10^3/uL (134-434); RBC 3.48 M/mm3 (3.60-5.2); RDW 15.1 % (11.6-15.6); WHITE BLOOD COUNT 4.9 K/mm3 (4.0-10.0)
[2021-01-18 20:52] LABS: INR 1.11 (0.83-1.09); PROTHROMBIN TIME (PATIENT) 12.4 SEC (9.7-13.0)
[2021-01-18 20:55] LABS: ACTIVATED PTT 31.1 SECONDS (25.2-36.5)
[2021-01-18 20:57] LABS: CHLORIDE 108 mmol/L (98-107); SODIUM 141 mmol/L (136-145)
[2021-01-18 21:01] LABS: ALBUMIN 3.2 g/dl (3.4-5.0); ANION GAP 11 MMOL/L (8-16); BLOOD UREA NITROGEN 28.8 mg/dL (7-18); CALCIUM 8.3 mg/dL (8.5-10.1); CO2 22 mmol/L (21-32); GLUCOSE,RANDOM 116 mg/dL (74-106); LIPASE 84 U/L (73-393)
[2021-01-18 21:03] LABS: SGOT/AST 21 U/L (15-37); SGPT/ALT 14 U/L (13-61)
[2021-01-18 21:04] LABS: CREATININE 5.1 mg/dL (0.55-1.3)
[2021-01-18 21:05] LABS: BILIRUBIN,TOTAL 0.4 mg/dL (0.2-1); TOT PROT 6.4 g/dl (6.4-8.2)
[2021-01-18 21:06] LABS: ALK PHOS 180 U/L (45-117)
[2021-01-18] MEDS ORDERED: hydrALAZINE HCL 50 MG TABLET (FP) PO ONE (23:49)
[2021-01-18] MEDS ORDERED: hydrALAZINE HCL 20 MG/ML VIAL IVPUSH ONE (23:53)
[2021-01-18] MEDS ORDERED: hydrALAZINE HCL 20 MG/ML VIAL ONE (23:57)
[2021-01-19] MEDS ORDERED: morphine CARPU-JECT 4 MG/1 ML DISP.SYRIN IVPUSH ONE (01:21)
[2021-01-19] MEDS ORDERED: morphine SULFATE 4 MG/ML VIAL ONE (01:21)
[2021-01-19] MEDS ORDERED: LABETALOL HCL 5 MG/1 ML (100MG/20 ML VIAL) IVPUSH ONE ×2 (04:10→05:50)
[2021-01-19] MEDS ORDERED: LABETALOL HCL 100 MG TABLET (FP) PO SCH ×4 (04:11→10:00)
[2021-01-19] MEDS ORDERED: LABETALOL HCL 5 MG/1 ML (100MG/20 ML VIAL) ONE (04:22)
[2021-01-19] MEDS ORDERED: LABETALOL HCL 100 MG TABLET (FP) PO ONE (05:52)
[2021-01-19] MEDS ORDERED: LABETALOL HCL 100 MG TABLET (FP) ONE (05:53)
[2021-01-19] MEDS: HEPARIN NA (PORCINE) 5,000 UNITS/ML 1ML VIAL SQ SCH ×2 (06:02→21:37)
[2021-01-19] MEDS ORDERED: hydrALAZINE HCL 50 MG TABLET (FP) PO ONE (06:36)
[2021-01-19] MEDS ORDERED: hydrALAZINE HCL 20 MG/ML VIAL ONE (06:41)
[2021-01-19 07:33] LABS: HEMATOCRIT 28.9 % (32.4-45.2); HEMOGLOBIN 9.8 GM/dL (10.7-15.3); MCH 29.6 pg (25.7-33.7); MEAN CELL VOLUME 87.1 fl (80-96); MEAN PLT VOLUME 8.1 fl (7.5-11.1); PLATELET COUNT 135 10^3/uL (134-434); RBC 3.32 M/mm3 (3.60-5.2); RDW 14.8 % (11.6-15.6); WHITE BLOOD COUNT 5.4 K/mm3 (4.0-10.0)
[2021-01-19 07:51] LABS: CHLORIDE 107 mmol/L (98-107); SODIUM 142 mmol/L (136-145)
[2021-01-19 07:53] LABS: ALBUMIN 2.8 g/dl (3.4-5.0); ANION GAP 11 MMOL/L (8-16); BLOOD UREA NITROGEN 36.4 mg/dL (7-18); CALCIUM 8.1 mg/dL (8.5-10.1); CO2 24 mmol/L (21-32); MAGNESIUM 1.8 mg/dL (1.8-2.4)
[2021-01-19 07:54] LABS: GLUCOSE,RANDOM 162 mg/dL (74-106)
[2021-01-19 07:56] LABS: CREATININE 5.9 mg/dL (0.55-1.3); SGOT/AST 10 U/L (15-37)
[2021-01-19 07:57] LABS: PHOSPHOROUS 3.7 mg/dL (2.5-4.9)
[2021-01-19 07:58] LABS: BILIRUBIN,TOTAL 0.6 mg/dL (0.2-1); TOT PROT 5.7 g/dl (6.4-8.2)
[2021-01-19 07:59] LABS: ALK PHOS 159 U/L (45-117)
[2021-01-19 08:47] LABS: SGPT/ALT < 6 U/L (13-61)
[2021-01-19] MEDS ORDERED: amLODIPine BESYLATE 5 MG TABLET (FP) ONE (09:15)
[2021-01-19] MEDS ORDERED: PANTOPRAZOLE 40 MG TABLET ONE (09:15)
[2021-01-19] MEDS ORDERED: ASPIRIN COATED 81 MG TABLET.EC ONE (09:15)
[2021-01-19] MEDS: ASPIRIN 81 MG CHEWABLE TABLETS PO SCH (09:34)
[2021-01-19] MEDS: amLODIPine BESYLATE 10 MG TABLET (FP) PO SCH (09:35)
[2021-01-19] MEDS: PANTOPRAZOLE 40 MG TABLET PO SCH (09:35)
[2021-01-19 09:51] LABS: PH,URINE >= 9.0 (5.0-8.0); URINE APPEARANCE CLOUDY; URINE BILIRUBIN NEGATIVE (NEGATIVE); URINE COLOR YELLOW; URINE GLUCOSE (UA) TRACE (NEGATIVE); URINE KETONE NEGATIVE (NEGATIVE); URINE LEUK ESTERASE 3+ (NEGATIVE); URINE NITRITE NEGATIVE (NEGATIVE); URINE PROTEIN 3+ (NEGATIVE); URINE UROBILINOGEN 0.2 mg/dL (0.2-1.0)
[2021-01-19 09:59] LABS: EPI CELLS MODERATE /HPF; URINE BACTERIA MODERATE /hpf (NEGATIVE)
[2021-01-19] MEDS ORDERED: hydrALAZINE HCL 50 MG TABLET (FP) PO SCH (10:00)
[2021-01-19] MEDS: hydrALAZINE HCL 50 MG TABLET (FP) PO SCH (21:26)
[2021-01-19] MEDS: LABETALOL HCL 100 MG TABLET (FP) PO SCH (21:26)
[2021-01-19] MEDS: ATORVASTATIN CA 10 MG TABLET (FP) PO SCH (21:26)
[2021-01-20] MEDS ORDERED: LABETALOL HCL 5 MG/1 ML (100MG/20 ML VIAL) IVPUSH ONE (01:53)
[2021-01-20] MEDS ORDERED: NIFEdipine 10 MG CAPSULE (FP) PO ONE (01:56)
[2021-01-20] MEDS: HEPARIN NA (PORCINE) 5,000 UNITS/ML 1ML VIAL SQ SCH ×4 (06:00→21:28)
[2021-01-20] MEDS: hydrALAZINE HCL 50 MG TABLET (FP) PO SCH ×2 (09:27→21:27)
[2021-01-20] MEDS: LABETALOL HCL 100 MG TABLET (FP) PO SCH ×2 (09:27→21:27)
[2021-01-20] MEDS: amLODIPine BESYLATE 10 MG TABLET (FP) PO SCH (09:27)
[2021-01-20] MEDS: ASPIRIN 81 MG CHEWABLE TABLETS PO SCH (09:27)
[2021-01-20] MEDS: PANTOPRAZOLE 40 MG TABLET PO SCH (09:28)
[2021-01-20] MEDS: ATORVASTATIN CA 10 MG TABLET (FP) PO SCH (21:28)
[2021-01-21] MEDS: HEPARIN NA (PORCINE) 5,000 UNITS/ML 1ML VIAL SQ SCH ×3 (05:21→21:13)
[2021-01-21] MEDS: hydrALAZINE HCL 50 MG TABLET (FP) PO SCH ×3 (05:21→21:13)
[2021-01-21] MEDS: amLODIPine BESYLATE 10 MG TABLET (FP) PO SCH (10:19)
[2021-01-21] MEDS: PANTOPRAZOLE 40 MG TABLET PO SCH (10:19)
[2021-01-21] MEDS: LABETALOL HCL 100 MG TABLET (FP) PO SCH ×2 (10:19→21:13)
[2021-01-21] MEDS: ASPIRIN 81 MG CHEWABLE TABLETS PO SCH (10:19)
[2021-01-21] MEDS: ATORVASTATIN CA 10 MG TABLET (FP) PO SCH (21:13)
[2021-01-22] MEDS ORDERED: LABETALOL HCL 200 MG TABLET (FP) PO ONE (01:37)
[2021-01-22] MEDS: HEPARIN NA (PORCINE) 5,000 UNITS/ML 1ML VIAL SQ SCH ×3 (05:12→21:05)
[2021-01-22] MEDS: hydrALAZINE HCL 50 MG TABLET (FP) PO SCH ×3 (07:29→21:05)
[2021-01-22] MEDS ORDERED: SODIUM CHLORIDE 250 ML IV PRN ×2 (09:13→09:14)
[2021-01-22] MEDS ORDERED: HEPARIN NA (PORCINE) 5,000 UNITS/ML 1ML VIAL IVPUSH ONE (09:15)
[2021-01-22] MEDS ORDERED: EPOETIN ALFA-EPBX 3,000 UNIT/ML VIAL SQ ONE (09:45)
[2021-01-22] MEDS: LABETALOL HCL 100 MG TABLET (FP) PO SCH ×2 (10:42→21:05)
[2021-01-22] MEDS: amLODIPine BESYLATE 10 MG TABLET (FP) PO SCH (10:43)
[2021-01-22 11:09] LABS: HEMATOCRIT 27.5 % (32.4-45.2); HEMOGLOBIN 9.5 GM/dL (10.7-15.3); MCH 29.7 pg (25.7-33.7); MCHC 34.4 g/dl (32.0-36.0); MEAN CELL VOLUME 86.2 fl (80-96); MEAN PLT VOLUME 8.3 fl (7.5-11.1); PLATELET COUNT 111 10^3/uL (134-434); RBC 3.19 M/mm3 (3.60-5.2); RDW 15.1 % (11.6-15.6); WHITE BLOOD COUNT 3.7 K/mm3 (4.0-10.0)
[2021-01-22 11:24] LABS: CHLORIDE 100 mmol/L (98-107); SODIUM 138 mmol/L (136-145)
[2021-01-22 11:26] LABS: ALBUMIN 2.9 g/dl (3.4-5.0); ANION GAP 12 MMOL/L (8-16); BLOOD UREA NITROGEN 50.9 mg/dL (7-18); CALCIUM 8.7 mg/dL (8.5-10.1); CO2 25 mmol/L (21-32); GLUCOSE,RANDOM 203 mg/dL (74-106)
[2021-01-22 11:29] LABS: SGOT/AST 15 U/L (15-37)
[2021-01-22 11:31] LABS: BILIRUBIN,TOTAL 0.6 mg/dL (0.2-1); TOT PROT 5.9 g/dl (6.4-8.2)
[2021-01-22 11:32] LABS: ALK PHOS 148 U/L (45-117)
[2021-01-22 11:36] LABS: SGPT/ALT 11 U/L (13-61)
[2021-01-22 11:38] LABS: CREATININE 8.3 mg/dL (0.55-1.3)
[2021-01-22] MEDS: ASPIRIN 81 MG CHEWABLE TABLETS PO SCH (14:57)
[2021-01-22] MEDS: PANTOPRAZOLE 40 MG TABLET PO SCH (14:57)
[2021-01-22] MEDS: cloNIDine HCL 0.1 MG TABLET PO SCH (21:04)
[2021-01-22] MEDS: ATORVASTATIN CA 10 MG TABLET (FP) PO SCH (21:05)
[2021-01-23] MEDS: HEPARIN NA (PORCINE) 5,000 UNITS/ML 1ML VIAL SQ SCH (05:44)
[2021-01-23] MEDS: hydrALAZINE HCL 50 MG TABLET (FP) PO SCH (06:00)
[2021-01-23] MEDS: ASPIRIN 81 MG CHEWABLE TABLETS PO SCH (09:42)
[2021-01-23] MEDS: cloNIDine HCL 0.1 MG TABLET PO SCH (09:42)
[2021-01-23] MEDS: amLODIPine BESYLATE 10 MG TABLET (FP) PO SCH (09:42)
[2021-01-23] MEDS: LABETALOL HCL 100 MG TABLET (FP) PO SCH (09:42)
[2021-01-23] MEDS: PANTOPRAZOLE 40 MG TABLET PO SCH (09:42)
[2021-01-23 11:51] VITALS: BP 166/67; PULSE 66; TEMP 98.9
== END 2021-01-23 12:14 | disposition home or self-care (01) | DRG 199 ==
LOC: JER 18:23 → MERGE 20:38 → JERBED 20:38 → J4W 01-19 16:46
PROVIDERS: ADMIT Internal Medicine; ATTEND Internal Medicine
PROC: 5A1D70Z Performance of Urinary Filtration, Intermittent, Less than 6 Hours Per Day (ICD-10-PCS; principal; 2021-01-22)
DX: I16.0 Hypertensive urgency (principal); N18.6 End stage renal disease; E87.70 Fluid overload, unspecified; I69.354 Hemiplegia and hemiparesis following cerebral infarction affecting left non-dominant side; I12.0 Hypertensive chronic kidney disease with stage 5 chronic kidney disease or end stage renal disease; R16.0 Hepatomegaly, not elsewhere classified; E04.2 Nontoxic multinodular goiter; E78.5 Hyperlipidemia, unspecified; J98.11 Atelectasis; K29.50 Unspecified chronic gastritis without bleeding; R10.13 Epigastric pain; R11.2 Nausea with vomiting, unspecified; T46.5X6A Underdosing of other antihypertensive drugs, initial encounter; Z99.2 Dependence on renal dialysis; Z91.14 Patient's other noncompliance with medication regimen; D63.1 Anemia in chronic kidney disease
CPT/HCPCS: 36415; 70450-TC; 71045-TC-FY; 71250-TC; 74176-TC; 80053; 81003; 82550; 83605; 83690; 83735; 84100; 84484; 85025; 85027; 85610; 85730; 86803; 87086; 87340; 87804; 93005; 93010; 99285-25; C9803; J0735; J1644; Q5106; U0003; U0005

== ENCOUNTER 2021-11-02 17:46 | Inpatient (IN) | payer OTHER ==
[2021-11-02 17:55] VITALS: BMI 24.7
[2021-11-02] MEDS ORDERED: ACETAMINOPHEN 650 MG/20.3 ML ORAL SOLUTION (CUPS) PO ONE (18:12)
[2021-11-02] MEDS ORDERED: ACETAMINOPHEN 650 MG/20.3 ML ORAL SOLUTION (CUPS) ONE (18:17)
[2021-11-02] MEDS ORDERED: FAMOTIDINE 20 MG/50 ML IVPB 20 MG/50 ML MG IVPB ONE (18:57)
[2021-11-02] MEDS ORDERED: hydrALAZINE HCL 10 MG TABLET PO ONE (19:04)
[2021-11-02] MEDS ORDERED: cloNIDine HCL 0.1 MG TABLET PO ONE (19:04)
[2021-11-02] MEDS ORDERED: LABETALOL HCL 100 MG TABLET (FP) PO ONE (19:04)
[2021-11-02] MEDS ORDERED: cloNIDine HCL 0.1 MG TABLET ONE (19:34)
[2021-11-02] MEDS ORDERED: hydrALAZINE HCL 50 MG TABLET (FP) ONE (19:34)
[2021-11-02] MEDS ORDERED: LABETALOL HCL 100 MG TABLET (FP) ONE (19:34)
[2021-11-02 19:55] LABS: BASO % 0.4 % (0-2.0); EOS % 2.6 % (0-4.5); HEMATOCRIT 34.6 % (32.4-45.2); HEMOGLOBIN 11.6 GM/dL (10.7-15.3); LYMPH % 17.6 % (8-40); MCH 27.9 pg (25.7-33.7); MCHC 33.6 g/dl (32.0-36.0); MEAN CELL VOLUME 83.2 fl (80-96); MEAN PLT VOLUME 7.9 fl (7.5-11.1); MONO % 6.6 % (3.8-10.2); NEUT % 72.8 % (42.8-82.8); PLATELET COUNT 152 10^3/uL (134-434); RBC 4.16 M/mm3 (3.60-5.2); RDW 17.6 % (11.6-15.6); WHITE BLOOD COUNT 4.7 K/mm3 (4.0-10.0)
[2021-11-02 20:16] LABS: CHLORIDE 102 mmol/L (98-107); SODIUM 138 mmol/L (136-145)
[2021-11-02 20:19] LABS: ANION GAP 16 MMOL/L (8-16); BLOOD UREA NITROGEN 61.8 mg/dL (7-18); CALCIUM 9.1 mg/dL (8.5-10.1); CO2 20 mmol/L (21-32); GLUCOSE,RANDOM 211 mg/dL (74-106); LIPASE 80 U/L (73-393); MAGNESIUM 2.3 mg/dL (1.8-2.4)
[2021-11-02 20:20] LABS: ALBUMIN 3.4 g/dl (3.4-5.0)
[2021-11-02 20:22] LABS: SGOT/AST 15 U/L (15-37); SGPT/ALT 13 U/L (13-61)
[2021-11-02 20:24] LABS: BILIRUBIN,TOTAL 0.7 mg/dL (0.2-1); TOT PROT 6.4 g/dl (6.4-8.2)
[2021-11-02 20:25] LABS: ALK PHOS 127 U/L (45-117); CREATININE 7.8 mg/dL (0.55-1.3)
[2021-11-02] MEDS ORDERED: ACETAMINOPHEN 325 MG TABLET (FP) ONE (21:12)
[2021-11-02] MEDS ORDERED: morphine CARPU-JECT 2 MG/1 ML DISP.SYRIN IVPUSH ONE (21:40)
[2021-11-02] MEDS ORDERED: LIDOCAINE 5% TOPICAL PATCH TP ONE (21:40)
[2021-11-02] MEDS ORDERED: LIDOCAINE 5% TOPICAL PATCH ONE (21:44)
[2021-11-03] MEDS ORDERED: LOSARTAN POTASSIUM 50 MG TABLET PO ONE ×2 (01:19→10:30)
[2021-11-03] MEDS ORDERED: LOSARTAN POTASSIUM 50 MG TABLET ONE (02:00)
[2021-11-03] MEDS ORDERED: hydrALAZINE HCL 50 MG TABLET (FP) PO SCH (06:00)
[2021-11-03] MEDS ORDERED: hydrALAZINE HCL 50 MG TABLET (FP) ONE (07:07)
[2021-11-03] MEDS: LIDOCAINE PATCH REMOVAL MC SCH ×2 (07:15→22:15)
[2021-11-03] MEDS ORDERED: amLODIPine BESYLATE 10 MG TABLET (FP) PO SCH (10:00)
[2021-11-03] MEDS ORDERED: LABETALOL HCL 200 MG, LABETALOL HCL 100 MG PO SCH (10:00)
[2021-11-03] MEDS: LOSARTAN POTASSIUM 50 MG TABLET PO SCH (10:05)
[2021-11-03] MEDS: SEVELAMER CARBONATE 800 MG TAB (FP) PO SCH ×3 (10:26→17:54)
[2021-11-03] MEDS: ASPIRIN 81 MG CHEWABLE TABLETS PO SCH (12:00)
[2021-11-03] MEDS: POLYETHYLENE GLYCOL (HEALTHYLAX) 3350 17 GM PACKET PO SCH ×2 (12:00→22:13)
[2021-11-03] MEDS ORDERED: POLYETHYLENE GLYCOL (HEALTHYLAX) 3350 17 GM PACKET ONE (12:12)
[2021-11-03] MEDS ORDERED: ASPIRIN 81 MG CHEWABLE TABLETS ONE (12:13)
[2021-11-03] MEDS: hydrALAZINE HCL 50 MG TABLET (FP) PO SCH ×3 (15:35→22:13)
[2021-11-03] MEDS ORDERED: ACETAMINOPHEN 500 MG TABLET (FP) PO PRN (16:57)
[2021-11-03] MEDS ORDERED: LORazepam 2 MG/ML SDV VIAL IVPUSH ONE (21:24)
[2021-11-03] MEDS: ATORVASTATIN CA 10 MG TABLET (FP) PO SCH (22:13)
[2021-11-03] MEDS: LABETALOL HCL 200 MG, LABETALOL HCL 100 MG PO SCH (22:14)
[2021-11-03] MEDS: CINACALCET HCL 30 MG TAB (FP) PO SCH (22:15)
[2021-11-04] MEDS: hydrALAZINE HCL 50 MG TABLET (FP) PO SCH ×3 (05:54→21:54)
[2021-11-04] MEDS: SEVELAMER CARBONATE 800 MG TAB (FP) PO SCH ×3 (09:07→18:05)
[2021-11-04] MEDS ORDERED: cloNIDine HCL 0.1 MG TABLET PO SCH (10:30)
[2021-11-04] MEDS: LOSARTAN POTASSIUM 50 MG TABLET PO SCH (13:01)
[2021-11-04] MEDS: LABETALOL HCL 200 MG, LABETALOL HCL 100 MG PO SCH ×2 (13:01→21:54)
[2021-11-04] MEDS: ASPIRIN 81 MG CHEWABLE TABLETS PO SCH (13:01)
[2021-11-04] MEDS: amLODIPine BESYLATE 10 MG TABLET (FP) PO SCH (13:02)
[2021-11-04] MEDS: POLYETHYLENE GLYCOL (HEALTHYLAX) 3350 17 GM PACKET PO SCH ×2 (13:05→21:51)
[2021-11-04] MEDS: cloNIDine HCL 0.1 MG TABLET PO SCH (21:53)
[2021-11-04] MEDS: ATORVASTATIN CA 10 MG TABLET (FP) PO SCH (21:54)
[2021-11-04] MEDS: CINACALCET HCL 30 MG TAB (FP) PO SCH (21:55)
[2021-11-04] MEDS: LIDOCAINE PATCH REMOVAL MC SCH (22:13)
[2021-11-05] MEDS: hydrALAZINE HCL 50 MG TABLET (FP) PO SCH ×3 (05:51→21:32)
[2021-11-05] MEDS: SEVELAMER CARBONATE 800 MG TAB (FP) PO SCH ×3 (08:30→17:47)
[2021-11-05] MEDS: POLYETHYLENE GLYCOL (HEALTHYLAX) 3350 17 GM PACKET PO SCH ×2 (13:47→21:38)
[2021-11-05] MEDS: LABETALOL HCL 200 MG, LABETALOL HCL 100 MG PO SCH ×2 (13:47→21:33)
[2021-11-05] MEDS: cloNIDine HCL 0.1 MG TABLET PO SCH ×2 (13:47→21:33)
[2021-11-05] MEDS: LOSARTAN POTASSIUM 50 MG TABLET PO SCH (13:47)
[2021-11-05] MEDS: amLODIPine BESYLATE 10 MG TABLET (FP) PO SCH (13:47)
[2021-11-05] MEDS: ASPIRIN 81 MG CHEWABLE TABLETS PO SCH (13:47)
[2021-11-05] MEDS: CINACALCET HCL 30 MG TAB (FP) PO SCH (21:32)
[2021-11-05] MEDS: ATORVASTATIN CA 10 MG TABLET (FP) PO SCH (21:33)
[2021-11-05] MEDS: LIDOCAINE PATCH REMOVAL MC SCH (21:39)
[2021-11-06] MEDS: hydrALAZINE HCL 50 MG TABLET (FP) PO SCH ×2 (05:20→13:31)
[2021-11-06] MEDS: SEVELAMER CARBONATE 800 MG TAB (FP) PO SCH ×4 (08:07→16:41)
[2021-11-06] MEDS: POLYETHYLENE GLYCOL (HEALTHYLAX) 3350 17 GM PACKET PO SCH (09:52)
[2021-11-06] MEDS: amLODIPine BESYLATE 10 MG TABLET (FP) PO SCH (09:59)
[2021-11-06] MEDS: cloNIDine HCL 0.1 MG TABLET PO SCH (09:59)
[2021-11-06] MEDS: LABETALOL HCL 200 MG, LABETALOL HCL 100 MG PO SCH (09:59)
[2021-11-06] MEDS: LOSARTAN POTASSIUM 50 MG TABLET PO SCH (09:59)
[2021-11-06] MEDS: ASPIRIN 81 MG CHEWABLE TABLETS PO SCH (09:59)
[2021-11-06 18:46] VITALS: BP 132/46; PULSE 60; RESP 18; TEMP 97.4
== END 2021-11-06 18:54 | disposition home or self-care (01) | DRG 470 ==
LOC: JER 17:46 → UNDOADMIN 18:11 → JERBED 18:11 → J4W 11-03 12:52
PROVIDERS: ADMIT Hospitalist; ATTEND Family Medicine
PROC: 5A1D70Z Performance of Urinary Filtration, Intermittent, Less than 6 Hours Per Day (ICD-10-PCS; principal; 2021-11-05)
DX: I12.0 Hypertensive chronic kidney disease with stage 5 chronic kidney disease or end stage renal disease (principal); N18.6 End stage renal disease; I69.354 Hemiplegia and hemiparesis following cerebral infarction affecting left non-dominant side; E78.5 Hyperlipidemia, unspecified; I16.0 Hypertensive urgency; R42 Dizziness and giddiness; Z79.82 Long term (current) use of aspirin; Z99.2 Dependence on renal dialysis
CPT/HCPCS: 36415; 71045-TC-FY; 80053; 83690; 83735; 84100; 85025; 86803; 87340; 93005; 93010; 97116-GP; 97162-GP; 99285-25; C9803-CS; J0735; U0003; U0005

== ENCOUNTER 2021-11-18 17:54 | Emergency (ER) | payer OTHER ==
[2021-11-18 18:06] VITALS: PULSE 75; RESP 18; TEMP 98.1; BMI 23.0
[2021-11-18] MEDS ORDERED: morphine CARPU-JECT 4 MG/1 ML DISP.SYRIN IVPUSH ONE ×2 (18:45→22:01)
[2021-11-18] MEDS ORDERED: morphine SULFATE 4 MG/ML VIAL ONE ×2 (19:00→22:03)
[2021-11-18 20:13] LABS: BASO % 0.8 % (0-2.0); EOS % 2.2 % (0-4.5); HEMOGLOBIN 10.1 GM/dL (10.7-15.3); LYMPH % 12.2 % (8-40); MCH 28.7 pg (25.7-33.7); MCHC 33.7 g/dl (32.0-36.0); MEAN CELL VOLUME 85.1 fl (80-96); MEAN PLT VOLUME 7.7 fl (7.5-11.1); MONO % 5.7 % (3.8-10.2); NEUT % 79.1 % (42.8-82.8); PLATELET COUNT 151 10^3/uL (134-434); RBC 3.53 M/mm3 (3.60-5.2); RDW 17.7 % (11.6-15.6); WHITE BLOOD COUNT 4.6 K/mm3 (4.0-10.0)
[2021-11-18 20:22] LABS: INR 1.13 (0.83-1.09)
[2021-11-18 20:25] LABS: ACTIVATED PTT 30.9 SECONDS (25.2-36.5)
[2021-11-18] MEDS ORDERED: hydrALAZINE HCL 50 MG TABLET (FP) PO ONE (20:34)
[2021-11-18 20:44] LABS: CALCIUM 9.2 mg/dL (8.5-10.1)
[2021-11-18 20:45] LABS: ALBUMIN 3.4 g/dl (3.4-5.0)
[2021-11-18 20:48] LABS: CREATININE 6.9 mg/dL (0.55-1.3)
[2021-11-18 20:50] LABS: BILIRUBIN,TOTAL 0.6 mg/dL (0.2-1); TOT PROT 6.2 g/dl (6.4-8.2)
[2021-11-18] MEDS ORDERED: hydrALAZINE HCL 50 MG TABLET (FP) ONE (21:03)
[2021-11-18] MEDS ORDERED: LABETALOL HCL 5 MG/1 ML (100MG/20 ML VIAL) IVPUSH ONE (21:45)
[2021-11-18] MEDS ORDERED: LABETALOL HCL 5 MG/1 ML (100MG/20 ML VIAL) ONE (22:03)
[2021-11-18 22:30] VITALS: BP 189/68
[2021-11-18] MEDS ORDERED: VANCOMYCIN 1 GM in D5W (PRE-DOCKED) 1,000 MG/250 ML IVPB ONE (23:00)
[2021-11-18] MEDS ORDERED: CEFEPIME HCL/D5W 2 GM/50 ML BAG IVPB ONE (23:01)
== END 2021-11-19 00:56 | disposition short-term general hospital (02) ==
LOC: JER 17:54
PROC: 3E033GC Introduction of Other Therapeutic Substance into Peripheral Vein, Percutaneous Approach (ICD-10-PCS; principal; 2021-11-18)
DX: M54.50 Low back pain, unspecified (principal); M79.605 Pain in left leg
CPT/HCPCS: 36415; 70450-TC; 71045-TC-FY; 72125-TC; 72128-TC; 72131-TC; 72170-TC-FY; 73521-TC-FY; 73552-TC-LT-FY; 74176-TC; 80053; 82550; 85025; 85610; 85730; 86850; 86900; 86901; 99285-25; C9803-CS; U0003; U0005

== ENCOUNTER 2022-02-25 20:52 | Emergency (ER) | payer OTHER ==
[2022-02-25 21:14] VITALS: BMI 26.5
[2022-02-25 22:25] LABS: BASO % 0.6 % (0-2.0); EOS % 1.7 % (0-4.5); HEMOGLOBIN 10.5 GM/dL (10.7-15.3); LYMPH % 19.6 % (8-40); MCH 27.8 pg (25.7-33.7); MCHC 32.8 g/dl (32.0-36.0); MEAN CELL VOLUME 84.8 fl (80-96); MEAN PLT VOLUME 8.3 fl (7.5-11.1); MONO % 8.5 % (3.8-10.2); NEUT % 69.6 % (42.8-82.8); PLATELET COUNT 144 10^3/uL (134-434); RBC 3.77 M/mm3 (3.60-5.2); RDW 18.1 % (11.6-15.6); WHITE BLOOD COUNT 3.4 K/mm3 (4.0-10.0)
[2022-02-25 22:36] LABS: INR 1.11 (0.83-1.09); PROTHROMBIN TIME (PATIENT) 12.8 SEC (9.7-13.0)
[2022-02-25 22:54] LABS: CALCIUM 9.1 mg/dL (8.5-10.1)
[2022-02-25 22:55] LABS: MAGNESIUM 2.2 mg/dL (1.8-2.4)
[2022-02-25 22:58] LABS: ALBUMIN 3.3 g/dl (3.4-5.0); BLOOD UREA NITROGEN 19.8 mg/dL (7-18); CREATININE 3.7 mg/dL (0.55-1.3)
[2022-02-25 23:00] LABS: TOT PROT 6.3 g/dl (6.4-8.2)
[2022-02-25 23:03] LABS: BILIRUBIN,TOTAL 0.5 mg/dL (0.2-1)
[2022-02-26 00:58] LABS: ERYTHROCYTE SEDIMENTATION RATE 34 mm/hr (0-30)
[2022-02-26] MEDS ORDERED: ATORVASTATIN CA 80 MG TABLET (FP) PO ONE (01:27)
[2022-02-26] MEDS ORDERED: ATORVASTATIN CA 80 MG TABLET (FP) ONE (01:35)
[2022-02-26 04:01] VITALS: TEMP 98
[2022-02-26] MEDS ORDERED: LABETALOL HCL 5 MG/1 ML (100MG/20 ML VIAL) IVPUSH ONE (07:56)
[2022-02-26 08:03] VITALS: RESP 20
[2022-02-26] MEDS ORDERED: hydrALAZINE HCL 20 MG/ML VIAL IVPUSH ONE (08:47)
[2022-02-26] MEDS ORDERED: hydrALAZINE HCL 20 MG/ML VIAL ONE (08:56)
[2022-02-26] MEDS ORDERED: ENOXAPARIN NA (PORCINE) 40 MG/0.4 ML DISP.SYRIN SQ SCH (10:00)
[2022-02-26] MEDS ORDERED: ENOXAPARIN NA (PORCINE) 30 MG/0.3 ML DISP.SYRIN SQ SCH (10:00)
[2022-02-26] MEDS ORDERED: ASPIRIN COATED 81 MG TABLET.EC PO SCH (10:00)
[2022-02-26 10:27] VITALS: BP 187/65; PULSE 78
[2022-02-26] MEDS ORDERED: ATORVASTATIN CA 80 MG TABLET (FP) PO SCH (22:00)
== END 2022-02-26 11:15 | disposition short-term general hospital (02) ==
LOC: SUATTDRO 20:52 → JER 20:52 → JERBED 02-26 01:03 → UNDOADMIN 02-26 01:03 → JER 02-26 11:15
PROVIDERS: ATTEND Family Medicine
PROC: 3E033GC Introduction of Other Therapeutic Substance into Peripheral Vein, Percutaneous Approach (ICD-10-PCS; principal; 2022-02-25)
DX: N18.6 End stage renal disease (principal); H53.131 Sudden visual loss, right eye; Z99.2 Dependence on renal dialysis; Z86.73 Personal history of transient ischemic attack (TIA), and cerebral infarction without residual deficits
CPT/HCPCS: 0241U-QW; 36415; 70450-TC; 70496-TC; 70498-TC; 71045-TC-FY; 80053; 80061; 83735; 84100; 84484; 85025; 85610; 85651; 85730; 93005; 93010; 99285-25; G0463-25

== ENCOUNTER 2022-05-03 11:11 | Inpatient (IN) | payer OTHER ==
[2022-05-03] MEDS ORDERED: LABETALOL HCL 5 MG/1 ML (100MG/20 ML VIAL) IVPUSH ONE (12:00)
[2022-05-03] MEDS ORDERED: LABETALOL HCL 20 MG/4 ML VIAL ONE ×2 (12:10→21:00)
[2022-05-03 12:51] LABS: VENOUS O2 SATURATION 33.6 % (70-80); VENOUS PH 7.42 (7.310-7.410)
[2022-05-03] MEDS ORDERED: hydrALAZINE HCL 20 MG/ML VIAL IVPUSH ONE (12:57)
[2022-05-03 12:59] LABS: BASO % 0.6 % (0-2.0); EOS % 1.8 % (0-4.5); HEMATOCRIT 31.6 % (32.4-45.2); HEMOGLOBIN 10.6 GM/dL (10.7-15.3); LYMPH % 28.1 % (8-40); MCH 29.5 pg (25.7-33.7); MCHC 33.4 g/dl (32.0-36.0); MEAN CELL VOLUME 88.1 fl (80-96); MEAN PLT VOLUME 7.9 fl (7.5-11.1); MONO % 10.1 % (3.8-10.2); NEUT % 59.4 % (42.8-82.8); PLATELET COUNT 130 10^3/uL (134-434); RBC 3.59 M/mm3 (3.60-5.2); RDW 15.3 % (11.6-15.6); WHITE BLOOD COUNT 2.6 K/mm3 (4.0-10.0)
[2022-05-03] MEDS ORDERED: hydrALAZINE HCL 20 MG/ML VIAL ONE (13:05)
[2022-05-03 13:06] LABS: INR 1.16 (0.83-1.09); PROTHROMBIN TIME (PATIENT) 13.4 SEC (9.7-13.0)
[2022-05-03 13:08] LABS: ACTIVATED PTT 35.3 SECONDS (25.2-36.5)
[2022-05-03 13:23] LABS: CHLORIDE 101 mmol/L (98-107); SODIUM 139 mmol/L (136-145)
[2022-05-03 13:25] LABS: BLOOD UREA NITROGEN 12.9 mg/dL (7-18); CALCIUM 9.5 mg/dL (8.5-10.1)
[2022-05-03 13:26] LABS: ALBUMIN 3.1 g/dl (3.4-5.0); ANION GAP 9 MMOL/L (8-16); CO2 29 mmol/L (21-32); GLUCOSE,RANDOM 93 mg/dL (74-106); MAGNESIUM 2.1 mg/dL (1.8-2.4)
[2022-05-03 13:28] LABS: PHOSPHOROUS 3.2 mg/dL (2.5-4.9); SGOT/AST 22 U/L (15-37); SGPT/ALT 15 U/L (13-61)
[2022-05-03 13:29] LABS: CREATININE 2.5 mg/dL (0.55-1.3)
[2022-05-03 13:30] LABS: BILIRUBIN,TOTAL 0.6 mg/dL (0.2-1)
[2022-05-03 13:31] LABS: ALK PHOS 106 U/L (45-117)
[2022-05-03 14:22] LABS: EPI CELLS 3 /uL (0-25.1); HYALINE CASTS 0 /uL (0-3.1); PH,URINE >= 9.0 (5.0-8.0); URINE APPEARANCE CLEAR; URINE BACTERIA 4 /uL (0-1359); URINE BILIRUBIN NEGATIVE (NEGATIVE); URINE COLOR YELLOW; URINE GLUCOSE (UA) TRACE (NEGATIVE); URINE KETONE NEGATIVE (NEGATIVE); URINE LEUK ESTERASE NEGATIVE (NEGATIVE); URINE NITRITE NEGATIVE (NEGATIVE); URINE PROTEIN 3+ (NEGATIVE); URINE RBC 85 /uL (0-23.9); URINE UROBILINOGEN 0.2 mg/dL (0.2-1.0); URINE WBC 5 /uL (0-25.8)
[2022-05-03] MEDS ORDERED: LABETALOL HCL 20 MG/4 ML VIAL IVPUSH ONE (20:33)
[2022-05-03] MEDS ORDERED: DOCUSATE SODIUM 100 MG CAPSULE (FP) PO PRN (21:29)
[2022-05-03] MEDS ORDERED: hydrALAZINE HCL 50 MG TABLET (FP) PO SCH (22:00)
[2022-05-03] MEDS ORDERED: CINACALCET HCL 60 MG PO SCH (22:00)
[2022-05-03] MEDS ORDERED: HEPARIN NA (PORCINE) 5,000 UNITS/ML 1ML VIAL SQ SCH (22:00)
[2022-05-03] MEDS: ATORVASTATIN CA 80 MG TABLET (FP) PO SCH (23:57)
[2022-05-03] MEDS: CINACALCET HCL 30 MG TAB (FP) PO SCH (23:57)
[2022-05-04] MEDS ORDERED: hydrALAZINE HCL 50 MG TABLET (FP) PO SCH (06:00)
[2022-05-04] MEDS: amLODIPine BESYLATE 10 MG TABLET (FP) PO SCH (08:54)
[2022-05-04] MEDS: SEVELAMER CARBONATE 2.4 GM POWDER PACKET PO SCH ×3 (08:55→17:30)
[2022-05-04] MEDS: LOSARTAN POTASSIUM 50 MG TABLET PO SCH (09:36)
[2022-05-04] MEDS: ASPIRIN 81 MG CHEWABLE TABLETS PO SCH (09:36)
[2022-05-04] MEDS: CLOPIDOGREL BISULFATE 75 MG TABLET (FP) PO SCH (09:36)
[2022-05-04] MEDS ORDERED: amLODIPine BESYLATE 10 MG TABLET (FP) PO SCH (10:00)
[2022-05-04] MEDS: cloNIDine HCL 0.1 MG TABLET PO SCH ×2 (13:02→22:00)
[2022-05-04] MEDS: hydrALAZINE HCL 50 MG TABLET (FP) PO SCH ×2 (14:01→21:59)
[2022-05-04 18:27] LABS: BASO % 1.3 % (0-2.0); HEMATOCRIT 35.5 % (32.4-45.2); HEMOGLOBIN 11.9 GM/dL (10.7-15.3); MCHC 33.5 g/dl (32.0-36.0); MEAN CELL VOLUME 86.6 fl (80-96); MEAN PLT VOLUME 8.2 fl (7.5-11.1); MONO % 5.3 % (3.8-10.2); NEUT % 84.4 % (42.8-82.8); PLATELET COUNT 147 10^3/uL (134-434); RDW 15.4 % (11.6-15.6); WHITE BLOOD COUNT 3.5 K/mm3 (4.0-10.0)
[2022-05-04 18:32] LABS: CALCIUM 9.6 mg/dL (8.5-10.1)
[2022-05-04 18:33] LABS: BLOOD UREA NITROGEN 33.4 mg/dL (7-18)
[2022-05-04 18:36] LABS: CREATININE 5.3 mg/dL (0.55-1.3)
[2022-05-04] MEDS: ATORVASTATIN CA 80 MG TABLET (FP) PO SCH (22:00)
[2022-05-05] MEDS: hydrALAZINE HCL 50 MG TABLET (FP) PO SCH ×3 (05:49→23:57)
[2022-05-05] MEDS: CINACALCET HCL 30 MG TAB (FP) PO SCH (05:49)
[2022-05-05] MEDS: SEVELAMER CARBONATE 2.4 GM POWDER PACKET PO SCH ×3 (07:43→17:50)
[2022-05-05] MEDS: LOSARTAN POTASSIUM 50 MG TABLET PO SCH (09:51)
[2022-05-05] MEDS: ASPIRIN 81 MG CHEWABLE TABLETS PO SCH (09:51)
[2022-05-05] MEDS: CLOPIDOGREL BISULFATE 75 MG TABLET (FP) PO SCH (09:51)
[2022-05-05] MEDS: cloNIDine HCL 0.1 MG TABLET PO SCH ×3 (09:51→23:55)
[2022-05-05] MEDS: amLODIPine BESYLATE 10 MG TABLET (FP) PO SCH (09:54)
[2022-05-05] MEDS ORDERED: SODIUM CHLORIDE 250 ML IV PRN ×2 (12:14)
[2022-05-05] MEDS ORDERED: LOSARTAN POTASSIUM 50 MG TABLET PO ONE (12:30)
[2022-05-05] MEDS: ACETAMINOPHEN 325 MG TABLET (FP) PO PRN (13:21)
[2022-05-05] MEDS: ATORVASTATIN CA 80 MG TABLET (FP) PO SCH (23:57)
[2022-05-06] MEDS: CINACALCET HCL 30 MG TAB (FP) PO SCH ×2 (00:16→22:39)
[2022-05-06] MEDS: hydrALAZINE HCL 50 MG TABLET (FP) PO SCH ×3 (06:14→22:29)
[2022-05-06] MEDS: cloNIDine HCL 0.1 MG TABLET PO SCH ×3 (06:15→22:29)
[2022-05-06] MEDS: SEVELAMER CARBONATE 2.4 GM POWDER PACKET PO SCH ×3 (08:22→17:24)
[2022-05-06] MEDS: ASPIRIN 81 MG CHEWABLE TABLETS PO SCH (10:37)
[2022-05-06] MEDS: CLOPIDOGREL BISULFATE 75 MG TABLET (FP) PO SCH (10:37)
[2022-05-06 13:19] LABS: HEMATOCRIT 29.7 % (32.4-45.2); HEMOGLOBIN 9.9 GM/dL (10.7-15.3); MCHC 33.5 g/dl (32.0-36.0); MEAN CELL VOLUME 86.8 fl (80-96); MEAN PLT VOLUME 8.4 fl (7.5-11.1); PLATELET COUNT 91 10^3/uL (134-434); RBC 3.42 M/mm3 (3.60-5.2); RDW 15.5 % (11.6-15.6); WHITE BLOOD COUNT 2.2 K/mm3 (4.0-10.0)
[2022-05-06 13:47] LABS: CHLORIDE 98 mmol/L (98-107); SODIUM 132 mmol/L (136-145)
[2022-05-06 14:39] LABS: ALBUMIN 2.7 g/dl (3.4-5.0)
[2022-05-06 14:40] LABS: ANION GAP 13 MMOL/L (8-16); CO2 22 mmol/L (21-32); GLUCOSE,RANDOM 143 mg/dL (74-106)
[2022-05-06] MEDS: LOSARTAN POTASSIUM 50 MG TABLET PO SCH (14:41)
[2022-05-06] MEDS: amLODIPine BESYLATE 10 MG TABLET (FP) PO SCH (14:42)
[2022-05-06] MEDS: LORazepam 2 MG/ML SDV VIAL IVPUSH ONE ×2 (14:42→15:13)
[2022-05-06 14:43] LABS: SGOT/AST 29 U/L (15-37)
[2022-05-06 14:44] LABS: BILIRUBIN,TOTAL 0.5 mg/dL (0.2-1); SGPT/ALT 14 U/L (13-61)
[2022-05-06 14:45] LABS: ALK PHOS 87 U/L (45-117); TOT PROT 5.3 g/dl (6.4-8.2)
[2022-05-06 14:46] LABS: BLOOD UREA NITROGEN 66.9 mg/dL (7-18); CREATININE 8.6 mg/dL (0.55-1.3)
[2022-05-06] MEDS: ACETAMINOPHEN 325 MG TABLET (FP) PO PRN (16:26)
[2022-05-06] MEDS ORDERED: VANCOMYCIN 1 GM/200 ML PREMIX BAG (RESTRICTED TO ID ONLY) IVPB ONE ×2 (18:15→22:30)
[2022-05-06 19:22] LABS: EPI CELLS 19 /uL (0-25.1); HYALINE CASTS 0 /uL (0-3.1); PH,URINE >= 9.0 (5.0-8.0); URINE APPEARANCE CLEAR; URINE BACTERIA 7 /uL (0-1359); URINE BILIRUBIN NEGATIVE (NEGATIVE); URINE COLOR YELLOW; URINE GLUCOSE (UA) 1+ (NEGATIVE); URINE KETONE NEGATIVE (NEGATIVE); URINE LEUK ESTERASE NEGATIVE (NEGATIVE); URINE NITRITE NEGATIVE (NEGATIVE); URINE PROTEIN 3+ (NEGATIVE); URINE RBC 305 /uL (0-23.9); URINE UROBILINOGEN 0.2 mg/dL (0.2-1.0); URINE WBC 23 /uL (0-25.8)
[2022-05-06] MEDS: DONEPEZIL HCL 5 MG TABLET (FP) PO SCH (20:29)
[2022-05-06] MEDS: ATORVASTATIN CA 80 MG TABLET (FP) PO SCH (22:29)
[2022-05-07] MEDS: PIPERACILLIN/TAZOB 2.25 GM 2.25 GM in DEXTROSE 5%-WATER - 50 ML IVPB SCH ×3 (02:45→17:38)
[2022-05-07] MEDS: hydrALAZINE HCL 50 MG TABLET (FP) PO SCH ×2 (06:12→15:14)
[2022-05-07] MEDS: cloNIDine HCL 0.1 MG TABLET PO SCH ×3 (06:13→21:27)
[2022-05-07] MEDS: SEVELAMER CARBONATE 2.4 GM POWDER PACKET PO SCH ×4 (08:31→17:54)
[2022-05-07] MEDS: ASPIRIN 81 MG CHEWABLE TABLETS PO SCH (10:00)
[2022-05-07] MEDS: LOSARTAN POTASSIUM 50 MG TABLET PO SCH (10:01)
[2022-05-07] MEDS: amLODIPine BESYLATE 10 MG TABLET (FP) PO SCH (10:01)
[2022-05-07] MEDS: CLOPIDOGREL BISULFATE 75 MG TABLET (FP) PO SCH (10:01)
[2022-05-07] MEDS: DONEPEZIL HCL 5 MG TABLET (FP) PO SCH (10:01)
[2022-05-07 10:02] LABS: HEMATOCRIT 29.6 % (32.4-45.2); HEMOGLOBIN 10.1 GM/dL (10.7-15.3); MCH 29.1 pg (25.7-33.7); MCHC 33.9 g/dl (32.0-36.0); MEAN CELL VOLUME 85.8 fl (80-96); PLATELET COUNT 83 10^3/uL (134-434); RBC 3.45 M/mm3 (3.60-5.2); RDW 15.1 % (11.6-15.6); WHITE BLOOD COUNT 2.4 K/mm3 (4.0-10.0)
[2022-05-07 10:11] LABS: ALBUMIN 2.7 g/dl (3.4-5.0); CALCIUM 8.2 mg/dL (8.5-10.1)
[2022-05-07 10:14] LABS: CREATININE 4.5 mg/dL (0.55-1.3)
[2022-05-07 10:15] LABS: BILIRUBIN,TOTAL 0.6 mg/dL (0.2-1); TOT PROT 5.4 g/dl (6.4-8.2)
[2022-05-07 10:55] LABS: BLOOD UREA NITROGEN 28.3 mg/dL (7-18)
[2022-05-07 11:22] LABS: ANISOCYTOSIS 0; MACROCYTOSIS 0; OVALOCYTE 1+
[2022-05-07] MEDS: CINACALCET HCL 30 MG TAB (FP) PO SCH (21:27)
[2022-05-07] MEDS: ATORVASTATIN CA 80 MG TABLET (FP) PO SCH (21:28)
[2022-05-07] MEDS: hydrALAZINE HCL 25 MG TABLET (FP) PO SCH (21:28)
[2022-05-08] MEDS: PIPERACILLIN/TAZOB 2.25 GM 2.25 GM in DEXTROSE 5%-WATER - 50 ML IVPB SCH ×4 (02:58→17:56)
[2022-05-08] MEDS: hydrALAZINE HCL 25 MG TABLET (FP) PO SCH ×3 (05:48→21:36)
[2022-05-08] MEDS: cloNIDine HCL 0.1 MG TABLET PO SCH ×3 (05:48→21:36)
[2022-05-08] MEDS: SEVELAMER CARBONATE 2.4 GM POWDER PACKET PO SCH ×3 (07:54→17:56)
[2022-05-08] MEDS ORDERED: SODIUM CHLORIDE 250 ML IV PRN (09:00)
[2022-05-08 10:49] VITALS: RESP 18
[2022-05-08] MEDS: DONEPEZIL HCL 5 MG TABLET (FP) PO SCH (12:36)
[2022-05-08] MEDS: LOSARTAN POTASSIUM 50 MG TABLET PO SCH (12:36)
[2022-05-08] MEDS: CLOPIDOGREL BISULFATE 75 MG TABLET (FP) PO SCH (12:37)
[2022-05-08] MEDS: ASPIRIN 81 MG CHEWABLE TABLETS PO SCH (12:37)
[2022-05-08] MEDS: amLODIPine BESYLATE 10 MG TABLET (FP) PO SCH (12:37)
[2022-05-08] MEDS: ATORVASTATIN CA 80 MG TABLET (FP) PO SCH (21:35)
[2022-05-08] MEDS: ACETAMINOPHEN 325 MG TABLET (FP) PO PRN (21:40)
[2022-05-08] MEDS: CINACALCET HCL 30 MG TAB (FP) PO SCH (21:40)
[2022-05-09] MEDS: PIPERACILLIN/TAZOB 2.25 GM 2.25 GM in DEXTROSE 5%-WATER - 50 ML IVPB SCH ×3 (02:19→17:22)
[2022-05-09] MEDS: cloNIDine HCL 0.1 MG TABLET PO SCH ×4 (06:36→22:18)
[2022-05-09] MEDS: hydrALAZINE HCL 25 MG TABLET (FP) PO SCH ×4 (06:36→22:18)
[2022-05-09] MEDS: SEVELAMER CARBONATE 2.4 GM POWDER PACKET PO SCH ×3 (09:08→17:22)
[2022-05-09] MEDS: DONEPEZIL HCL 5 MG TABLET (FP) PO SCH (09:35)
[2022-05-09] MEDS: ASPIRIN 81 MG CHEWABLE TABLETS PO SCH (09:35)
[2022-05-09] MEDS: amLODIPine BESYLATE 10 MG TABLET (FP) PO SCH (09:35)
[2022-05-09] MEDS: LOSARTAN POTASSIUM 50 MG TABLET PO SCH (09:35)
[2022-05-09] MEDS: CLOPIDOGREL BISULFATE 75 MG TABLET (FP) PO SCH (09:35)
[2022-05-09] MEDS ORDERED: SODIUM CHLORIDE 250 ML IV PRN (13:42)
[2022-05-09] MEDS: ATORVASTATIN CA 80 MG TABLET (FP) PO SCH ×2 (21:55→22:18)
[2022-05-09] MEDS: CINACALCET HCL 30 MG TAB (FP) PO SCH ×2 (21:58→22:18)
[2022-05-10] MEDS: PIPERACILLIN/TAZOB 2.25 GM 2.25 GM in DEXTROSE 5%-WATER - 50 ML IVPB SCH ×3 (01:33→14:06)
[2022-05-10] MEDS: hydrALAZINE HCL 25 MG TABLET (FP) PO SCH (06:28)
[2022-05-10] MEDS: cloNIDine HCL 0.1 MG TABLET PO SCH ×2 (06:28→14:08)
[2022-05-10] MEDS: SEVELAMER CARBONATE 2.4 GM POWDER PACKET PO SCH ×2 (09:03→14:07)
[2022-05-10] MEDS ORDERED: EPOETIN ALFA-EPBX 4,000 UNIT/ML VIAL IVPUSH ONE (09:30)
[2022-05-10 10:45] LABS: HEMATOCRIT 29.7 % (32.4-45.2); MCH 28.7 pg (25.7-33.7); MCHC 33.7 g/dl (32.0-36.0); MEAN CELL VOLUME 85.1 fl (80-96); MEAN PLT VOLUME 8.7 fl (7.5-11.1); PLATELET COUNT 94 10^3/uL (134-434); RBC 3.49 M/mm3 (3.60-5.2); RDW 15.1 % (11.6-15.6); WHITE BLOOD COUNT 2.7 K/mm3 (4.0-10.0)
[2022-05-10 11:10] LABS: BLOOD UREA NITROGEN 35.4 mg/dL (7-18)
[2022-05-10 11:13] LABS: CREATININE 5.9 mg/dL (0.55-1.3)
[2022-05-10] MEDS ORDERED: CEFUROXIME AXETIL 250 MG TABLET PO SCH (12:00)
[2022-05-10 12:55] VITALS: BMI 20.5
[2022-05-10] MEDS: ASPIRIN 81 MG CHEWABLE TABLETS PO SCH (14:07)
[2022-05-10] MEDS: CLOPIDOGREL BISULFATE 75 MG TABLET (FP) PO SCH (14:07)
[2022-05-10] MEDS: LOSARTAN POTASSIUM 50 MG TABLET PO SCH (14:07)
[2022-05-10] MEDS: amLODIPine BESYLATE 10 MG TABLET (FP) PO SCH (14:07)
[2022-05-10] MEDS: DONEPEZIL HCL 5 MG TABLET (FP) PO SCH (14:07)
[2022-05-10 14:58] VITALS: BP 124/56; PULSE 59; TEMP 97.5
[2022-05-10] MEDS ORDERED: VITAMIN B COMP W-C 1 EA TABLET (NEPHRO-VITE) PO SCH (15:00)
[2022-05-10] MEDS ORDERED: hydrALAZINE HCL 50 MG TABLET (FP) PO SCH (22:00)
== END 2022-05-10 17:25 | disposition home health service (06) | DRG 470 ==
LOC: JER 11:11 → INTOOBSV 18:47 → JERBED 18:47 → J5S 05-04 00:35 → J4W 05-04 01:39 → OBSVTOIN 05-07 11:20
PROVIDERS: ADMIT Internal Medicine; ATTEND Family Medicine
DX: I12.0 Hypertensive chronic kidney disease with stage 5 chronic kidney disease or end stage renal disease (principal); F01.518 Vascular dementia, unspecified severity, with other behavioral disturbance; I16.0 Hypertensive urgency; R45.1 Restlessness and agitation; N18.6 End stage renal disease; I69.354 Hemiplegia and hemiparesis following cerebral infarction affecting left non-dominant side; H54.40 Blindness, one eye, unspecified eye; D63.1 Anemia in chronic kidney disease; D61.818 Other pancytopenia; D69.6 Thrombocytopenia, unspecified; R50.9 Fever, unspecified; N39.0 Urinary tract infection, site not specified; B96.20 Unspecified Escherichia coli [E. coli] as the cause of diseases classified elsewhere; Z99.2 Dependence on renal dialysis
CPT/HCPCS: 0241U-QW; 36415; 70450-TC; 71045-TC-FY; 80048; 80053; 80307; 81003; 82607; 82746; 82803; 82962; 83605; 83735; 84100; 84443; 84484; 85025; 85027; 85610; 85730; 86803; 86850; 86900; 86901; 87040; 87086; 87186; 87340; 93005; 93010; 99285-25; G0378; Q5106

== ENCOUNTER 2022-08-13 11:33 | Inpatient (IN) | payer OTHER ==
[2022-08-13 12:47] LABS: BASO % 0.5 % (0-2.0); EOS % 2.3 % (0-4.5); HEMATOCRIT 19.8 % (32.4-45.2); LYMPH % 16.3 % (8-40); MCH 29.2 pg (25.7-33.7); MEAN PLT VOLUME 7.5 fl (7.5-11.1); MONO % 9.8 % (3.8-10.2); NEUT % 71.1 % (42.8-82.8); PLATELET COUNT 133 10^3/uL (134-434); WHITE BLOOD COUNT 4.3 K/mm3 (4.0-10.0)
[2022-08-13 12:52] LABS: INR 1.24 (0.83-1.09); PROTHROMBIN TIME (PATIENT) 14.3 SEC (9.7-13.0)
[2022-08-13 12:53] LABS: HEMOGLOBIN 6.7 GM/dL (10.7-15.3)
[2022-08-13 12:55] LABS: ACTIVATED PTT 34.7 SECONDS (25.2-36.5)
[2022-08-13 13:01] LABS: MAGNESIUM 2.2 mg/dL (1.8-2.4)
[2022-08-13 13:03] LABS: POTASSIUM 5.3 mmol/L (3.5-5.1)
[2022-08-13 13:04] LABS: PHOSPHOROUS 5.4 mg/dL (2.5-4.9)
[2022-08-13 13:09] LABS: CALCIUM 8.4 mg/dL (8.5-10.1)
[2022-08-13 13:10] LABS: ALBUMIN 2.9 g/dl (3.4-5.0); BLOOD UREA NITROGEN 54.3 mg/dL (7-18)
[2022-08-13 13:13] LABS: CREATININE 7.3 mg/dL (0.55-1.3)
[2022-08-13 13:14] LABS: BILIRUBIN,TOTAL 0.6 mg/dL (0.2-1)
[2022-08-13 13:15] LABS: TOT PROT 5.6 g/dl (6.4-8.2)
[2022-08-13] MEDS ORDERED: SODIUM CHLORIDE 250 ML IV PRN (13:25)
[2022-08-13] MEDS ORDERED: EPOETIN ALFA-EPBX 20,000 UNIT/ML VIAL SQ ONE (13:25)
[2022-08-13] MEDS ORDERED: amLODIPine BESYLATE 10 MG TABLET (FP) PO ONE (14:04)
[2022-08-13] MEDS ORDERED: LOSARTAN POTASSIUM 50 MG TABLET PO ONE (14:04)
[2022-08-13] MEDS ORDERED: hydrALAZINE HCL 50 MG TABLET (FP) PO ONE (14:05)
[2022-08-13] MEDS ORDERED: LOSARTAN POTASSIUM 50 MG TABLET ONE (14:48)
[2022-08-13] MEDS ORDERED: hydrALAZINE HCL 50 MG TABLET (FP) ONE (14:48)
[2022-08-13] MEDS ORDERED: amLODIPine BESYLATE 10 MG TABLET (FP) ONE (14:48)
[2022-08-13] MEDS ORDERED: DOCUSATE SODIUM 100 MG CAPSULE (FP) PO PRN (15:26)
[2022-08-13] MEDS ORDERED: ACETAMINOPHEN 325 MG TABLET (FP) PO PRN (15:26)
[2022-08-13] MEDS: ATORVASTATIN CA 20 MG TABLET (FP) PO SCH (21:32)
[2022-08-13] MEDS: hydrALAZINE HCL 25 MG TABLET (FP) PO SCH (21:32)
[2022-08-13] MEDS: SEVELAMER CARBONATE 800 MG TAB (FP) PO SCH (21:32)
[2022-08-13 21:57] VITALS: BMI 18.4
[2022-08-13] MEDS: HALOPERIDOL 1 MG TABLET PO ONE ×2 (22:57→23:01)
[2022-08-13] MEDS ORDERED: HALOPERIDOL LACTATE 5 MG/ML IM ONE (23:41)
[2022-08-13] MEDS ORDERED: hydrALAZINE HCL 20 MG/ML VIAL IVPB ONE (23:43)
[2022-08-14] MEDS ORDERED: HALOPERIDOL LACTATE 5 MG/ML IM ONE (04:00)
[2022-08-14] MEDS ORDERED: hydrALAZINE HCL 20 MG/ML VIAL IVPB ONE (05:02)
[2022-08-14] MEDS: hydrALAZINE HCL 25 MG TABLET (FP) PO SCH ×4 (05:30→21:22)
[2022-08-14] MEDS: SEVELAMER CARBONATE 800 MG TAB (FP) PO SCH ×4 (10:01→16:55)
[2022-08-14] MEDS: ASPIRIN COATED 81 MG TABLET.EC PO SCH ×2 (10:01→10:13)
[2022-08-14] MEDS: amLODIPine BESYLATE 10 MG TABLET (FP) PO SCH ×3 (10:01→16:41)
[2022-08-14] MEDS: DONEPEZIL HCL 5 MG TABLET (FP) PO SCH ×2 (10:01→10:13)
[2022-08-14] MEDS: CINACALCET HCL 30 MG TAB (FP) PO SCH ×2 (10:04→10:14)
[2022-08-14] MEDS: LOSARTAN POTASSIUM 50 MG TABLET PO SCH ×3 (10:04→16:41)
[2022-08-14] MEDS ORDERED: SODIUM CHLORIDE 250 ML IV PRN (11:39)
[2022-08-14] MEDS: MIRTAZAPINE 15 MG TABLET (FP) PO SCH (21:22)
[2022-08-14] MEDS: ATORVASTATIN CA 20 MG TABLET (FP) PO SCH (21:23)
[2022-08-15] MEDS: hydrALAZINE HCL 25 MG TABLET (FP) PO SCH ×5 (05:27→21:35)
[2022-08-15] MEDS: amLODIPine BESYLATE 10 MG TABLET (FP) PO SCH ×2 (07:59→12:07)
[2022-08-15] MEDS: LOSARTAN POTASSIUM 50 MG TABLET PO SCH ×2 (08:00→12:07)
[2022-08-15] MEDS: SEVELAMER CARBONATE 800 MG TAB (FP) PO SCH ×3 (08:01→17:53)
[2022-08-15 09:03] LABS: HEMATOCRIT 25.3 % (32.4-45.2); HEMOGLOBIN 8.8 GM/dL (10.7-15.3); MCH 29.7 pg (25.7-33.7); MCHC 34.7 g/dl (32.0-36.0); MEAN CELL VOLUME 85.5 fl (80-96); MEAN PLT VOLUME 7.5 fl (7.5-11.1); PLATELET COUNT 157 10^3/uL (134-434); RBC 2.96 M/mm3 (3.60-5.2); RDW 15.7 % (11.6-15.6)
[2022-08-15 09:22] LABS: POTASSIUM 3.8 mmol/L (3.5-5.1)
[2022-08-15 09:25] LABS: CALCIUM 9.1 mg/dL (8.5-10.1)
[2022-08-15 09:26] LABS: BLOOD UREA NITROGEN 34.8 mg/dL (7-18)
[2022-08-15 09:29] LABS: CREATININE 5.6 mg/dL (0.55-1.3)
[2022-08-15] MEDS ORDERED: EPOETIN ALFA-EPBX 20,000 UNIT/ML VIAL SQ ONE (11:39)
[2022-08-15] MEDS: ASPIRIN COATED 81 MG TABLET.EC PO SCH (11:54)
[2022-08-15] MEDS: DONEPEZIL HCL 5 MG TABLET (FP) PO SCH (11:54)
[2022-08-15] MEDS: CINACALCET HCL 30 MG TAB (FP) PO SCH (11:55)
[2022-08-15] MEDS: MIRTAZAPINE 15 MG TABLET (FP) PO SCH (21:35)
[2022-08-15] MEDS: ATORVASTATIN CA 20 MG TABLET (FP) PO SCH (21:35)
[2022-08-16] MEDS: hydrALAZINE HCL 25 MG TABLET (FP) PO SCH ×4 (05:28→21:38)
[2022-08-16] MEDS: SEVELAMER CARBONATE 800 MG TAB (FP) PO SCH ×3 (09:27→18:05)
[2022-08-16 09:30] LABS: BASO % 0.6 % (0-2.0); HEMATOCRIT 28.5 % (32.4-45.2); HEMOGLOBIN 9.9 GM/dL (10.7-15.3); MCH 29.8 pg (25.7-33.7); MCHC 34.6 g/dl (32.0-36.0); MEAN CELL VOLUME 86.1 fl (80-96); MEAN PLT VOLUME 7.8 fl (7.5-11.1); MONO % 14.6 % (3.8-10.2); NEUT % 58.8 % (42.8-82.8); PLATELET COUNT 160 10^3/uL (134-434); RBC 3.31 M/mm3 (3.60-5.2); RDW 15.6 % (11.6-15.6)
[2022-08-16 09:50] LABS: POTASSIUM 3.8 mmol/L (3.5-5.1)
[2022-08-16 09:52] LABS: CALCIUM 9.8 mg/dL (8.5-10.1)
[2022-08-16 09:57] LABS: BILIRUBIN,TOTAL 0.8 mg/dL (0.2-1); TOT PROT 6.1 g/dl (6.4-8.2)
[2022-08-16] MEDS: LOSARTAN POTASSIUM 50 MG TABLET PO SCH (10:37)
[2022-08-16] MEDS: CINACALCET HCL 30 MG TAB (FP) PO SCH ×2 (10:38→10:47)
[2022-08-16] MEDS: DONEPEZIL HCL 5 MG TABLET (FP) PO SCH ×2 (10:38→10:48)
[2022-08-16] MEDS: ASPIRIN COATED 81 MG TABLET.EC PO SCH ×2 (10:38→10:48)
[2022-08-16] MEDS: amLODIPine BESYLATE 10 MG TABLET (FP) PO SCH (10:38)
[2022-08-16] MEDS: ATORVASTATIN CA 20 MG TABLET (FP) PO SCH (21:36)
[2022-08-16] MEDS: MIRTAZAPINE 15 MG TABLET (FP) PO SCH (21:36)
[2022-08-17] MEDS: hydrALAZINE HCL 25 MG TABLET (FP) PO SCH (06:11)
[2022-08-17] MEDS: hydrALAZINE HCL 50 MG TABLET (FP) PO SCH ×3 (07:58→22:00)
[2022-08-17] MEDS ORDERED: EPOETIN ALFA-EPBX 20,000 UNIT/ML VIAL IVPUSH ONE (08:00)
[2022-08-17] MEDS ORDERED: SODIUM CHLORIDE 250 ML IV PRN (08:00)
[2022-08-17] MEDS ORDERED: hydrALAZINE HCL 20 MG/ML VIAL IVPUSH ONE (08:45)
[2022-08-17] MEDS: SEVELAMER CARBONATE 800 MG TAB (FP) PO SCH ×3 (08:54→18:31)
[2022-08-17] MEDS: DONEPEZIL HCL 5 MG TABLET (FP) PO SCH (09:24)
[2022-08-17] MEDS: ASPIRIN COATED 81 MG TABLET.EC PO SCH (09:25)
[2022-08-17] MEDS: LOSARTAN POTASSIUM 50 MG TABLET PO SCH ×2 (09:25→11:37)
[2022-08-17] MEDS: CINACALCET HCL 30 MG TAB (FP) PO SCH (09:25)
[2022-08-17] MEDS: amLODIPine BESYLATE 10 MG TABLET (FP) PO SCH ×2 (09:25→11:38)
[2022-08-17] MEDS ORDERED: cloNIDine-TTS 0.3 MG /24 HRS PATCH.TDWK TD SCH (10:00)
[2022-08-17 14:11] LABS: HEMATOCRIT 28.8 % (32.4-45.2); HEMOGLOBIN 9.8 GM/dL (10.7-15.3); MCH 29.8 pg (25.7-33.7); MEAN CELL VOLUME 87.4 fl (80-96); MEAN PLT VOLUME 8.1 fl (7.5-11.1); PLATELET COUNT 138 10^3/uL (134-434); RBC 3.29 M/mm3 (3.60-5.2); RDW 15.9 % (11.6-15.6); WHITE BLOOD COUNT 3.5 K/mm3 (4.0-10.0)
[2022-08-17 14:48] LABS: POTASSIUM 4.1 mmol/L (3.5-5.1)
[2022-08-17 14:49] LABS: CALCIUM 9.7 mg/dL (8.5-10.1)
[2022-08-17 14:50] LABS: BLOOD UREA NITROGEN 36.7 mg/dL (7-18)
[2022-08-17 14:52] LABS: CREATININE 6.4 mg/dL (0.55-1.3)
[2022-08-17] MEDS: ATORVASTATIN CA 20 MG TABLET (FP) PO SCH (22:00)
[2022-08-17] MEDS: MIRTAZAPINE 15 MG TABLET (FP) PO SCH (22:00)
[2022-08-18] MEDS: hydrALAZINE HCL 50 MG TABLET (FP) PO SCH ×3 (07:19→21:24)
[2022-08-18] MEDS: CINACALCET HCL 30 MG TAB (FP) PO SCH (09:05)
[2022-08-18] MEDS: DONEPEZIL HCL 5 MG TABLET (FP) PO SCH (09:05)
[2022-08-18] MEDS: LOSARTAN POTASSIUM 50 MG TABLET PO SCH (09:05)
[2022-08-18] MEDS: amLODIPine BESYLATE 10 MG TABLET (FP) PO SCH (09:05)
[2022-08-18] MEDS: SEVELAMER CARBONATE 800 MG TAB (FP) PO SCH ×3 (09:19→17:32)
[2022-08-18] MEDS: ASPIRIN COATED 81 MG TABLET.EC PO SCH (10:54)
[2022-08-18] MEDS: ATORVASTATIN CA 20 MG TABLET (FP) PO SCH (21:25)
[2022-08-18] MEDS: MIRTAZAPINE 15 MG TABLET (FP) PO SCH (21:25)
[2022-08-19] MEDS: hydrALAZINE HCL 50 MG TABLET (FP) PO SCH ×2 (05:20→05:31)
[2022-08-19 08:55] VITALS: BP 141/75; PULSE 97; RESP 17; TEMP 98.4
[2022-08-19] MEDS: amLODIPine BESYLATE 10 MG TABLET (FP) PO SCH (09:37)
[2022-08-19] MEDS: LOSARTAN POTASSIUM 50 MG TABLET PO SCH (09:37)
[2022-08-19] MEDS: CINACALCET HCL 30 MG TAB (FP) PO SCH (09:37)
[2022-08-19] MEDS: DONEPEZIL HCL 5 MG TABLET (FP) PO SCH (09:37)
[2022-08-19] MEDS: SEVELAMER CARBONATE 800 MG TAB (FP) PO SCH (09:37)
[2022-08-19] MEDS: ASPIRIN COATED 81 MG TABLET.EC PO SCH (09:37)
[2022-08-20] MEDS ORDERED: cloNIDine-TTS 0.2 MG/24 HOURS PATCH.TDWK TD SCH (10:00)
== END 2022-08-19 12:50 | disposition home health service (06) | DRG 470 ==
LOC: JER 11:33 → JERBED 13:18 → J5S 20:41 → OBSVTOIN 08-16 14:15
PROVIDERS: ADMIT Family Medicine; ATTEND Family Medicine
PROC: 5A1D70Z Performance of Urinary Filtration, Intermittent, Less than 6 Hours Per Day (ICD-10-PCS; principal; 2022-08-13)
PROC: 30233N1 Transfusion of Nonautologous Red Blood Cells into Peripheral Vein, Percutaneous Approach (ICD-10-PCS; 2022-08-13)
PROC: 5A1D70Z Performance of Urinary Filtration, Intermittent, Less than 6 Hours Per Day (ICD-10-PCS; 2022-08-14)
PROC: 5A1D70Z Performance of Urinary Filtration, Intermittent, Less than 6 Hours Per Day (ICD-10-PCS; 2022-08-16)
DX: I12.0 Hypertensive chronic kidney disease with stage 5 chronic kidney disease or end stage renal disease (principal); I69.354 Hemiplegia and hemiparesis following cerebral infarction affecting left non-dominant side; N18.6 End stage renal disease; Z99.2 Dependence on renal dialysis; D64.9 Anemia, unspecified; F03.90 Unspecified dementia, unspecified severity, without behavioral disturbance, psychotic disturbance, mood disturbance, and anxiety; R64 Cachexia; Z68.1 Body mass index [BMI] 19.9 or less, adult; F03.911 Unspecified dementia, unspecified severity, with agitation; F32.A Depression, unspecified
CPT/HCPCS: 36415; 36430; 71045-TC-FY; 80048; 80053; 82272; 82962; 83735; 84100; 84484; 85025; 85027; 85610; 85730; 86803; 86850; 86900; 86901; 86922; 87340; 93005; 93010; 97161-GP; 99285-25; C9803-CS; G0378; P9058; U0003; U0005

== ENCOUNTER 2022-09-20 12:23 | Inpatient (IN) | payer OTHER ==
[2022-09-20 12:42] VITALS: BMI 17.2
[2022-09-20] MEDS ORDERED: LABETALOL HCL 200 MG TABLET (FP) PO ONE (15:23)
[2022-09-20] MEDS ORDERED: cloNIDine HCL 0.1 MG TABLET PO ONE (15:23)
[2022-09-20] MEDS ORDERED: LABETALOL HCL 200 MG TABLET (FP) ONE (15:43)
[2022-09-20] MEDS ORDERED: cloNIDine HCL 0.1 MG TABLET ONE (15:43)
[2022-09-20] MEDS ORDERED: LABETALOL HCL 20 MG/4 ML VIAL ONE ×2 (15:52→20:17)
[2022-09-20] MEDS ORDERED: LABETALOL HCL 5 MG/1 ML (100MG/20 ML VIAL) IVPUSH ONE ×2 (16:10→20:08)
[2022-09-20] MEDS ORDERED: hydrALAZINE HCL 20 MG/ML VIAL IVPUSH ONE ×2 (18:24→22:50)
[2022-09-20] MEDS ORDERED: hydrALAZINE HCL 20 MG/ML VIAL ONE ×2 (18:28→23:41)
[2022-09-20] MEDS ORDERED: MIDAZOLAM HCL 2 MG/2 ML SINGLE DOSE VIAL IVPUSH ONE (19:17)
[2022-09-20] MEDS ORDERED: MIDAZOLAM HCL 2 MG/2 ML SINGLE DOSE VIAL ONE (19:22)
[2022-09-20] MEDS ORDERED: HALOPERIDOL LACTATE 5 MG/ML IM ONE ×2 (20:10→20:17)
[2022-09-20 20:57] LABS: BASO % 0.4 % (0-2.0); EOS % 1.9 % (0-4.5); HEMATOCRIT 37.3 % (32.4-45.2); HEMOGLOBIN 11.8 GM/dL (10.7-15.3); MCHC 31.5 g/dl (32.0-36.0); MEAN CELL VOLUME 88.8 fl (80-96); MEAN PLT VOLUME 7.6 fl (7.5-11.1); MONO % 10.4 % (3.8-10.2); NEUT % 67.3 % (42.8-82.8); PLATELET COUNT 202 10^3/uL (134-434); RBC 4.21 M/mm3 (3.60-5.2); RDW 17.6 % (11.6-15.6)
[2022-09-20 21:18] LABS: POTASSIUM 4.3 mmol/L (3.5-5.1)
[2022-09-20 21:20] LABS: ALBUMIN 3.2 g/dl (3.4-5.0); BLOOD UREA NITROGEN 32.3 mg/dL (7-18); CALCIUM 9.6 mg/dL (8.5-10.1)
[2022-09-20 21:23] LABS: CREATININE 4.4 mg/dL (0.55-1.3)
[2022-09-20 21:25] LABS: BILIRUBIN,TOTAL 0.4 mg/dL (0.2-1); TOT PROT 6.6 g/dl (6.4-8.2)
[2022-09-21] MEDS ORDERED: cloNIDine-TTS 0.2 MG/24 HOURS PATCH.TDWK TD ONE (00:29)
[2022-09-21] MEDS ORDERED: hydrALAZINE HCL 20 MG/ML VIAL IVPUSH ONE ×2 (01:18→06:37)
[2022-09-21] MEDS ORDERED: NITROGLYCERIN 2% OINTMENT - 1GM PACKET TD ONE (01:32)
[2022-09-21] MEDS ORDERED: hydrALAZINE HCL 20 MG/ML VIAL ONE (01:48)
[2022-09-21] MEDS: LOSARTAN POTASSIUM 50 MG TABLET PO SCH ×2 (10:40→11:21)
[2022-09-21] MEDS: amLODIPine BESYLATE 10 MG TABLET (FP) PO SCH ×2 (10:40→11:21)
[2022-09-21] MEDS: ASPIRIN COATED 81 MG TABLET.EC PO SCH ×2 (10:40→11:21)
[2022-09-21] MEDS ORDERED: SODIUM CHLORIDE 250 ML IV PRN (11:17)
[2022-09-21] MEDS: SEVELAMER CARBONATE 800 MG TAB (FP) PO SCH ×2 (12:01→17:36)
[2022-09-21] MEDS: hydrALAZINE HCL 50 MG TABLET (FP) PO SCH ×2 (15:26→23:06)
[2022-09-21] MEDS: DOCUSATE SODIUM 100 MG CAPSULE (FP) PO SCH ×2 (15:29→23:07)
[2022-09-21] MEDS: hydrALAZINE HCL 20 MG/ML VIAL IVPUSH PRN (16:35)
[2022-09-21] MEDS: DONEPEZIL HCL 5 MG TABLET (FP) PO SCH (17:36)
[2022-09-21] MEDS: MIRTAZAPINE 15 MG TABLET (FP) PO SCH (23:06)
[2022-09-21] MEDS: ATORVASTATIN CA 20 MG TABLET (FP) PO SCH (23:07)
[2022-09-21] MEDS: CINACALCET HCL 30 MG TAB (FP) PO SCH (23:07)
[2022-09-22] MEDS: hydrALAZINE HCL 20 MG/ML VIAL IVPUSH PRN ×2 (01:21→20:08)
[2022-09-22] MEDS ORDERED: HALOPERIDOL LACTATE 5 MG/ML IM ONE ×2 (01:50→22:59)
[2022-09-22] MEDS ORDERED: amLODIPine BESYLATE 10 MG TABLET (FP) PO ONE (05:00)
[2022-09-22] MEDS ORDERED: NIFEdipine E.R 60 MG TABLET PO SCH ×2 (05:22→10:00)
[2022-09-22] MEDS: hydrALAZINE HCL 50 MG TABLET (FP) PO SCH ×3 (05:48→22:11)
[2022-09-22] MEDS: DOCUSATE SODIUM 100 MG CAPSULE (FP) PO SCH ×3 (05:48→22:12)
[2022-09-22] MEDS ORDERED: NITROGLYCERIN 2% OINTMENT - 1GM PACKET TD ONE ×3 (05:51→22:59)
[2022-09-22] MEDS ORDERED: TRIMETHOBENZAMIDE HCL 200MG/2ML INJ IM PRN (06:33)
[2022-09-22] MEDS: SEVELAMER CARBONATE 800 MG TAB (FP) PO SCH ×3 (08:58→17:36)
[2022-09-22] MEDS: LOSARTAN POTASSIUM 50 MG TABLET PO SCH (09:00)
[2022-09-22] MEDS: ASPIRIN COATED 81 MG TABLET.EC PO SCH (09:18)
[2022-09-22] MEDS ORDERED: SODIUM CHLORIDE 250 ML IV PRN (12:56)
[2022-09-22] MEDS: DONEPEZIL HCL 5 MG TABLET (FP) PO SCH (17:36)
[2022-09-22] MEDS: CINACALCET HCL 30 MG TAB (FP) PO SCH (22:00)
[2022-09-22] MEDS: ATORVASTATIN CA 20 MG TABLET (FP) PO SCH (22:12)
[2022-09-22] MEDS: MIRTAZAPINE 15 MG TABLET (FP) PO SCH (22:12)
[2022-09-22] MEDS ORDERED: ACETAMINOPHEN 1000 MG/100 ML BAG IVPB ONE (22:58)
[2022-09-23] MEDS ORDERED: LABETALOL HCL 5 MG/1 ML (100MG/20 ML VIAL) IVPUSH ONE ×2 (01:32→04:18)
[2022-09-23] MEDS: hydrALAZINE HCL 20 MG/ML VIAL IVPUSH PRN ×3 (02:57→22:27)
[2022-09-23] MEDS: DOCUSATE SODIUM 100 MG CAPSULE (FP) PO SCH ×3 (05:46→22:09)
[2022-09-23] MEDS: hydrALAZINE HCL 50 MG TABLET (FP) PO SCH ×3 (05:46→22:08)
[2022-09-23] MEDS ORDERED: NIFEdipine E.R. 30 MG TABLET PO SCH (06:15)
[2022-09-23] MEDS ORDERED: hydrALAZINE HCL 20 MG/ML VIAL IVPB ONE (06:15)
[2022-09-23] MEDS ORDERED: NITROGLYCERIN 2% OINTMENT - 1GM PACKET TD ONE (06:15)
[2022-09-23 08:03] LABS: BASO % 0.4 % (0-2.0); EOS % 0.9 % (0-4.5); HEMATOCRIT 40.2 % (32.4-45.2); HEMOGLOBIN 13.3 GM/dL (10.7-15.3); LYMPH % 13.8 % (8-40); MCH 28.6 pg (25.7-33.7); MCHC 33.1 g/dl (32.0-36.0); MEAN CELL VOLUME 86.6 fl (80-96); MEAN PLT VOLUME 7.8 fl (7.5-11.1); MONO % 8.5 % (3.8-10.2); NEUT % 76.4 % (42.8-82.8); PLATELET COUNT 172 10^3/uL (134-434); RBC 4.65 M/mm3 (3.60-5.2); RDW 18.5 % (11.6-15.6); WHITE BLOOD COUNT 4.8 K/mm3 (4.0-10.0)
[2022-09-23 08:22] LABS: ALBUMIN 3.5 g/dl (3.4-5.0); BLOOD UREA NITROGEN 39.3 mg/dL (7-18); CALCIUM 9.8 mg/dL (8.5-10.1)
[2022-09-23 08:25] LABS: CREATININE 6.2 mg/dL (0.55-1.3)
[2022-09-23 08:27] LABS: BILIRUBIN,TOTAL 0.7 mg/dL (0.2-1); TOT PROT 6.6 g/dl (6.4-8.2)
[2022-09-23] MEDS: SEVELAMER CARBONATE 800 MG TAB (FP) PO SCH ×3 (09:45→17:08)
[2022-09-23] MEDS ORDERED: amLODIPine BESYLATE 10 MG TABLET (FP) PO SCH (10:00)
[2022-09-23] MEDS: LOSARTAN POTASSIUM 50 MG TABLET PO SCH (12:29)
[2022-09-23] MEDS: ASPIRIN COATED 81 MG TABLET.EC PO SCH (13:01)
[2022-09-23] MEDS: NIFEdipine E.R. 30 MG TABLET PO SCH (13:01)
[2022-09-23] MEDS ORDERED: LABETALOL HCL 20 MG/4 ML VIAL IVPUSH ONE (17:02)
[2022-09-23] MEDS: DONEPEZIL HCL 5 MG TABLET (FP) PO SCH (17:08)
[2022-09-23] MEDS: CINACALCET HCL 30 MG TAB (FP) PO SCH (22:08)
[2022-09-23] MEDS: MIRTAZAPINE 15 MG TABLET (FP) PO SCH (22:08)
[2022-09-23] MEDS: ATORVASTATIN CA 20 MG TABLET (FP) PO SCH (22:09)
[2022-09-24] MEDS: hydrALAZINE HCL 20 MG/ML VIAL IVPUSH PRN ×3 (04:35→22:07)
[2022-09-24] MEDS: hydrALAZINE HCL 50 MG TABLET (FP) PO SCH ×3 (06:01→21:14)
[2022-09-24] MEDS: DOCUSATE SODIUM 100 MG CAPSULE (FP) PO SCH ×3 (06:02→21:15)
[2022-09-24] MEDS: LOSARTAN POTASSIUM 50 MG TABLET PO SCH (09:18)
[2022-09-24] MEDS: SEVELAMER CARBONATE 800 MG TAB (FP) PO SCH ×3 (09:18→17:26)
[2022-09-24] MEDS: ASPIRIN COATED 81 MG TABLET.EC PO SCH (09:18)
[2022-09-24] MEDS: NIFEdipine E.R. 30 MG TABLET PO SCH (09:19)
[2022-09-24] MEDS ORDERED: SODIUM CHLORIDE 250 ML IV PRN (12:18)
[2022-09-24] MEDS: DONEPEZIL HCL 5 MG TABLET (FP) PO SCH (17:26)
[2022-09-24] MEDS: ATORVASTATIN CA 20 MG TABLET (FP) PO SCH (21:14)
[2022-09-24] MEDS: MIRTAZAPINE 15 MG TABLET (FP) PO SCH (21:14)
[2022-09-24] MEDS: CINACALCET HCL 30 MG TAB (FP) PO SCH (21:15)
[2022-09-25] MEDS: hydrALAZINE HCL 20 MG/ML VIAL IVPUSH PRN (04:14)
[2022-09-25] MEDS: DOCUSATE SODIUM 100 MG CAPSULE (FP) PO SCH ×3 (05:52→21:17)
[2022-09-25] MEDS: hydrALAZINE HCL 50 MG TABLET (FP) PO SCH ×3 (05:52→21:17)
[2022-09-25] MEDS: SEVELAMER CARBONATE 800 MG TAB (FP) PO SCH ×3 (09:09→21:14)
[2022-09-25] MEDS: NIFEdipine E.R. 30 MG TABLET PO SCH ×2 (09:10→12:20)
[2022-09-25] MEDS: LOSARTAN POTASSIUM 50 MG TABLET PO SCH ×2 (09:10→12:10)
[2022-09-25] MEDS: ASPIRIN COATED 81 MG TABLET.EC PO SCH ×2 (09:10→12:20)
[2022-09-25] MEDS: DONEPEZIL HCL 5 MG TABLET (FP) PO SCH (21:14)
[2022-09-25] MEDS: MIRTAZAPINE 15 MG TABLET (FP) PO SCH (21:17)
[2022-09-25] MEDS: ATORVASTATIN CA 20 MG TABLET (FP) PO SCH (21:17)
[2022-09-25] MEDS: CINACALCET HCL 30 MG TAB (FP) PO SCH (21:18)
[2022-09-26] MEDS: DOCUSATE SODIUM 100 MG CAPSULE (FP) PO SCH ×3 (05:50→22:20)
[2022-09-26] MEDS: hydrALAZINE HCL 50 MG TABLET (FP) PO SCH ×4 (05:50→22:20)
[2022-09-26] MEDS: SEVELAMER CARBONATE 800 MG TAB (FP) PO SCH ×3 (09:29→17:06)
[2022-09-26] MEDS: ASPIRIN COATED 81 MG TABLET.EC PO SCH (09:45)
[2022-09-26] MEDS: NIFEdipine E.R. 30 MG TABLET PO SCH (09:45)
[2022-09-26] MEDS: LOSARTAN POTASSIUM 50 MG TABLET PO SCH (11:23)
[2022-09-26] MEDS: DONEPEZIL HCL 5 MG TABLET (FP) PO SCH (17:12)
[2022-09-26] MEDS: MIRTAZAPINE 15 MG TABLET (FP) PO SCH (22:22)
[2022-09-26] MEDS: CINACALCET HCL 30 MG TAB (FP) PO SCH (22:22)
[2022-09-26] MEDS: ATORVASTATIN CA 20 MG TABLET (FP) PO SCH (22:22)
[2022-09-27] MEDS: hydrALAZINE HCL 50 MG TABLET (FP) PO SCH ×2 (06:25→17:05)
[2022-09-27] MEDS: DOCUSATE SODIUM 100 MG CAPSULE (FP) PO SCH ×2 (06:25→17:05)
[2022-09-27] MEDS ORDERED: cloNIDine-TTS 0.2 MG/24 HOURS PATCH.TDWK TD ONE (10:00)
[2022-09-27] MEDS: LOSARTAN POTASSIUM 50 MG TABLET PO SCH (11:00)
[2022-09-27] MEDS: NIFEdipine E.R. 30 MG TABLET PO SCH (11:00)
[2022-09-27] MEDS: SEVELAMER CARBONATE 800 MG TAB (FP) PO SCH ×3 (11:00→17:24)
[2022-09-27] MEDS: ASPIRIN COATED 81 MG TABLET.EC PO SCH (11:00)
[2022-09-27] MEDS ORDERED: SODIUM CHLORIDE 250 ML IV PRN (12:00)
[2022-09-27 14:21] LABS: HEMATOCRIT 43.4 % (32.4-45.2); HEMOGLOBIN 13.7 GM/dL (10.7-15.3); MCH 27.7 pg (25.7-33.7); MCHC 31.7 g/dl (32.0-36.0); MEAN CELL VOLUME 87.4 fl (80-96); MEAN PLT VOLUME 8.5 fl (7.5-11.1); PLATELET COUNT 138 10^3/uL (134-434); RBC 4.96 M/mm3 (3.60-5.2); RDW 16.9 % (11.6-15.6); WHITE BLOOD COUNT 5.5 K/mm3 (4.0-10.0)
[2022-09-27 14:27] VITALS: RESP 18
[2022-09-27 14:42] LABS: CHLORIDE 96 mmol/L (98-107); POTASSIUM 4.4 mmol/L (3.5-5.1); SODIUM 139 mmol/L (136-145)
[2022-09-27 14:44] LABS: CALCIUM 10.1 mg/dL (8.5-10.1)
[2022-09-27 14:46] LABS: ANION GAP 16 MMOL/L (8-16); CO2 27 mmol/L (21-32); GLUCOSE,RANDOM 217 mg/dL (74-106)
[2022-09-27 14:53] LABS: BLOOD UREA NITROGEN 75.8 mg/dL (7-18); CREATININE 8.4 mg/dL (0.55-1.3)
[2022-09-27] MEDS: DONEPEZIL HCL 5 MG TABLET (FP) PO SCH (17:25)
[2022-09-27 17:49] VITALS: BP 161/81; PULSE 100; TEMP 97.9
[2022-09-28] MEDS ORDERED: cloNIDine-TTS 0.2 MG/24 HOURS PATCH.TDWK TD SCH (10:00)
== END 2022-09-27 20:11 | disposition home or self-care (01) | DRG 470 ==
LOC: JER 12:23 → JERBED 21:25 → J4S 09-21 02:24 → OBSVTOIN 09-23 16:23
PROVIDERS: ADMIT Internal Medicine; ATTEND Family Medicine
PROC: 5A1D70Z Performance of Urinary Filtration, Intermittent, Less than 6 Hours Per Day (ICD-10-PCS; principal; 2022-09-27)
DX: I12.0 Hypertensive chronic kidney disease with stage 5 chronic kidney disease or end stage renal disease (principal); F03.911 Unspecified dementia, unspecified severity, with agitation; N18.6 End stage renal disease; E44.0 Moderate protein-calorie malnutrition; I16.0 Hypertensive urgency; Z68.1 Body mass index [BMI] 19.9 or less, adult; I69.354 Hemiplegia and hemiparesis following cerebral infarction affecting left non-dominant side; Z99.2 Dependence on renal dialysis; R64 Cachexia; Z91.148 Patient's other noncompliance with medication regimen for other reason
CPT/HCPCS: 36415; 71045-TC-FY; 80048; 80053; 82962; 84484; 85025; 85027; 86803; 87340; 93005; 93010; 99285-25; G0378

== ENCOUNTER 2022-10-01 06:23 | Observation (INO) | payer OTHER ==
[2022-10-01] MEDS ORDERED: HALOPERIDOL LACTATE 5 MG/ML IM ONE ×2 (08:09→08:19)
[2022-10-01 08:57] LABS: BASO % 0.7 % (0-2.0); EOS % 1.5 % (0-4.5); HEMATOCRIT 45.9 % (32.4-45.2); HEMOGLOBIN 14.5 GM/dL (10.7-15.3); LYMPH % 17.9 % (8-40); MCH 27.4 pg (25.7-33.7); MCHC 31.6 g/dl (32.0-36.0); MEAN CELL VOLUME 86.6 fl (80-96); MEAN PLT VOLUME 9.1 fl (7.5-11.1); MONO % 10.2 % (3.8-10.2); NEUT % 69.7 % (42.8-82.8); PLATELET COUNT 166 10^3/uL (134-434); RDW 16.2 % (11.6-15.6); WHITE BLOOD COUNT 5.8 K/mm3 (4.0-10.0)
[2022-10-01 08:59] LABS: VENOUS BASE EXCESS -5.9 mmol/L (-2-2); VENOUS O2 SATURATION 81.8 % (70-80); VENOUS PCO2 34.1 mmHg (38-52); VENOUS PH 7.354 (7.310-7.410)
[2022-10-01] MEDS ORDERED: LORazepam 2 MG/ML SDV VIAL IVPB ONE (09:00)
[2022-10-01 09:02] LABS: EPI CELLS 5 /uL (0-25.1); HYALINE CASTS 0 /uL (0-3.1); URINE APPEARANCE CLEAR; URINE BACTERIA 5 /uL (0-1359); URINE BILIRUBIN NEGATIVE (NEGATIVE); URINE COLOR YELLOW; URINE GLUCOSE (UA) 1+ (NEGATIVE); URINE KETONE NEGATIVE (NEGATIVE); URINE LEUK ESTERASE NEGATIVE (NEGATIVE); URINE NITRITE NEGATIVE (NEGATIVE); URINE PROTEIN 3+ (NEGATIVE); URINE UROBILINOGEN 0.2 mg/dL (0.2-1.0); URINE WBC 2 /uL (0-25.8)
[2022-10-01 09:03] LABS: INR 1.13 (0.83-1.09); PROTHROMBIN TIME (PATIENT) 13.1 SEC (9.7-13.0)
[2022-10-01 09:05] LABS: ACTIVATED PTT 33.8 SECONDS (25.2-36.5)
[2022-10-01] MEDS ORDERED: SODIUM CHLORIDE 0.9% 500 ML INFUS.BAG IV ONE (09:06)
[2022-10-01 09:10] LABS: CHLORIDE 95 mmol/L (98-107); SODIUM 134 mmol/L (136-145)
[2022-10-01 09:12] LABS: CALCIUM 8.8 mg/dL (8.5-10.1)
[2022-10-01 09:13] LABS: ALBUMIN 3.6 g/dl (3.4-5.0); CO2 19 mmol/L (21-32); GLUCOSE,RANDOM 140 mg/dL (74-106)
[2022-10-01 09:16] LABS: SGOT/AST 11 U/L (15-37); SGPT/ALT 11 U/L (13-61)
[2022-10-01 09:18] LABS: BILIRUBIN,TOTAL 0.5 mg/dL (0.2-1)
[2022-10-01 09:19] LABS: ALK PHOS 116 U/L (45-117)
[2022-10-01 09:20] LABS: LACTIC ACID 2.2 mmol/L (0.4-2.0)
[2022-10-01 09:23] LABS: ANION GAP 20 MMOL/L (8-16); BLOOD UREA NITROGEN 108.9 mg/dL (7-18); CREATININE 11.4 mg/dL (0.55-1.3); POTASSIUM 6.4 mmol/L (3.5-5.1)
[2022-10-01] MEDS ORDERED: CALCIUM CHLORIDE 10% 1 GM/10 ML *VIAL IVPUSH ONE (09:29)
[2022-10-01] MEDS ORDERED: INSULIN REGULAR HUMAN 100 UNITS/ML *VIAL IVPUSH ONE (09:30)
[2022-10-01] MEDS ORDERED: DEXTROSE 50%-WATER - 25 GM/50 ML VIAL IVPUSH ONE (09:34)
[2022-10-01] MEDS ORDERED: CALCIUM GLUCONATE 10% - 1,000 MG/10 ML VIAL ONE (09:34)
[2022-10-01] MEDS ORDERED: DEXTROSE 50%-WATER 25 GM/50 ML DISP.SYRIN ONE (09:34)
[2022-10-01] MEDS ORDERED: INSULIN REGULAR HUMAN 100 UNITS/ML *VIAL ONE (09:35)
[2022-10-01] MEDS ORDERED: INSULIN REGULAR HUMAN 100 UNITS/ML *VIAL SQ ONE (09:39)
[2022-10-01] MEDS ORDERED: SODIUM CHLORIDE 250 ML IV PRN (09:45)
[2022-10-01 10:20] LABS: MAGNESIUM 2.4 mg/dL (1.8-2.4)
[2022-10-01] MEDS ORDERED: FENTANYL PATCH WASTE TD PRN (12:06)
[2022-10-01 12:10] LABS: URINE RBC 74.8 /uL (0-23.9)
[2022-10-01] MEDS ORDERED: fentaNYL 12mcg/hr PATCH.TD72 ONE (15:01)
[2022-10-01] MEDS: fentaNYL 12mcg/hr PATCH.TD72 TD SCH (15:05)
[2022-10-02] MEDS: QUEtiapine FUMARATE 25 MG TABLET PO SCH ×3 (01:42→23:06)
[2022-10-02 09:37] LABS: POTASSIUM 4.7 mmol/L (3.5-5.1)
[2022-10-02 09:46] LABS: CALCIUM 9.5 mg/dL (8.5-10.1)
[2022-10-02 09:49] LABS: CREATININE 6.4 mg/dL (0.55-1.3)
[2022-10-02 10:42] LABS: BLOOD UREA NITROGEN 42.7 mg/dL (7-18)
[2022-10-02] MEDS ORDERED: SODIUM CHLORIDE 250 ML IV PRN (11:50)
[2022-10-02 16:59] VITALS: RESP 18
[2022-10-02] MEDS: hydrALAZINE HCL 50 MG TABLET (FP) PO SCH ×2 (18:23→23:07)
[2022-10-02] MEDS: LOSARTAN POTASSIUM 50 MG TABLET PO SCH (18:23)
[2022-10-02] MEDS: NIFEdipine E.R. 90 MG TABLET PO SCH (18:23)
[2022-10-03] MEDS: hydrALAZINE HCL 50 MG TABLET (FP) PO SCH ×3 (05:33→21:35)
[2022-10-03 10:55] LABS: BASO % 0.6 % (0-2.0); EOS % 1.4 % (0-4.5); HEMATOCRIT 41.9 % (32.4-45.2); HEMOGLOBIN 13.1 GM/dL (10.7-15.3); LYMPH % 20.3 % (8-40); MCHC 31.3 g/dl (32.0-36.0); MEAN CELL VOLUME 86.3 fl (80-96); MEAN PLT VOLUME 8.7 fl (7.5-11.1); MONO % 9.3 % (3.8-10.2); NEUT % 68.4 % (42.8-82.8); PLATELET COUNT 179 10^3/uL (134-434); RBC 4.86 M/mm3 (3.60-5.2); RDW 16.2 % (11.6-15.6); WHITE BLOOD COUNT 5.8 K/mm3 (4.0-10.0)
[2022-10-03 11:16] LABS: CALCIUM 9.8 mg/dL (8.5-10.1); CHLORIDE 100 mmol/L (98-107); POTASSIUM 4.5 mmol/L (3.5-5.1); SODIUM 141 mmol/L (136-145)
[2022-10-03 11:17] LABS: ANION GAP 14 MMOL/L (8-16); BLOOD UREA NITROGEN 54.9 mg/dL (7-18); CO2 28 mmol/L (21-32); GLUCOSE,RANDOM 129 mg/dL (74-106)
[2022-10-03 11:21] LABS: CREATININE 7.7 mg/dL (0.55-1.3)
[2022-10-03] MEDS: QUEtiapine FUMARATE 25 MG TABLET PO SCH ×2 (13:55→21:34)
[2022-10-03] MEDS: LOSARTAN POTASSIUM 50 MG TABLET PO SCH (13:55)
[2022-10-03] MEDS: NIFEdipine E.R. 90 MG TABLET PO SCH (13:55)
[2022-10-03 16:10] VITALS: BMI 16.9
[2022-10-04] MEDS: hydrALAZINE HCL 50 MG TABLET (FP) PO SCH ×3 (05:35→13:12)
[2022-10-04] MEDS: QUEtiapine FUMARATE 25 MG TABLET PO SCH (09:41)
[2022-10-04] MEDS: LOSARTAN POTASSIUM 50 MG TABLET PO SCH (09:41)
[2022-10-04] MEDS: NIFEdipine E.R. 90 MG TABLET PO SCH (09:42)
[2022-10-04 10:41] VITALS: BP 164/85; PULSE 109; TEMP 98.3
[2022-10-04] MEDS: fentaNYL 12mcg/hr PATCH.TD72 TD SCH (13:03)
[2022-10-10] MEDS ORDERED: cloNIDine-TTS 0.2 MG/24 HOURS PATCH.TDWK TD SCH (10:00)
== END 2022-10-04 14:26 | disposition home or self-care (01) ==
LOC: JER 06:23 → JERBED 09:51 → J5S 10-02 01:07
PROVIDERS: ADMIT Family Medicine; ATTEND Family Medicine
PROC: 3E033GC Introduction of Other Therapeutic Substance into Peripheral Vein, Percutaneous Approach (ICD-10-PCS; principal; 2022-10-01)
PROC: 3E023GC Introduction of Other Therapeutic Substance into Muscle, Percutaneous Approach (ICD-10-PCS; 2022-10-01)
PROC: 3E033VG Introduction of Insulin into Peripheral Vein, Percutaneous Approach (ICD-10-PCS; 2022-10-01)
DX: N18.6 End stage renal disease (principal); Z99.2 Dependence on renal dialysis; I15.9 Secondary hypertension, unspecified; R45.1 Restlessness and agitation; Z71.89 Other specified counseling; F03.911 Unspecified dementia, unspecified severity, with agitation
CPT/HCPCS: 0241U-QW; 36415; 70450-TC; 71045-TC-FY; 74176-TC; 80048; 80053; 81003; 82140; 82550; 82553; 82803; 82962; 83605; 83735; 84484; 85025; 85610; 85730; 86850; 86900; 86901; 87040; 87086; 93005; 93010; 96372; 96374; 96375; 99291; G0378